=== PATIENT | male | born 1975 | race Caucasian/White ===

== ENCOUNTER → 2017-09-20 09:03 | Outpatient (CLI) | payer MEDICAID, SELFPAY ==
--- NOTE | 2017-09-20 15:30 | VAS_PTH ---
PATIENT: ISRAEL SOTO LOC: [facility] U#:[id number] AGE/SX: 50/M ROOM: RE09/20/[address]: Dr. Keon Sandra MD : 1975 BED: DIS: SPEC #: [id number] RECD: 09/21/17 08:55 STATUS: GERMANIADenise REQ #: [id number] ASHIA: 09/20/17 15:[address]: Keon Sandra DEPT: SURGICAL PATHOLOGY RECD BY: Aston Reyes ENTERED: 09/21/17 08:55 SP TYPE: VAS OTHR DR: Dr. Nestor Castellanos DO Tissues: A - Vas deferens, NOS B - Vas deferens, NOS Procedures: Surgery Specimen Level II Comments: @ Originally on account #[id number] Req #[id number] HEADER OPERATION: Bilateral partial vasectomy PRE-OP DIAGNOSIS: Sterilization TISSUE SUBMITTED: A ? Right vas deferens, B ? Left vas deferens MICROSCOPIC DIAGNOSIS A. Right vas deferens, partial vasectomy: Completely transected segment of vas deferens, no pathologic diagnosis. B. Left vas deferens, partial vasectomy: Completely transected segment of vas deferens, no pathologic diagnosis. GRABIEL:kathi 09/24/17 MICROSCOPIC DESCRIPTION Slides are reviewed. GROSS DESCRIPTION A - Received is one container designated right vas deferens. The specimen consists of a cylindrical segment of pink-denise soft tissue. The fragment measures 1 cm in length and 0.1 cm in maximum diameter. Serial sections do not reveal gross lesions. The specimen is totally submitted in one cassette. The specimen will be sectioned at the time of embedding. B - Received is one container designated left vas deferens. The specimen consists of a cylindrical segment of pink-denise soft tissue. The fragment measures 1.2 cm in length and 0.1 cm in maximum diameter. Serial sections do not reveal gross lesions. The specimen is totally submitted in one cassette. The specimen will be sectioned at the time of embedding. / GRABIEL:kathi 09/21/17 TC:4 CPT: 10890 x2
== END ==
PROVIDERS: Family Provider Student in an Organized Health Care Education/Training Program; PCP Student in an Organized Health Care Education/Training Program; Visit Provider Surgery
DX: Z30.2 Encounter for sterilization (principal)
CPT/HCPCS: 88302

== ENCOUNTER → 2017-11-09 09:34 | Outpatient (CLI) | payer MEDICAID, SELFPAY ==
[2017-11-09 14:34] LABS: Semen Analysis Post Vas ABSENT
== END ==
PROVIDERS: Visit Provider Surgery
DX: Z30.2 Encounter for sterilization (principal)
CPT/HCPCS: 89321

== ENCOUNTER 2025-04-11 15:06 | Emergency (ER) | payer MEDICAID, SELFPAY ==
[2025-04-11 15:10] VITALS: BP 134/89; PULSE 91; RESP 18; TEMP 36.7; O2SAT 97; BMI 25.2
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
--- NOTE | 2025-04-11 15:45 | RAD_ITS ---
PROCEDURE: CHEST PA AND LATERAL 04/11/2025 REASON FOR EXAM: RIGHT LOWER RIB CAGE PAIN POSTTRAUMA. TECHNIQUE: Procedure Code: RADCXR Modality: DX Procedure: CHEST PA AND LATERAL COMPARISON: None. FINDINGS: LUNGS AND PLEURA: No focal airspace consolidation. No pleural effusion or pneumothorax. HEART AND MEDIASTINUM: The heart size and mediastinal contours are normal. BONES: Slight contour abnormality of the right anterolateral 9th rib. RAD/Chest PA and Lateral IMPRESSION: Questionable nondisplaced right anterolateral 9th rib fracture. Correlate clin ically for pain in this region. Reading Location: [id number]
--- OUTSIDE RECORDS SUMMARY | 2025-04-11 16:17 | XMS RPT_ITS | CCD ---
Author Organization [facility] Care Team Providers Care Double Back Operator Name Role Phone Cebul, Keon Unavailable Unavailable Juárez, Nestor Unavailable Unavailable Juárez, Nestor Unavailable Unavailable Cebul, Keon Unavailable Unavailable Juárez, Nestor Unavailable Unavailable Juárez, Nestor Unavailable Unavailable Cebul, Keon Unavailable Unavailable Cebul, Keon Unavailable Unavailable Juárez, Nestor Unavailable Unavailable Cebul, Keon Unavailable Unavailable Juárez, Nestor Unavailable Unavailable Juárez, Nestor Unavailable Unavailable Cebul, Keon Unavailable Unavailable Nestor Juárez DO Primary Care Provider Nestor Juárez DO Primary Care Provider Nestor Juárez DO Primary Care Provider Nestor Juárez DO Primary Care Provider Perez [employer] TE[employer]ER.Margaret SNEED Unavailable Kyle [employer]ATIONAL SCHOOL TEACHER.Jey SNEED Unavailable El [employer]ATIONAL SCHOOL TEACHER.Chika SNEED Unavailable NESTOR JUÁREZ Attending Unavailable NESTOR JUÁREZ Primary Care Unavailable LINDA GRANGER Attending Unavailable NESTOR JUÁREZ Primary Care Unavailable JEY WRIGHT Attending Unavailable NESTOR JUÁREZ Primary Care Unavailable JEREMIAS ETIENNE Attending Unavailab NESTOR Lipscomb Primary Care Unavailable MARGARET TODD Referring Unavailabl e NESTOR JUÁREZ Primary Care Unavailable Allergies Allergy Classification Reported Allergen(s) Allergy Type Date of Onset Reaction(s) Facility (20 sources) Seasonal allergy; Translations: [SEASONAL ALLERGIES] Allergy to substance 0 Other: See Comments [facility] Medications Current Medications Medication Drug Class(es) Dates Sig (Normalized) Sig (Original) ascorbic acid 1000 mg oral tablet (20 sources) Vitamin C Start: 03-28-2022 End: 04-24-2022 take 1 tablet by mouth once daily Ascorbic Acid (VITAMIN C) 1,000 mg tablet Take 1 tablet by mouth once daily. 60 tablet 11 04/24/2022 Active Comment on above: Take 1 tablet by asim th once daily. calcium carb-mag ox-zinc gluc 333-133-5 mg tab (20 sources) Start: 12-15-2022 take 1 tablet by mouth twice daily calcium carb-mag ox-zinc gluc 333-133-5 mg tab Take 1 tablet by mouth twice daily. 200 tablet 11 12/15/2022 Active Start: 04-24-2022 End: 12-14-2022 take 1 tablet by mouth twice daily calcium carb-mag ox-zinc gluc 333-133-5 mg tab Take 1 tablet by mouth twice daily. 200 tablet 11 04/24/2022 12/14/2022 Discontinued Start: 04-24-2022 take 1 tablet by asim th twice daily calcium carb-mag ox-zinc gluc 333-133-5 mg tab Take 1 tablet by mouth twice daily. 200 tablet 11 04/24/2022 Active Start: 03-28-2022 End: 04-24-2022 take 1 tablet by mouth twice daily calcium carb-mag ox-zinc gluc 333-133-5 mg tab Take 1 tablet by mouth twice daily. 200 tablet 11 03/28/2022 04/24/2022 Discontinued Start: 03-28-2022 take 1 tablet by asim th twice daily calcium carb-mag ox-zinc gluc 333-133-5 mg tab Take 1 tablet by mouth twice daily. 200 tablet 11 03/28/2022 Active Comment on above: Take 1 tablet by asim th twice daily. cholecalciferol, vitD3,/vit K2 (VITAMIN D3-VITAMIN K2) 125-90 mcg cap (20 sources) Start: 12-15-2022 take 1 capsule by mouth once daily cholecalciferol, vitD3,/vit K2 (VITAMIN D3-VITAMIN K2) 125-90 mcg cap Take 1 capsule by mouth once daily. 60 capsule 11 12/15/2022 Active Start: 04-24-2022 End: 08-31-2022 take 1 capsule by mouth once daily cholecalciferol, vitD3,/vit K2 (VITAMIN D3-VITAMIN K2) 125-90 mcg cap Take 1 capsule by mouth once daily. 60 capsule 11 04/24/2022 08/31/2022 Discontinued Start: 04-24-2022 take 1 capsule by mo ut once daily cholecalciferol, vitD3,/vit K2 (VITAMIN D3-VITAMIN K2) 125-90 mcg cap Take 1 capsule by mouth once daily. 60 capsule 11 04/24/2022 Active Start: 03-28-2022 End: 04-24-2022 take 1 capsule by mouth once daily cholecalciferol, vitD3,/vit K2 (VITAMIN D3-VITAMIN K2) 125-90 mcg cap Take 1 capsule by mouth once daily. 60 capsule 11 03/28/2022 04/24/2022 Discontinued Start: 03-28-2022 take 1 capsule by mo ut once daily cholecalciferol, vitD3,/vit K2 (VITAMIN D3-VITAMIN K2) 125-90 mcg cap Take 1 capsule by mouth once daily. 60 capsule 11 03/28/2022 Active Comment on above: Take 1 capsule by mo ut once daily. cyclobenzaprine hydrochloride 10 mg oral tablet (20 sources) Muscle Relaxant Start: 023 cyclobenzaprine (FLEXERIL) 10 mg tablet Indications: Acute midline low back pain with right-sided sciatica Take 1/2 to 1 full tablet three times daily as needed for back pain/spasm 30 tablet 1 07/28/2022 Active Comment on above: Take 1/2 to 1 full t ablet three times daily as needed for back pain/spasm DULoxetine 20 mg delayed release oral capsule (2 sources) Serotonin and Norepinephrine Reuptake Inhibitor Start: 025 End: 025 take 1 capsule by mouth once daily DULoxetine DR (CYMBALTA) 20 mg capsule Indications: Irritability , Depression with anxiety Take 1 capsule by mouth once daily. 30 capsule 1 03/17/2025 05/16/2025 Active krill oil 500 mg oral capsule (20 sources) Start: 022 End: 023 take 3 capsules by mouth once daily krill oil 500 mg cap Indications: Dyslipidemia Take 3 capsules by mouth once daily. 90 capsule 3 12/15/2022 Active Comment on above: Take 3 capsules by m [facility] once daily. naproxen 500 mg oral tablet (20 sources) Nonsteroidal Anti-inflammatory Drug Start: 017 take 1 tablet by mouth twice daily at mealtime naproxen (NAPROSYN) 500 mg tablet Take 1 tablet by mouth twice daily with meals. 60 tablet 2 12/27/2016 Active Comment on above: Take 1 tablet by asim th twice daily with meals. polyethylene glycol 3350 932418 mg / potassium chloride 2970 mg / sodium bicarbonate 6740 mg / sodium chloride 5860 mg / sodium sulfate 96853 mg powder for oral solution (1 source) Osmotic Laxative Start: peg 3350-Electrolytes (GOLYTELY) 236-22.74-6.74 -5.86 gram suspension Refer to printed prep instructions from your provider. 4000 mL 03/18/2025 Active rosuvastatin calcium 10 mg oral tablet (20 sources) HMG-CoA Reductase Inhibitor Start: End: take 1 tablet by mouth once daily at bedtime rosuvastatin (CRESTOR) 10 mg tablet Take 1 tablet by mouth daily at bedtime. 90 tablet 1 01/30/2025 Active Start: 09-12-2021 take 1 tablet by asim th once daily at bedtime rosuvastatin (CRESTOR) 10 mg tablet Take 1 tablet by mouth daily at bedtime. 90 tablet 1 09/12/2021 Active Comment on above: Take 1 tablet by asim th daily at bedtime. sildenafil 100 mg oral tablet (20 sources) Phosphodiesterase 5 Inhibitor Start: 03-26-2024 End: 03-05-2025 sildenafil (VIAGRA) 100 mg tablet Indications: ED (erectile dysfunction) of organic origin Take 1 tablet by mouth as needed (erectile dysfunction). Limit to only 1 tablet per 24 hour period of time 30 tablet 1 03/05/2025 Active Start: 12-15-2022 End: 03-24-2024 sildenafil (VIAGRA) 100 mg t ablet Indications: ED (erectile dysfunction) of organic origin Take 1 tablet by mouth as needed (erectile dysfunction). Limit to only 1 tablet per 24 hour period of time 30 tablet 1 01/16/2024 03/24/2024 Discontinued Start: 03-28-2022 End: 08-31-2022 sildenafil (VIAGRA) 100 mg t ablet Indications: ED (erectile dysfunction) of organic origin Take 1 tablet by mouth as needed (erectile dysfunction). Limit to only 1 tablet per 24 hour period of time 30 tablet 1 08/01/2022 08/31/2022 Discontinued Start: 08-29-2021 End: 02-09-2022 sildenafil (VIAGRA) 100 mg t ablet Indications: ED (erectile dysfunction) of organic origin Take 1 tablet by mouth as needed (erectile dysfunction). Limit to only 1 tablet per 24 hour period of time 30 tablet 1 02/09/2022 Active Comment on above: Take 1 tablet by asim as needed (erectile dysfunction). Limit to only 1 tablet per 24 hour period of time vitamin b complex capsule (20 sources) Start: 11-20-2023 take 1 capsule by mouth once daily vitamin b complex capsule Take 1 capsule by mouth once daily. 100 capsule 11 11/20/2023 Active Start: 04-24-2022 End: 11-20-2023 take 1 capsule by mouth once daily vitamin b complex capsule Take 1 capsule by mouth once daily. 100 capsule 11 04/24/2022 11/20/2023 Discontinued Start: 04-24-2022 take 1 capsule by mo uth once daily vitamin b complex capsule Take 1 capsule by mouth once daily. 100 capsule 11 04/24/2022 Active Start: 03-28-2022 End: 04-24-2022 take 1 capsule by mouth once daily vitamin b complex capsule Take 1 capsule by mouth once daily. 100 capsule 11 03/28/2022 04/24/2022 Discontinued Start: 03-28-2022 take 1 capsule by mo uth once daily vitamin b complex capsule Take 1 capsule by mouth once daily. 100 capsule 11 03/28/2022 Active Comment on above: Take 1 capsule by mo uth once daily. Problems Active Problems Problem Classification Problem Date Documented Date Episodic/Chronic Administrative/social admission (1 source) Relationship problems; Translations: [Problem related to primary support group, unspecified] 03-18-2025 Episodic Anxiety disorders (2 sources) Mixed anxiety and depressive disorder; Translations: [Other specified anxiety disorders] Onset: 03-17-2025 03-17-2025 Chronic Anxiety disorders (2 sources) Feeling irritable; Translations: [Irritability and anger] Onset: 03-17-2025 03-17-2025 Episodic Disorders of lipid metabolism (20 sources) Dyslipidemia; Translations: [Hyperlipidemia, unspecified] Onset: 11-25-2013 03-09-2021 Chronic Other and unspecified benign neoplasm (2 sources) History of polyp of colon; Translations: [History of colonic polyps] 03-18-2025 Episodic Other connective tissue disease (1 source) Other symptoms and signs involving the musculoskeletal system; Translations: [Other musculoskeletal symptoms referable to limbs] 10-08-2024 Episodic Other male genital disorders (20 sources) Secondary erectile dysfunction; Translations: [Male erectile dysfunction, unspecified] Onset: 03-28-2022 Chronic Other screening for suspected conditions (not mental disorders or infectious disease) (20 sources) Serum creatinine raised; Translations: [Other specified abnormal findings of blood chemistry] Onset: 03-09-2021 03-09-2021 Episodic Residual codes; unclassified (2 sources) Family history of cancer of colon; Translations: [Family history of malignant neoplasm of digestive organs] 03-18-2025 Episodic Residual codes; unclassified (1 source) Family history of malignant neoplasm of digestive organs; Translations: [Family history of colon cancer in mother] Onset: 03-18-2025 Episodic Unclassified (1 source) Patient encounter status 03-18-2025 Unclassified (1 source) History of colonic polyps; Translations: [History of colonic polyps] Onset: 03-18-2025 Viral infection (1 source) Verruca vulgaris; Translations: [Other viral warts] 03-26-2024 Episodic Past or Other Problems Problem Classification Problem Date Documented Date Episodic/Chronic Abdominal pain (20 sources) Right upper quadrant pain; Translations: [Right upper quadrant pain] Onset: 08-08-2022 Episodic Contraceptive and procreative management (1 source) Encounter for sterilization; Translations: [Z30.2 - Encounter for sterilization] Onset: 09-27-2017 Episodic Genitourinary symptoms and ill-defined conditions (20 sources) Urgent desire to urinate; Translations: [Urgency of urination] Onset: 03-28-2022 03-28-2022 Episodic Malaise and fatigue (20 sources) Fatigue; Translations: [Other fatigue] Onset: 11-25-2013 11-25-2013 Episodic Other connective tissue disease (20 sources) Plantar fasciitis; Translations: [Plantar fascial fibromatosis] Onset: 12-27-2016 12-27-2016 Episodic Other endocrine disorders (20 sources) Hypotestosteronism; Translations: [Endocrine disorder, unspecified] Onset: 03-28-2022 03-28-2022 Episodic Other liver diseases (20 sources) Aspartate aminotransferase serum level raised; Translations: [Elevated AST (SGOT)] Onset: 03-09-2021 03-09-2021 Episodic Other non-traumatic joint disorders (19 sources) Pain in right hip joint; Translations: [Pain in right hip] Onset: 08-08-2022 Episodic Other non-traumatic joint disorders (14 sources) Hip pain; Translations: [Pain in right hip] Onset: 08-08-2022 08-08-2022 Episodic Other skin disorders (20 sources) Actinic keratosis; Translations: [Actinic keratosis] Onset: 06-18-2023 06-18-2023 Episodic Other skin disorders (20 sources) Seborrheic keratosis; Translations: [Other seborrheic keratosis] Onset: 06-18-2023 06-18-2023 Episodic Other skin disorders (20 sources) Trichilemmal cyst; Translations: [Pilar cyst] Onset: 07-22-2020 Resolved: 07-22-2020 07-22-2020 Episodic Spondylosis; intervertebral disc disorders; other back problems (20 sources) Acute back pain with sciatica; Translations: [Lumbago with sciatica, right side] Onset: 08-08-2022 Episodic Results Test Name Value Interpretation Reference Range Facility [facility] 03-18-2025 [facility] Office Visit (GENSWS ) ISRAEL VILLAR ([id number]) 1975 M Date Time Provider Department 03/18/25 1:00 PM LINDA GRANGER [facility] During your visit today, we recorded the following information about you: Temperature Pulse Blood pressure Weight 98 degrees 58/minute 108/69 74.9 kg Height 1.68 m Linda Granger APRN.NEDRA 03/18/2025 1:42 PM Signed HISTORY AND PHYSICAL Israel Villar : 1975 REFERRING PHYSICIAN: No referring provider defined for this encounter. CHIEF COMPLAINT: Patient presents with: Consult HPI: Israel is a 50 year old male referred for endoscopy. Israel notes due for screening colonoscopy-hx of colon polyps (2019). Israel denies abdominal pain.. Israel denies diarrhea. Israel denies constipation. Israel denies a change in bowel habits. Israel denies melena. Israel denies bright red blood per rectum. Israel notes family history of colon issues. Mother with colon caner Israel denies heartburn. Israel denies dysphagia. Israel has undergone prior endoscopy. Last colonoscopy was 02/2020 with at [facility]. Sedation: Fentanyl 100 micrograms IV, Midazolam 5 mg IV Impression: - One 8 mm polyp in the descending colon, removed with a hot snare. Resected and retrieved. Clip was placed. CONVERTED FINAL DIAGNOSIS Ascending colon polyp, biopsy (A) - Tubular adenoma. WILLY/LAURENT/alexandra 02/17/2020 Current Outpatient Medications Medication Sig DULoxetine DR (CYMBALTA) 20 mg capsule Take 1 capsule by mouth once daily. sildenafil (VIAGRA) 100 mg tablet Take 1 tablet by mouth as needed (erectile dysfunction). Limit to only 1 tablet per 24 hour period of time sildenafil (VIAGRA) 100 mg tablet Take 1 tablet by mouth as needed (erectile dysfunction). Limit to only 1 tablet per 24 hour period of time rosuvastatin (CRESTOR) 10 mg tablet Take 1 tablet by mouth daily at bedtime. vitamin b complex capsule Take 1 capsule by mouth once daily. calcium carb-mag ox-zinc gluc 333-133-5 mg tab Take 1 tablet by mouth twice daily. krill oil 500 mg cap Take 3 capsules by mouth once daily. cholecalciferol, vitD3,/vit K2 (VITAMIN D3-VITAMIN K2) 125-90 mcg cap Take 1 capsule by mouth once daily. cyclobenzaprine (FLEXERIL) 10 mg tablet Take 1/2 to 1 full tablet three times daily as needed for back pain/spasm Ascorbic Acid (VITAMIN C) 1,000 mg tablet Take 1 tablet by mouth once daily. naproxen (NAPROSYN) 500 mg tablet Take 1 tablet by mouth twice daily with meals. peg 3350-Electrolytes (GOLYTELY) 236-22.74-6.74 -5.86 gram suspension Refer to printed prep instructions from your provider. No current facility-administered medications for this visit. ALLERGIES: Seasonal Allergies PAST MEDICAL HISTORY Diagnosis Date ED (erectile dysfunction) of non-organic origin Hyperlipemia lazy eye Low back pain Seborrheic keratoses PAST SURGICAL HISTORY Procedure Laterality Date COLONOSCOPY FLX DX W/COLLJ SPEC WHEN PFRMD 03/02/2014 Colonoscopy COLONOSCOPY FLX DX W/COLLJ SPEC WHEN PFRMD 02/16/2020 Colonoscopy HERNIA REPAIR HX age 4 and 12 2 inguinal hernia repairs PAST SURGICAL HISTORY OF 2020 Removal of Pilar cyst of scalp FAMILY HISTORY Problem Relation Age of Onset Colon Cancer Mother 44 at 44 with this. Cancer Father 68 Kidney 68 Cervical Cancer Sister abnormal pap Seizures Brother Diabetes Maternal Grandfather Cancer Maternal Grandfather Cancer Paternal Grandfather SOCIAL HISTORY[1] REVIEW OF SYMPTOMS: REVIEW OF SYSTEMS: General: The patient denies fatigue, denies weight loss, denies weight gain, denies feeling hot, and feelings of cold. Eyes: The patient denies glaucoma, denies eye injury/surgery, + glasses or contacts. Ear/Nose/Throat: The patient + allergies, denies hayfever, denies ear infections, and denies bloody noses. Cardiovascular: The patient denies chest pain, denies heart disease, denies high blood pressure, denies high cholesterol, and denies poor circulation. Respiratory: The patient denies tuberculosis, denies pneumonia, denies frequent cough, denies shortness of breath, and denies coughing up blood. Gastrointestinal: The patient denies difficulty swallowing, denies acid reflux, denies ulcers, denies jaundice/hepatitis, denies gallbladder problems, denies vomiting, denies black or tarry stools, denies hemorrhoids, denies bleeding from rectum, denies diverticulitis, denies constipation, denies diarrhea, denies loss of stool control, and denies hernias. Kidney/Bladder: The patient denies kidney stones, denies urine infections, and denies bloody urine. Skin: The patient denies a history of skin cancer, denies bleeding/changing moles, and denies a history of skin rash. Neurologic: The patient denies a history of epilepsy/convulsions, denies headaches, denies head/spinal injuries, and denies stroke/ (more content not included)... Normal [facility] 25(OH)D3 SerPl-mCncon 2023 25-hydroxyvitamin D3 [Mass/Vol] 60.5 ng/mL Normal 31.0-80.0 [facility] Comment on above: Order Comment: Speci men Type: BLOOD SPECIMEN Ordering Facility: [facility] Address: [address] [place] [address] Result Comment: Clas sification of 25 OH Vitamin D status: Deficiency/Insufficiency: < or = 30 ng/ml. Sufficiency/Optimal Levels: 31-80 ng/mL Toxicity: > 100 ng/mL. Test performed by chemiluminescent immunoassay. Performed By: #### 1 989-3 #### [facility] CLIA [id number] [address] [place], [place] [address] [place] [address] [place] CBC W Auto Differential pane l (Bld)on 04-14-2024 Basophils (Bld) [#/Vol] 0.03 10*3/uL Normal <0.11 [facility] Comment on above: Order Comment: Speci men Type: BLOOD SPECIMEN Ordering Facility: [facility] Address: [address] [place] [address] Performed By: #### 5 7021-8 #### [facility] CLIA [id number] [address] [place] [address] [place] Basophils/100 WBC (Bld) 0.5 % Normal [facility] Comment on above: Order Comment: Speci men Type: BLOOD SPECIMEN Ordering Facility: [facility] Address: [address] [place] [address] Performed By: #### 5 7021-8 #### [facility] CLIA [id number] [address] [place] [address] [place] Differential cell count method Nom (Bld) Auto Normal [facility] Comment on above: Order Comment: Speci men Type: BLOOD SPECIMEN Ordering Facility: [facility] Address: [address] [place] [address] Performed By: #### 5 7021-8 #### [facility] CLIA [id number] [address] [place] [address] [place] Eosinophils (Bld) [#/Vol] 0.40 10*3/uL Normal <0.46 [facility] Comment on above: Order Comment: Speci men Type: BLOOD SPECIMEN Ordering Facility: [facility] Address: [address] [place], [place] [id number] Performed By: #### 5 7021-8 #### [facility] CLIA [id number] [address] [place] [address] [place] Eosinophils/100 WBC (Bld) 7.0 % Normal [facility] Comment on above: Order Comment: Speci men Type: BLOOD SPECIMEN Ordering Facility: [facility] Address: [address] [place] [address] Performed By: #### 5 7021-8 #### [facility] CLIA [id number] [address] [place] [address] [place] Erythrocyte distribution width (RBC) [Ratio] 12.4 % Normal 11.5-15.0 [facility] Comment on above: Order Comment: Speci men Type: BLOOD SPECIMEN Ordering Facility: [facility] Address: [address] [place] [address] Performed By: #### 5 7021-8 #### [facility] CLIA [id number] [address] [place] [address] [place] Hematocrit (Bld) [Volume fraction] 44.9 % Normal 39.0-51.0 [facility] Comment on above: Order Comment: Speci men Type: BLOOD SPECIMEN Ordering Facility: [facility] Address: [address] [place] [address] Performed By: #### 5 7021-8 #### [facility] CLIA [id number] [address] [place] [address] [place] Hemoglobin (Bld) [Mass/Vol] 15.1 g/dL Normal 13.0-17.0 [facility] Comment on above: Order Comment: Speci men Type: BLOOD SPECIMEN Ordering Facility: [facility] Address: [address] [place] [address] Performed By: #### 5 7021-8 #### [facility] CLIA [id number] [address] [place] [address] [place] Immature granulocytes (Bld) [#/Vol] 10*3/uL Normal <0.10 [facility] Comment on above: Order Comment: Speci men Type: BLOOD SPECIMEN Ordering Facility: [facility] Address: [address] [place] [address] Performed By: #### 5 7021-8 #### [facility] CLIA [id number] [address] [place] [address] [place] Immature granulocytes/100 WBC (Bld) 0.2 % Normal [facility] Comment on above: Order Comment: Speci men Type: BLOOD SPECIMEN Ordering Facility: [facility] Address: [address] [place] [address] Performed By: #### 5 7021-8 #### [facility] CLIA [id number] [address] [place] [address] [place] Lymphocytes (Bld) [#/Vol] 1.76 10*3/uL Normal 1.00-4.00 [facility] Comment on above: Order Comment: Speci men Type: BLOOD SPECIMEN Ordering Facility: [facility] Address: [address] [place] [address] Performed By: #### 5 7021-8 #### [facility] CLIA [id number] [address] [place] [address] [place] Lymphocytes/100 WBC (Bld) 30.7 % Normal [facility] Comment on above: Order Comment: Speci men Type: BLOOD SPECIMEN Ordering Facility: [facility] Address: [address] [place] [address] Performed By: #### 5 7021-8 #### [facility] CLIA [id number] [address] [place] [address] [place] MCH (RBC) [Entitic mass] 30.1 pg Normal 26.0-34.0 [facility] Comment on above: Order Comment: Speci men Type: BLOOD SPECIMEN Ordering Facility: [facility] Address: [address] [place] [address] Performed By: #### 5 7021-8 #### [facility] CLIA [id number] [address] [place] [address] [place] MCHC (RBC) [Mass/Vol] 33.6 g/dL Normal 30.5-36.0 [facility] Comment on above: Order Comment: Speci men Type: BLOOD SPECIMEN Ordering Facility: [facility] Address: [address] [place] [address] Performed By: #### 5 7021-8 #### [facility] CLIA [id number] [address] [place] [address] [place] MCV (RBC) [Entitic vol] 89.6 fL Normal 80.0-100.0 [facility] Comment on above: Order Comment: Speci men Type: BLOOD SPECIMEN Ordering Facility: [facility] Address: [address] [place] [address] Performed By: #### 5 7021-8 #### [facility] CLIA [id number] [address] [place] [address] [place] Monocytes (Bld) [#/Vol] 0.55 10*3/uL Normal <0.87 [facility] Comment on above: Order Comment: Speci men Type: BLOOD SPECIMEN [facility] [facility] Address: [address] [place] [address] Performed By: #### 5 7021-8 #### [facility] CLIA [id number] [address] [place] [address] [place] Monocytes/100 WBC (Bld) 9.6 % Normal [facility] Comment on above: Order Comment: Speci men Type: BLOOD SPECIMEN Ordering Facility: [facility] Address: [address] [place] [address] Performed By: #### 5 7021-8 #### [facility] CLIA [id number] [address] [place] [address] [place] Neutrophils (Bld) [#/Vol] 2.98 10*3/uL Normal 1.45-7.50 [facility] Comment on above: Order Comment: Speci men Type: BLOOD SPECIMEN Ordering Facility: [facility] Address: [address] [place] [address] Performed By: #### 5 7021-8 #### [facility] CLIA [id number] [address] [place] [address] [place] Neutrophils/100 WBC (Bld) 52.0 % Normal [facility] Comment on above: Order Comment: Speci men Type: BLOOD SPECIMEN Ordering Facility: [facility] Address: [address] [place] [address] Performed By: #### 5 7021-8 #### [facility] CLIA [id number] [address] [place] [address] [place] Nucleated RBC (Bld) [#/Vol] 10*3/uL Normal <0.01 [facility] Comment on above: Order Comment: Speci men Type: BLOOD SPECIMEN Ordering Facility: [facility] Address: [address] [place], [place] [address] Performed By: #### 5 7021-8 #### [facility] CLIA [id number] [address] [place] [address] [place] Nucleated RBC/100 WBC (Bld) [Ratio] 0.0 /100 WBC Normal [facility] Comment on above: Order Comment: Speci men Type: BLOOD SPECIMEN Ordering Facility: [facility] Address: [address] [place], [place] [address] Performed By: #### 5 7021-8 #### [facility] CLIA [id number] [address] [place] [address] [place] Platelet mean volume (Bld) [Entitic vol] 9.7 fL Normal 9.0-12.7 [facility] Comment on above: Order Comment: Speci men Type: BLOOD SPECIMEN Ordering Facility: [facility] Address: [address] [place], [place] [address] Performed By: #### 5 7021-8 #### [facility] CLIA [id number] [address] [place] [address] [place] Platelets (Bld) [#/Vol] 179 10*3/uL Normal 150-400 [facility] Comment on above: Order Comment: Speci men Type: BLOOD SPECIMEN Ordering Facility: [facility] Address: [address] [place] [address] Performed By: #### 5 7021-8 #### [facility] CLIA [id number] [address] [place] [address] [place] RBC (Bld) [#/Vol] 5.01 10*6/uL Normal 4.20-6.00 [facility] Comment on above: Order Comment: Speci men Type: BLOOD SPECIMEN Ordering Facility: [facility] Address: [address] [place] [address] Performed By: #### 5 7021-8 #### [facility] CLIA [id number] [address] [place] [address] [place] WBC (Bld) [#/Vol] 5.73 10*3/uL Normal 3.70-11.00 [facility] Comment on above: Order Comment: Speci men Type: BLOOD SPECIMEN Ordering Facility: [facility] Address: [address] [place] [address] Performed By: #### 5 7021-8 #### [facility] CLIA [id number] [address] [place] [id number] [place] Comprehensive metabolic 2000 panelon 04-14-2024 Albumin [Mass/Vol] 4.7 g/dL Normal 3.9-4.9 [facility] Comment on above: Order Comment: Speci men Type: BLOOD SPECIMEN Ordering Facility: [facility] Address: [address] [place] [address] Performed By: #### T FTEST #### [facility] CLIA [id number] [address] [place] [address] ALP [Catalytic activity/Vol] 72 U/L Normal 38-113 [facility] Comment on above: Order Comment: Speci men Type: BLOOD SPECIMEN Ordering Facility: [facility] Address: [address] [place] [address] Performed By: #### T FTEST #### [facility] CLIA [id number] [address] [place] [address] ALT [Catalytic activity/Vol] 18 U/L Normal 10-54 [facility] Comment on above: Order Comment: Speci men Type: BLOOD SPECIMEN Ordering Facility: [facility] Address: [address] [place] [address] Performed By: #### T FTEST #### [facility] CLIA [id number] [address] [place] [address] Anion gap [Moles/Vol] 12 mmol/L Normal 8-15 [facility] Comment on above: Order Comment: Speci men Type: BLOOD SPECIMEN Ordering Facility: [facility] Address: [address] [place] [address] Performed By: #### T FTEST #### [facility] CLIA [id number] [address] [place] [address] AST [Catalytic activity/Vol] 19 U/L Normal 14-40 [facility] Comment on above: Order Comment: Speci men Type: BLOOD SPECIMEN Ordering Facility: [facility] Address: [address] [place] [address] Performed By: #### T FTEST #### [facility] CLIA [id number] [address] [place] [address] Bilirubin [Mass/Vol] 1.0 mg/dL Normal 0.2-1.3 [facility] Comment on above: Order Comment: Speci men Type: BLOOD SPECIMEN Ordering Facility: [facility] Address: [address] [place] [address] Performed By: #### T FTEST #### [facility] CLIA [id number] [address] [place] [address] Calcium [Mass/Vol] 9.6 mg/dL Normal 8.5-10.2 [facility] Comment on above: Order Comment: Speci men Type: BLOOD SPECIMEN Ordering Facility: [facility] Address: [address] [place] [address] Performed By: #### T FTEST #### [facility] CLIA [id number] [address] [place] [address] Chloride [Moles/Vol] 105 mmol/L Normal 98-107 [facility] Comment on above: Order Comment: Speci men Type: BLOOD SPECIMEN Ordering Facility: [facility] Address: [address] [place] [address] Performed By: #### T FTEST #### [facility] CLIA [id number] [address] [place] [address] CO2 [Moles/Vol] 25 mmol/L Normal 22-30 [facility] Comment on above: Order Comment: Speci men Type: BLOOD SPECIMEN Ordering Facility: [facility] Address: [address] [place] [address] Performed By: #### T FTEST #### [facility] CLIA [id number] [address] [place] [address] Creatinine [Mass/Vol] 1.16 mg/dL Normal 0.73-1.22 [facility] Comment on above: Order Comment: Tr jordan Type: BLOOD SPECIMEN Ordering Facility: [facility] Address: [address] [place] [address] Performed By: #### T FTEST #### [facility] CLIA [id number] [address] [place] [address] Creatinine and Glomerular filtration rate.predicted panel (S/P/Bld) 77 mL/min/1.73m??? Normal >=60 [facility] Comment on above: Order Comment: Tr jordan Type: BLOOD SPECIMEN Ordering Facility: [facility] Address: [address] [place] [address] Result Comment: Karen mated Glomerular Filtration Rate (eGFR) is calculated using the 2020 CKD-EPI creatinine equation. This equation utilizes serum creatinine, sex, and age as parameters. The creatinine assay has traceable calibration to isotope dilution-mass spectrometry. Refer to KDIGO guidelines for clinical interpretation. In patients with unstable renal function, e.g. those with acute kidney injury, the eGFR may not accurately reflect actual GFR. Performed By: #### T FTEST #### [facility] CLIA [id number] [address] [place] [address] Glucose [Mass/Vol] 102 mg/dL High 74-99 [facility] Comment on above: Order Comment: Tr jordan Type: BLOOD SPECIMEN Ordering Facility: [facility] Address: [address] [place] [address] Result Comment: The [place] Diabetes Association (ADA) provides guidance for cutoff values for fasting glucose and random glucose. The ADA defines fasting as no caloric intake for at least 8 hours. Fasting plasma glucose results between 100 to 125 mg/dL indicate increased risk for diabetes (prediabetes). Fasting plasma glucose results greater than or equal to 126 mg/dL meet the criteria for diagnosis of diabetes. In the absence of unequivocal hyperglycemia, results should be confirmed by repeat testing. In a patient with classic symptoms of hyperglycemia or hyperglycemic crisis, random plasma glucose results greater than or equal to 200 mg/dL meet the criteria for diagnosis of diabetes. Reference: Standards of Medical Care in Diabetes 2016, [place] Diabetes Association. Diabetes Care. 2016.39(Suppl 1). Performed By: #### T FTEST #### [facility] CLIA [id number] [address] [place] [address] Potassium [Moles/Vol] 4.1 mmol/L Normal 3.7-5.1 [facility] Comment on above: Order Comment: Speci men Type: BLOOD SPECIMEN Ordering Facility: [facility] Address: [address] [place] [address] Performed By: #### T FTEST #### [facility] CLIA [id number] [address] [place] [address] Protein [Mass/Vol] 7.1 g/dL Normal 6.3-8.0 [facility] Comment on above: Order Comment: Speci men Type: BLOOD SPECIMEN Ordering Facility: [facility] Address: [address] [place] [address] Performed By: #### T FTEST #### [facility] CLIA [id number] [address] [place] [address] Sodium [Moles/Vol] 142 mmol/L Normal 136-144 [facility] Comment on above: Order Comment: Speci men Type: BLOOD SPECIMEN Ordering Facility: [facility] Address: [address] [place] [address] Performed By: #### T FTEST #### [facility] CLIA [id number] [address] [place] [address] Urea nitrogen [Mass/Vol] 14 mg/dL Normal 9-24 [facility] Comment on above: Order Comment: Speci men Type: BLOOD SPECIMEN Ordering Facility: [facility] Address: [address] [place] [address] Performed By: #### T FTEST #### [facility] CLIA [id number] [address] [place] [address] HbA1c (Bld)on 04-14-2024 Average glucose Estimated from glycated hemoglobin (Bld) [Mass/Vol] 105 mg/dL Normal [facility] Comment on above: Order Comment: Speci men Type: BLOOD SPECIMEN Ordering Facility: [facility] Address: [address] [place] [address] Result Comment: eAG: (Estimated average glucose) is a calculated value from HgbA1c and is counter sales representative of the average blood glucose level in the last 2-3 month period. Performed By: #### 5 5454-3 #### [facility] CLIA [id number] [address] [place] [address] [place] HbA1c (Bld) [Mass fraction] 5.3 % Normal 4.3-5.6 [facility] Comment on above: Order Comment: Tr jordan Type: BLOOD SPECIMEN Ordering Facility: [facility] Address: [address] [place] [address] Result Comment: [place] Diabetes Association guidelines indicate that patients with HgbA1c in the range 5.7-6.4% are at increased risk for development of diabetes, and intervention by lifestyle modification may be beneficial. HgbA1c greater or equal to 6.5% is considered diagnostic of diabetes. Performed By: #### 5 5454-3 #### [facility] CLIA [id number] [address] [place] [address] [place] Lipid 1996 panelon 4 Cholesterol [Mass/Vol] 147 mg/dL Normal <200 [facility] Comment on above: Order Comment: Tr jordan Type: BLOOD SPECIMEN Ordering Facility: [facility] Address: [address] [place] [address] Result Comment: <200 mg/dL, Desirable 200-239 mg/dL, Borderline high >239 mg/dL, High Performed By: #### 2 4331-1 #### [facility] CLIA [id number] [address] [place], [place] [id number] [place] [facility] CLIA [id number] [address] [place] [address] [place] #### 3016-3, 2132-9 #### [facility] CLIA [id number] [address] [place] [address] [place] Cholesterol in HDL [Mass/Vol] 46 mg/dL Normal >39 [facility] Comment on above: Order Comment: Daisyi men Type: BLOOD SPECIMEN Ordering Facility: [facility] Address: [address] [place] [address] Result Comment: 40-5 9 mg/dL, Acceptable >59 mg/dL, High: Negative risk factor for coronary heart disease <40 mg/dL, Low: Positive risk factor for coronary heart disease Performed By: #### 2 4331-1 #### [facility] CLIA [id number] [address] [place] [id number] [place] [facility] CLIA [id number] [address] [place] [address] [place] #### 3016-3, 2132-03 #### [facility] CLIA [id number] [address] [place] [address] [place] Cholesterol in LDL [Mass/Vol] 82 mg/dL Normal <100 [facility] Comment on above: Order Comment: Daisyi men Type: BLOOD SPECIMEN Ordering Facility: [facility] Address: [address] [place] [address] Result Comment: <100 mg/dL, Optimal 100-129 mg/dL, Near optimal/above optimal 130-159 mg/dL, Borderline high 160-189 mg/dL, High >189 mg/dL, Very high Secondary prevention optimal LDL Cholesterol levels are recommended to be < 70 mg/dL Performed By: #### 2 4331-1 #### [facility] CLIA [id number] [address] [place] [id number] [place] [facility] CLIA [id number] [address] [place] [address] [place] #### 3016-3, 2132-03 #### [facility] CLIA [id number] [address] [place], [place] [address] [place] Cholesterol in LDL/Cholesterol in HDL [Mass ratio] 1.78 {ratio} Normal <2.54 [facility] Comment on above: Order Comment: Speci men Type: BLOOD SPECIMEN Ordering Facility: [facility] Address: [address] [place] [address] Result Comment: Yazmin ilra: 1. National Cholesterol Education Program ATP III Guideline At-A-Glance Quick Desk Reference: National Heart, Lung, and Blood Aniwa. National Institutes of Health. 2001: NIH Publication No. 01-3305. 2. An International Atherosclerosis Society position paper: global recommendations for the management of dyslipidemia: executive summary, Atherosclerosis. 2014: 232(2):410-413. Performed By: #### 2 4331-1 #### [facility] CLIA [id number] [address] [place] [address] [place] [facility] [id number] [address] [place] [address] [place] #### 3016-3, 2132-03 #### [facility] CLIA [id number] [address] [place] [address] [place] Cholesterol in VLDL [Mass/Vol] 19 mg/dL Normal <30 [facility] Comment on above: Order Comment: Speci men Type: BLOOD SPECIMEN Ordering Facility: [facility] Address: [address] [place] [address] Performed By: #### 2 4331-1 #### [facility] CLIA [id number] [address] [place] [address] [place] [facility] [id number] [address] [place] [address] [place] #### 3016-3, 2132-03 #### [facility] CLIA [id number] [address] [place] [address] [place] Cholesterol non HDL [Mass/Vol] 101 mg/dL Normal <130 [facility] Comment on above: Order Comment: Speci men Type: BLOOD SPECIMEN Ordering Facility: [facility] Address: [address] [place], [place] [address] Result Comment: <130 mg/dL, Optimal 130-159 mg/dL, Near optimal/above optimal 160-189 mg/dL, Borderline high 190-219 mg/dL, High >219 mg/dL, Very high Secondary prevention optimal non HDL Cholesterol levels are recommended to be <100 mg/dL Performed By: #### 2 4331-1 #### [facility] CLIA [id number] [address] [place] [address] [place] [facility] CLIA [id number] [address] [place] [address] [place] #### 3016-3, 2132-03 #### [facility] CLIA [id number] [address] [place] [address] [place] Cholesterol.total/ Cholesterol in HDL [Mass ratio] 3.20 {ratio} Normal <5.10 [facility] Comment on above: Order Comment: Speci men Type: BLOOD SPECIMEN Ordering Facility: [facility] Address: [address] [place] [address] Performed By: #### 2 4331-1 #### [facility] CLIA [id number] [address] [place] [address] [place] [facility] CLIA [id number] [address] [place] [address] [place] #### 3016-3, 2132-03 #### [facility] CLIA [id number] [address] [place] [address] [place] FASTING TIME 15 hrs Normal [facility] Comment on above: Order Comment: Speci men Type: BLOOD SPECIMEN Ordering Facility: [facility] Address: [address] [place], [place] [address] Performed By: #### 2 4331-1 #### [facility] CLIA [id number] [facility] [place] [address] [place] [facility] CLIA [id number] [address] [place] [address] [place] #### 3016-3, 2132-03 #### [facility] CLIA [id number] [address] [place] [address] [place] Triglyceride [Mass/Vol] 96 mg/dL Normal <150 [facility] Comment on above: Order Comment: Speci men Type: BLOOD SPECIMEN Ordering Facility: [facility] Address: [address] [place] [address] Result Comment: <150 mg/dL, Normal 150-199 mg/dL, Borderline high 200-499 mg/dL, High >499 mg/dL, Very high Performed By: #### 2 4331-1 #### [facility] CLIA [id number] [address] [place] [address] [place] [facility] CLIA [id number] [address] [place] [address] [place] #### 3016-3, 2132-03 #### [facility] CLIA [id number] [address] [place] [address] [place] Magnesium SerPl-mCncon 04-14 Magnesium [Mass/Vol] 2.2 mg/dL Normal 1.7-2.3 [facility] Comment on above: Order Comment: Speci men Type: BLOOD SPECIMEN Ordering Facility: [facility] Address: [address] [place] [address] Performed By: #### T FTEST #### [facility] CLIA [id number] [address] [place] [address] PSA/PROSTATE SPECIFIC ANTIGE N SCREENINGon 04-14-2024 Prostate specific Ag [Mass/Vol] 0.80 ng/mL Normal <2.60 [facility] Comment on above: Order Comment: Speci men Type: BLOOD SPECIMEN Ordering Facility: [facility] Address: [address] [place] [address] Result Comment: Tota l PSA test methodology used is the Electrochemiluminescence Immunoassay by [employer]. Total PSA values by differing methodologies cannot be interchanged. Performed By: #### P SAS1 #### [facility] CLIA [id number] [address] [place] [address] [place] [address] [place] TESTOSTERONE, FREE AND TOTAL , BY EQUILIBRIUM ULTRAFILTRATION MASS SPECTROMETRYon 04-14-2024 Testosterone [Mass/Vol] 603.8 ng/dL Normal 264.0-916.0 [facility] Comment on above: Order Comment: Speci men Type: BLOOD SPECIMEN Ordering Facility: [facility] Address: [address] [place] [address] Result Comment: This [facility] LC/MS-MS method is currently certified by the CDC Hormone Standardization Program (HoSt). Adult male reference interval is based on a population of healthy nonobese males (BMI <30) between 19 and 39 years old. Sanam et.al. JCEM 2017,102;5588-3063. PMID: [id number]. Performed By: #### T FTEST #### [facility] CLIA [id number] [address] [place] [address] Testosterone Free [Mass/Vol] Comment Normal [facility] Comment on above: Order Comment: Speci men Type: BLOOD SPECIMEN Ordering Facility: [facility] Address: [address] [place] [address] Result Comment: Unab le to calculate result since non-numeric result obtained for component test. Performed By: #### T FTEST #### [facility] CLIA [id number] [address] [place] [address] Testosterone Free/Testosterone. total [Mass fraction] Normal [facility] Comment on above: Order Comment: Speci men Type: BLOOD SPECIMEN Ordering Facility: [facility] Address: [address] [place] [address] Result Comment: Test not performed. Insufficient specimen to perform or complete analysis. CONTACTED DANIEL COPPOLA AT YOUR FACILITY ON 04-23-2024 Performed By: #### T FTEST #### [facility] CLIA [id number] [address] [place] [address] TSH SerPl-aCncon 04-14-2024 TSH Qn 0.927 m[IU]/L Normal 0.270-4.200 [facility] Comment on above: Order Comment: Speci men Type: BLOOD SPECIMEN Ordering Facility: [facility] Address: [address] [place] [address] Performed By: #### 2 4331-1 #### [facility] CLIA [id number] [address] [place] [address] [place] [facility] [id number] [address] [place] [address] [place] #### 3016-3, 2132-03 #### [facility] CLIA [id number] [address] [place] [address] [place] Vit B12 SerPl-mCncon 024 Cobalamin (Vitamin B12) [Mass/Vol] 745 pg/mL Normal 232-1245 [facility] Comment on above: Order Comment: Speci men Type: BLOOD SPECIMEN Ordering Facility: [facility] Address: [address] [place] [address] Performed By: #### 2 4331-1 #### [facility] CLIA [id number] [address] [place] [address] [place] [facility] [id number] [address] [place] [address] [place] #### 3016-3, 2132-03 #### [facility] CLIA [id number] [address] [place] [address] [place] CNOVon 03-26-2024 CNOV Office Visit ([facility] ) ISRAEL VILLAR ([id number]) 1975 M Date Time Provider Department 03/26/24 2:00 PM NESTOR JUÁREZPWS During your visit today, we recorded the following information about you: Temperature Pulse Blood pressure Weight 97.8 degrees 80/minute 100/70 73.8 kg Height 1.68 m Nestor Juárez, DO 03/26/2024 2:40 PM Signed CC: Israel Villar is a 49 year old male who presents to the office for physical HPI: Overall he is doing well He is working on trying to maintain a healthy balanced diet. Needs to be weight lifting and exercising more routinely that what he is currently doing. Some fatigue, worse than in years past. Less motivation to lift etc. PAST MEDICAL HISTORY Diagnosis Date ED (erectile dysfunction) of non-organic origin Hyperlipemia lazy eye Low back pain PAST SURGICAL HISTORY Procedure Laterality Date COLONOSCOPY FLX DX W/COLLJ SPEC WHEN PFRMD 03/02/2014 Colonoscopy COLONOSCOPY FLX DX W/COLLJ SPEC WHEN PFRMD 02/16/2020 Colonoscopy HERNIA REPAIR HX age 4 and 12 2 inguinal hernia repairs Social History: Social History Tobacco Use Smoking status: Never Smokeless tobacco: Never Vaping Use Vaping status: Never Used Substance Use Topics Alcohol use: No Drug use: No FAMILY HISTORY Problem Relation Age of Onset Colon Cancer Mother 44 at 44 with this. Cancer Father 68 Kidney 68 Cervical Cancer Sister abnormal pap Seizures Brother Diabetes Maternal Grandfather Cancer Maternal Grandfather Cancer Paternal Grandfather Current Outpatient prescriptions: sildenafil (VIAGRA) 100 mg tablet Take 1 tablet by mouth as needed (erectile dysfunction). Limit to only 1 tablet per 24 hour period of time vitamin b complex capsule Take 1 capsule by mouth once daily. rosuvastatin (CRESTOR) 10 mg tablet Take 1 tablet by mouth daily at bedtime. calcium carb-mag ox-zinc gluc 333-133-5 mg tab Take 1 tablet by mouth twice daily. krill oil 500 mg cap Take 3 capsules by mouth once daily. cholecalciferol, vitD3,/vit K2 (VITAMIN D3-VITAMIN K2) 125-90 mcg cap Take 1 capsule by mouth once daily. cyclobenzaprine (FLEXERIL) 10 mg tablet Take 1/2 to 1 full tablet three times daily as needed for back pain/spasm Ascorbic Acid (VITAMIN C) 1,000 mg tablet Take 1 tablet by mouth once daily. naproxen (NAPROSYN) 500 mg tablet Take 1 tablet by mouth twice daily with meals. Allergies: ALLERGIES Allergen Reactions Seasonal Allergies Other: See Comments Sinus congestion ROS: See HPI PE: 03/26/24 1407 BP: 100/70 Pulse: 80 Temp: 36.6 ?C (97.8 ?F) TempSrc: Left Tympanic Weight: 73.8 kg (162 lb 11.2 oz) Height: 168 cm (5' 6.14) Gen: AANDO, NAD, non-toxic appearing, Pleasant, cooperative HEENT: NT/AC, PERRLA, EOMs intact b/l, nares clear and patent b/l, pharynx without erythema, exudate or lesions. MMM, Uvula midline. EACs without erythema or debris. TMs pearly avitia with intact landmarks b/l. Neck: supple, No cervical LAD, no thyromegaly, no carotid bruits CV: RRR, normal S1 and S2, no murmurs, no gallops, no rubs, Pulses 2+ and symmetric in UE and LE b/l Lungs: normal respiratory effort, CTA b/l, no wheezing or rhonchi or rales Abd: soft, NT, ND, +BS, no hepatosplenomegaly MS: FROM all 4 extremities Neuro: CN II-XII intact b/l, strength 5/5 b/l UE and LE, DTRs 2/4 UE and LE, sensation intact. Skin: warm, dry, intact, wart on left hand 3rd dorsal finger, scattered seborrheic keratoses No edema, normal pulses ASSESSMENT/PLAN: 1. Well adult exam - ICD9: V70.0, ICD10: Z00.00 (primary diagnosis) - Counseled on healthy diet and regular exercise - HEMOGLOBIN A1C - MAGNESIUM 2. Common wart - ICD9: 078.19, ICD10: B07.8 Treated x 1 with cryotherapy at request of patient, he tolerated the procedure well, no complications. 3. Dyslipidemia - ICD9: 272.4, ICD10: E78.5 - Control undetermined, due for labs - Counseled on healthy diet and regular exercise Nestor Juárez DO To ER if develops chest pain, shortness of breath, or severe worsening of symptoms. Discussed risks, benefits, alternatives, and potential side effects of medications. Patient expressed understanding and agreed with the plan. Nestor Juárez DO [address] [place] [address] Allergies As of Date: 03/26/2024 Noted Allergy Reaction SEASONAL ALLERGIES 12/24/2019 14 - Other: See Comments Comments: Sinus congestion Date Reviewed: 03/26/2024 Reviewed by: Radha Torrez LPN - Fully Assessed Reason for Visit: Yearly Exam [187] Primary Visit Diagnosis:Well adult exam [Z00.00] Other Visit Diagnoses:Common wart [B07.8] Dyslipidemia [E78.5] Order(s):HEMOGLOBIN A1C [YRWYE4P] Order #: [id number] FUTURE MAGNESIUM [SQMG1] Order #: [id number] FUTURE Prescriptions as of 03/26/2024 - otto (more content not included)... Normal [facility] No Panel Informationon 08-09 [facility] Urinalysis complete panel (U )on 08-08-2022 Bilirubin Ql (U) Negative Negative [facility] Clarity (Unsp spec) Clear Clear [facility] Color (U) Yellow Yellow [facility] Epithelial cells LM.HPF (Urine sed) [#/Area] Few [facility] Glucose Test strip (U) [Mass/Vol] Negative Trace, Negative [facility] Hemoglobin Ql (U) Negative Negative, Trace [facility] Ketones Ql (U) Negative Trace, Negative [facility] Leukocyte esterase Test strip Ql (U) 25 Angie/mL Negative, 25 Angie/mL [facility] Nitrite Ql (U) Negative Negative [facility] pH (U) 6.5 [pH] 5.0 - 8.0 [facility] Protein (U) [Mass/Vol] Trace Trace, Negative [facility] RBC LM.HPF (Urine sed) [#/Area] 0-3 /HPF 0-3 /HPF [facility] Specific gravity (U) [Rel density] 1.027 1.005 - 1.030 [facility] Urobilinogen Ql (U) Negative Negative [facility] WBC LM.HPF (Urine sed) [#/Area] 0-5 /HPF 0-5 /HPF [facility] Semen Analysis Post Vason SEMEN POST VAS ABSENT Normal [facility] Comment on above: Result Comment: CYTO SPIN PREPARATION USED FOR CONCENTRATIONOF SPECIMEN PRIOR TO STAINING AND EXAMINATIONSperms are absent.Acute inflammation.Roberto Villarreal M.D. 11/09/17 AMENDED REPORT 11/09/17 1434 SEMEN POST VAS previously reported as: ABSENTCYTOSPIN PREPARATION USED FOR CONCENTRATIONOF SPECIMEN PRIOR TO STAINING AND EXAMINATION Performed By: #### L 200.1000 ####[facility] [id number] [place], [place], [id number] Surgery Visit Reporton 09-27 Surgery Visit Report [facility] [address] [place] [address] [place] [address] [phone] VISITDate of Service: 09/27/17MR#: [id number] Acct: [id number]: ISRALE VILLAR Rep #: [id number]: 1975 Provider: Keon Sandra MDAge/Sex: 42/M [facility]: SignedIntakeIntakeVisit Reasons: F/U VASECTOMY 09/20/2017Interpreter Required: NoIs patient in pain?: NoAllergiesNo Known Allergies Allergy (Verified 09/27/17 09:00)MedicationsNK [NK] 09/27/17 [History Confirmed 09/27/17]PFSHMedical History Sterilization (Acute)Surgical History History of colonoscopy (Acute)History of inguinal hernia repair, bilateral (Acute)Family History Mother Colon cancerFather Cancerkidney and liverSocial HistorySmoking Status: Current every day smokeralcohol intake: neverHPIHPIHPI: ISRAEL VILLAR, is a 42 M who presents to the office today for surgical follow-up 1 weekstatus post bilateral partial vasectomy as a means of sterilization. The patient has some mildintermittent discomfort of the left scrotum. Otherwise he is doing wellExamGUOther: Bilateral scrotal incisions are clean and dry. Chromic sutures still present on theleft. I am not seeing any signs that would suggest infection.Assessment AND Plan1. Encounter for sterilization Z30.2PlanSutures removed from the left scrotum form today. He was given activity and wound careinstructions. He has been provided specimen containers. He is well aware that he has not yetcleared from utilizing other means of control. Further office surgical follow-up can joe needed. He is aware that 2 negative consecutive semen analysis is are required.He is additionally aware that he is not yet cleared him from utilizing other means of birthcontrolRobert Riley Sandra M.D., F.A.C.S.OrdersOrders:Plan DetailOther MedicationsDiscontinued:acetam inophen-codeine 300-30 mg Discontinued Reaso1 tab PO Q6H PRN pain Mari Fredy: Order CompletedCodingLevel of Care CodeGlobal Post OpDiagnosesEncounter for sterilization Z30. 0937 Date [facility] Signature: Date (if applicable)CC: Nestor Kaye, Normal [facility] Surgery Visit Reporton 09-20 Surgery Visit Report [facility] [address] [place] [address] [phone] VISITDate of Service: 09/20/17MR#: [id number] Acct: [id number]: ISRAEL VILLAR Rep #: [id number]: 1975 Provider: Keon Sandra MDAge/Sex: 42/M Location[facility] [place].WSAStatus: SignedIntakeIntakeVisit Reasons: vasectomyInterpreter Required: NoIs patient in pain?: NoAllergiesNo Known Allergies Allergy (Verified 09/20/17 15:52)Medicationsacetaminophen 300 mg-codeine 30 mg tablet 1 tab PO Q6H PRN #10 tab 09/19/17 [Rx Wozdskucz70/14/18]PFSHSurgical History History of colonoscopy (Acute)History of inguinal hernia repair, bilateral (Acute)Family History Mother Colon cancerFather Cancerkidney and liverSocial HistorySmoking Status: Current every day smokeralcohol intake: neverHPIHPIHPI: ISRAEL VILLAR, is a 42 M who presents to the office today for bilateral partial vasectomyas a means of sterilizationOffice ProceduresProcedure Time OutTime OutInformed consent given: YesConsent signed: YesTime out checklist: patient, procedure, site marked/identified, positioning of patient,supplies available, allergies confirmed, team agrees on procedureTime out staff in room: YesTime out verified: YesTime out date: 09/20/17Time out time: 15:40VasectomyTime OutConsent Signed: YesTime out performed: YesTime: 15:35Time out checklist: patient, procedure, site marked/identified, positioning of patient,supplies available, allergies confirmed, team agrees on procedureProcedure Performed ByProcedure performed by: rcebulVasectomyVasectomy: YesProvider DocumentationProvider Documentation: Bilateral partial vasectomyTime out and informed consent was obtained. The patient was taken to the procedure room andplaced supine on the table. Bilateral scrotal areas were clipper and Betadine prepped. 1%lidocaine mixed 50-50 with 0.5% Marcaine was utilized as a local anesthetic. Less than a totalof 10 cc was utilized. Bilateral scrotal incisions were created. Sharp and blunt dissection wasused to identify the vas deferens. A segment was cleared, the ends were crushed, and segmentswere excised. The ends were secured with 3-0 chromic inverted and resecured. The skin edgeswere approximated with simple sutures of 3-0 chromic. Topical antibiotic ointment and gauzeapplied. He was given activity and wound care instructions. The specimens are submitted informalin for analysis. He is scheduled to return to my office in 1 week's time. He has beenprovided analgesics as prescribed. He is well aware that he has not yet cleared from utilizingother means of control. He is aware that 2 negative consecutive semen counts will berequired prior to releasing him from utilizing other means of control. He is aware thatthis is his responsibility to complete. He has had an opportunity to ask and have questionsanswered.Blood loss minimal. Specimens segments of vas deferens. Complications none.Keon Sandra M.D., F.A.C.S.Assessment AND PlanProblems1. Sterilization Z30.2PlanSuccessful bilateral partial vasectomy as a means of sterilization. The patient has been givenactivity and wound care instructions. He is scheduled return to the office in 1 week's timefor routine follow-up. He is well aware that he is not yet cleared from utilizing other meansof control. He has been provided a prescription for Tylenol with codeine. The specimensare submitted in formalin for analysis.Keon Sandra M.D., F.A.C.S.OrdersOrders:Medicatio nsNew:CodingLevel of Care CodeNo ChargeDiagnosesSterilization Z30.2Additional CodesVasectomy (02361)09/20/17 1638 Date [facility] Signature: Date (if applicable)CC: DO Ernie Chin [facility] VAS DEFERENS (STERILIZATION) on 09-20-2017 VAS DEFERENS (STERILIZATION) Patient: ISRAEL VILLAR : 1975 (42/M) Acct Num: [id number] Phys: Keon Sandra MD Unit Num: [id number] Loc: [facility] Specimen: Received: 09/21/17854 Spec Type: VAS TISSUES TISSUES: A. Vas deferens, NOS B. Vas deferens, NOS GROSS DESCRIPTION A - Received is one container designated right vas deferens. The specimen consists of a cylindrical segment of pink-denise soft tissue. The fragment measures 1 cm in length and 0.1 cm in maximum diameter. Serial sections do not reveal gross lesions. The specimen is totally submitted in one cassette. The specimen will be sectioned at the time of embedding. B - Received is one container designated left vas deferens. The specimen consists of a cylindrical segment of pink-denise soft tissue. The fragment measures 1.2 cm in length and 0.1 cm in maximum diameter. Serial sections do not reveal gross lesions. The specimen is totally submitted in one cassette. The specimen will be sectioned at the time of embedding. / SJ:kathi 09/21/17 TC:4 CPT: 12896 x2 HEADER OPERATION: Bilateral partial vasectomy PRE-OP DIAGNOSIS: Sterilization TISSUE SUBMITTED: A Right vas deferens, B Left vas deferens MICROSCOPIC DESCRIPTION Slides are reviewed. MICROSCOPIC DIAGNOSIS A. Right vas deferens, partial vasectomy: Completely transected segment of vas deferens, no pathologic diagnosis. B. Left vas deferens, partial vasectomy: Completely transected segment of vas deferens, no pathologic diagnosis. SJ:kathi 09/24/17 Signed Roberto Villarreal 09/24/17 Normal [facility] Comment on above: Performed By: #### P VAS ####[facility] [id number] [place], [address] VAS DEFERENS (STERILIZATION) Patient: ISRAEL VILLAR : 1975 (42/M) Acct Num: [id number] Phys: Keon Sandra MD Unit Num: [id number] Loc: LABSPEC Specimen: Received: 09/21/17854 Spec Type: VAS TISSUES TISSUES: A. Vas deferens, NOS B. Vas deferens, NOS GROSS DESCRIPTION A - Received is one container designated right vas deferens. The specimen consists of a cylindrical segment of pink-denise soft tissue. The fragment measures 1 cm in length and 0.1 cm in maximum diameter. Serial sections do not reveal gross lesions. The specimen is totally submitted in one cassette. The specimen will be sectioned at the time of embedding. B - Received is one container designated left vas deferens. The specimen consists of a cylindrical segment of pink-denise soft tissue. The fragment measures 1.2 cm in length and 0.1 cm in maximum diameter. Serial sections do not reveal gross lesions. The specimen is totally submitted in one cassette. The specimen will be sectioned at the time of embedding. / GRABIEL:kathi 09/21/17 TC:4 CPT: 54868 x2 HEADER OPERATION: Bilateral partial vasectomy PRE-OP DIAGNOSIS: Sterilization TISSUE SUBMITTED: A Right vas deferens, B Left vas deferens MICROSCOPIC DESCRIPTION Slides are reviewed. MICROSCOPIC DIAGNOSIS A. Right vas deferens, partial vasectomy: Completely transected segment of vas deferens, no pathologic diagnosis. B. Left vas deferens, partial vasectomy: Completely transected segment of vas deferens, no pathologic diagnosis. GRABIEL:kathi 09/24/17 Signed Roberto Villarreal 09/24/17 Normal [facility] Comment on above: Performed By: #### P VAS ####[facility] [id number] [place], [address] Surgery Visit Reporton 08-01 Surgery Visit Report [facility] [address] [place] [address] [place] [address] [phone] VISITDate of Service: 08/01/17MR#: [id number] Acct: [id number]: ISRAEL VILLAR Rep #: [id number]: 1975 Provider: Keon Sandra MDAge/Sex: 42/M Location: [facility].WSAStatus: SignedIntakeVital Signs08/01/17 Height 5 ft 8 in08/01/17 Weight: 155 lb08/01/17 Body Mass Index (BMI) 23.6IntakeVisit Reasons: VASECTOMYIs patient in pain?: NoAllergiesNo Known Allergies Allergy (Verified 08/01/17 15:09)Medicationslorazepam 2 mg tablet 2 mg PO QDAY #1 tab 08/01/17 [Rx Confirmed 08/01/17]PFSHSurgical HistoryHistory of colonoscopy (Acute)History of inguinal hernia repair, bilateral (Acute)Family HistoryMother Colon cancerFather Cancerkidney and liverSocial HistorySmoking Status: Current every day smokeralcohol intake: neverHPIHPIHPI: ISRAEL VILLAR, is a 42 M who presents to the office today for consultation regardingbilateral partial vasectomy and as a means of sterilization. [facility] Ju[facility] and I will return a copy of my office note to Dr. Juárez.The patient states that he enjoys good health. He states that he is not on any chronicmedications other than Naprosyn. He is not allergic to any medications.ROSGeneralGeneral: No weight change, appetite, fatigue, colon cancer, breast cancer or weaknessHEENTHEENT: No difficulty swallowing, eye injury, eye surgery, swollen glands or hoarsenessEndoEndocrine: No thyroid disease, diabetes mellitus, thyroid cancer, Hair loss, heat intoleranceor cold intoleranceSkinSkin: Yes changing molesBreastBreast: No left breast lump, right breast lump, nipple discharge, breast pain, abnormalmammogram, abnormal US or breast enlargementMuscMusculoskeletal : Yes back problemsCardioCardiovascular: No murmur, pacemaker, heart disease, atrial fibrillation, high blood pressure,heart attack, heart stent, palpitations, shortness of breat with exertion or chest painPsychPsychiatric: Yes depression and anxietyRespRespiratory: No shortness of breath, No sleep apnea, No cough, No COPD, No asthma, Noemphysema, No wheezingGastroGastrointestinal : No abdominal pain, No nausea or vomiting, No diarrhea, No constipation, Noblood in stool, No acid reflux, No hemorrhoids, No ulcers, No gallbladder problem, [place]ack,tarry stoolsHemaHematologic: No blood thinners, No blood disorders, No bleeding, No anemia, No blood clotsNeuroNeurologic: No system reviewed and no additional complaints, except as docu, No as per HPI, Noabnormal walking, No abnormal hearing, No abnormal movements, No abnormal speech, No behavioralchanges, No burning sensations, No confusion, No seizure-like activity, No unsteadiness, Nodizziness, No localized weakness, No frequent falls, No headache(s), No lack of coordination,No loss of vision, No memory loss, No numbness, No other visual disturbances, No radiatingpain, No restless legs, No sensory deficit, No fainting, No tingling, No tremor(s), Noweakness, No otherExamChestBreast Palpation: No nipple dischargeCardioHeart Sounds: no murmursGUTestes: normalOther: Evidence of bilateral inguinal hernia repairs with oblique incisions bilateral groins.No testicular masses. No inguinal defects. Vas deferens are nicely palpableAssessment AND Plan1. Encounter for sterilization [id number] gentleman who presents to discuss sterilization in the form of bilateral partialvasectomy. We have because the technique, benefits, risks, alternatives. No guarantees ofsuccess have been offered. He is aware that this is an office based procedure. He has beenprovided with lorazepam to be taken preprocedure. He is fully aware that he is not permittedto drive after taking that medication. He is aware that I consider this to be a permanentprocedure. He is aware that semen analysis will be required post procedure. He is aware that2 negative consecutive semen counts will be required prior to his being released from utilizingother means of control. He has had an opportunity to ask and have questions answered.We will schedule and proceed at his discretion.I appreciate the very kind opportunity of assisting with his surgical careCc: Dr. Myranda Sandra M.D., F.A.C.S.MedicationsNew:lorazep am (Ativan) take 1 tablet 45 minutes prior to your proce2 mg PO QDAY vasectomydureCodingLevel of Care Codediane Merida,level 1DiagnosesEncounter for sterilization Z30. 1525 Date Keon Sandra [facility] Signature: Date (if applicable)CC: Nestor Juárez DO Normal [facility] Vital Signs Date Time Vital Sign Value Performing Clinician Terryi sabas 03-18-2025 12:51-0400 Body height 168 cm Linda Bárbara 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 Work Phone: [facility] 03-18-2025 12:51-0400 Body mass index (BMI) [Ratio] 26.55 kg/m2 Linda Bárbara 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 Work Phone: [facility] 03-18-2025 12:51-0400 Body temperature 98.01 [degF] Linda Bárbara [employer]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 Work Phone: [facility] 03-18-2025 12:51-0400 Body weight 74.93 kg Linda Bárbara [employer]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 Work Phone: [facility] 03-18-2025 12:51-0400 Diastolic blood pressure 69 mm[Hg] Linda Bárbara [employer]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 Work Phone: [facility] 03-18-2025 12:51-0400 Heart rate 58 /min Linda Bárbara [employer]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 Work Phone: [facility] 03-18-2025 12:51-0400 SaO2% (BldA) [Mass fraction] 99 % Linad Bárbara [employer]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 Work Phone: [facility] 03-18-2025 12:51-0400 Systolic blood pressure 108 mm[Hg] Linda Bárbara 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 Work Phone: [facility] 03-26-2024 14:07-0400 Body height 168 cm Nestor Juárez DO Work Phone: [facility] 03-26-2024 14:07-0400 Body mass index (BMI) [Ratio] 26.15 kg/m2 Nestor Juárez DO Work Phone: [facility] 03-26-2024 14:07-0400 Body temperature 97.81 [degF] Nestor Juárez DO Work Phone: [facility] 03-26-2024 14:07-0400 Body weight 73.8 kg Nestor Juárez DO Work Phone: [facility] 03-26-2024 14:07-0400 Diastolic blood pressure 70 mm[Hg] Nestor Juárez DO Work Phone: [facility] 03-26-2024 14:07-0400 Heart rate 80 /min Nestor Juárez DO Work Phone: [facility] 03-26-2024 14:07-0400 Systolic blood pressure 100 mm[Hg] Nestor Juárez DO Work Phone: [facility] 01-23-2024 16:01-0400 Body mass index (BMI) [Ratio] 24.72 kg/m2 Margaret Todd [employer]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 Work Phone: [facility] 01-23-2024 16:01-0400 Body weight 73.12 kg Margaret Todd [employer]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 Work Phone: [facility] 01-23-2024 16:01-0400 Diastolic blood pressure 78 mm[Hg] Margaret Todd [employer]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 Work Phone: [facility] 01-23-2024 16:01-0400 Heart rate 66 /min Margaret Todd [employer]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 Work Phone: [facility] 01-23-2024 16:01-0400 Respiratory rate 16 /min Margaret Todd [employer]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 Work Phone: [facility] 01-23-2024 16:01-0400 SaO2% (BldA) [Mass fraction] 97 % Margaret Todd [employer]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 Work Phone: [facility] 01-23-2024 16:01-0400 Systolic blood pressure 100 mm[Hg] Margaret Todd DOG POUND ATTENDANT Work Phone: [facility] 06-18-2023 12:08-0500 Body height 172 cm Nestor Juárez DO Work Phone: [facility] 06-18-2023 12:08-0500 Body temperature 97 [degF] Nestor Juárez DO Work Phone: [facility] 06-18-2023 12:08-0500 Body weight 78.02 kg Nestor Juárez DO Work Phone: [facility] 06-18-2023 12:08-0500 Diastolic blood pressure 60 mm[Hg] Nestor Juárez DO Work Phone: [facility] 06-18-2023 12:08-0500 Heart rate 64 /min Nestor Juárez DO Work Phone: [facility] 06-18-2023 12:08-0500 Respiratory rate 16 /min Nestor Juárez DO Work Phone: [facility] 06-18-2023 12:08-0500 Systolic blood pressure 100 mm[Hg] Nestor Juárez DO Work Phone: [facility] 08-07-2022 10:28-0500 Body temperature 98.8 [degF] Nestor Juárez DO Work Phone: [facility] 08-07-2022 10:28-0500 Body weight 79.83 kg Nestor Juárez DO Work Phone: [facility] 08-07-2022 10:28-0500 Diastolic blood pressure 60 mm[Hg] Nestor Juárez DO Work Phone: [facility] 08-07-2022 10:28-0500 Heart rate 64 /min Nestor Juárez DO Work Phone: [facility] 08-07-2022 10:28-0500 Respiratory rate 16 /min Nestor Juárez DO Work Phone: [facility] 08-07-2022 10:28-0500 Systolic blood pressure 100 mm[Hg] Nestor Juárez DO Work Phone: [facility] 07-28-2022 07:26-0500 Body weight 79.92 kg Jey Kyle 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 Work Phone: [facility] 07-28-2022 07:26-0500 Diastolic blood pressure 82 mm[Hg] Jey Kyle [employer]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 Work Phone: [facility] 07-28-2022 07:26-0500 Heart rate 71 /min Jey Kyle 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 Work Phone: [facility] 07-28-2022 07:26-0500 Respiratory rate 16 /min Jey Kyle 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 Work Phone: [facility] 07-28-2022 07:26-0500 SaO2% (BldA) [Mass fraction] 95 % Jey Kyle 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 Work Phone: [facility] 07-28-2022 07:26-0500 Systolic blood pressure 124 mm[Hg] Jey Kyle 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 Work Phone: [facility] Encounters Encounter Date Encounter Type Care Provider Facility Start: 03-18-2025 End: 03-18-2025 Patient encounter procedure Linda Granger 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 Work Phone: General Surgery Comment on above: Screen for colon can cer (Primary Dx); History of colonic polyps; Family history of colon cancer in mother Start: 03-18-2025 End: 03-18-2025 ambulatory LINDA BÁRBARA Facility:[facility] Start: 03-17-2025 End: 03-17-2025 Telemedicine consultation with patient Jey Wright 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 Work Phone: [facility] [place] Start: 03-17-2025 End: 03-17-2025 ambulatory Jey Kyle 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 Work Phone: [facility] [place] Comment on above: Irritability (Primar y Dx); Depression with anxiety; Relationship problems Start: 03-05-2025 End: 03-05-2025 Refill Nestor L Juárez DO Work Phone: [facility] Comment on above: Refill Request Start: 03-04-2025 End: 03-04-2025 Refill Josefa Kwok [employer] SCHOOL TEACHERCarlosDOG POUND ATTENDANT Work Phone: [facility] [place] Comment on above: Refill Request Start: 01-29-2025 End: 01-30-2025 Refill Nestor L Juárez DO Work Phone: [facility] [place] Comment on above: Refill Request Start: 01-01-2025 End: 01-01-2025 Refill Nestor L Juárez DO Work Phone: [facility] Comment on above: Refill Request Start: 10-19-2024 End: 10-20-2024 Refill Nestor L Juárez DO Work Phone: [facility] [place] Comment on above: Refill Request Start: 10-08-2024 End: 10-08-2024 ambulatory Jeremias Etienne MD Work Phone: [facility] [place] Comment on above: Acute low back pain without sciatica, unspecified back pain laterality (Primary Dx); Weakness of both lower extremities Start: 10-08-2024 End: 10-08-2024 Telemedicine consultation with patient Jeremias Etienne MD Work Phone: [facility] [place] Start: 08-08-2024 End: 08-08-2024 ambulatory Nestor L Juárez DO Work Phone: [facility] [place] Comment on above: Unable to renew sild enafil 100 mg tablet Refill Request Start: 06-30-2024 End: 06-30-2024 Refill Nestor L Juárez DO Work Phone: [facility] [place] Comment on above: Refill Request Start: 06-29-2024 End: 06-30-2024 ambulatory Nestor L Juárez DO Work Phone: [facility] [place] Comment on above: Unable to renew medi cation Start: 05-29-2024 End: 05-30-2024 Refill Nestor Juárez DO Work Phone: [facility] [place] Comment on above: Refill Request Start: 04-14-2024 End: 04-14-2024 ambulatory MARGARET TODD Facility:[facility] Start: 03-26-2024 End: 03-26-2024 ambulatory NESTOR JUÁREZ Facility:[facility] Start: 03-26-2024 End: 03-26-2024 Patient encounter procedure Nestor Juárez DO Work Phone: [facility] [place] Comment on above: Well adult exam (Annel lola Dx); Common wart; Dyslipidemia Start: 03-26-2024 End: 03-26-2024 Patient encounter status Nestor Juárez DO Work Phone: [facility] Work Phone: Start: 03-24-2024 End: 03-26-2024 Refill Nestor Juárez DO Work Phone: [facility] [place] Comment on above: Refill Request Start: 01-23-2024 End: 01-23-2024 Patient encounter procedure Margaret Todd APRN.DOG POUND ATTENDANT Work Phone: [facility] [place] Comment on above: Seborrheic keratoses (Primary Dx); Screening for prostate cancer; Dyslipidemia; Well adult exam; Fatigue, unspecified type Start: 01-23-2024 End: 01-23-2024 Patient encounter status Margaret Perez LEDESMA.DOG POUND ATTENDANT Work Phone: [facility] Start: 01-21-2024 ambulatory Nestor avitia DO Work Phone: [facility] [place] Start: 01-21-2024 Patient encounter procedure Nestor Juárez DO Work Phone: [facility] [place] Comment on above: Appointment? Start: 01-16-2024 Refill Nestor Whalen son DO Work Phone: [facility] [place] Comment on above: Refill Request Start: 11-20-2023 Refill Nestor avitia DO Work Phone: [facility] [place] Comment on above: Refill Request Start: 10-31-2023 Refill Nestor avitia DO Work Phone: [facility] [place] Comment on above: Refill Request Start: 08-23-2023 Refill Margaret Todd [employer]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 Work Phone: [facility] [place] Comment on above: Refill Request Start: 06-18-2023 End: 06-18-2023 Patient encounter procedure Nestor Juárez DO Work Phone: [facility] [place] Comment on above: Well adult exam (Annel lola Dx); Neck pain; Fatigue, unspecified type; Screening for prostate cancer; Incomplete emptying of bladder; Actinic keratosis; Seborrheic keratoses Start: 06-18-2023 End: 06-18-2023 Patient encounter status Nestor Juárez DO Work Phone: [facility] Work Phone: Start: 05-03-2023 Refill Margaret Todd [employer]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 Work Phone: [facility] [place] Comment on above: Refill Request Start: 04-30-2023 Refill Margaret Todd [employer]ATIONAL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 Work Phone: [facility] [place] Comment on above: Refill Request Start: 03-04-2023 Refill Nestor avitia DO Work Phone: [facility] [place] Comment on above: Refill Request Start: 08-31-2022 Refill Josefa Kwok [employer]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 Work Phone: [facility] [place] Comment on above: Refill Request Start: 08-09-2022 End: 08-09-2022 Subsequent hospital visit by physician Rebecca [facility] [place] Work Phone: Radiology Comment on above: Right hip pain [M25. 551] Elevated LFTs [R79.8 9] Start: 08-07-2022 End: 08-07-2022 Patient encounter procedure Nestor Juárez DO Work Phone: [facility] [place] Comment on above: Right hip pain (Prim nella Dx); Acute right-sided low back pain with right-sided sciatica; Elevated LFTs; RUQ abdominal pain Start: 08-01-2022 Refill Margaretpatricia Todd VOCATIONAL SCHOOL TEACHER.[facility] Work Phone: [facility] [place] Comment on above: Refill Request Urinalysis Start: 07-28-2022 End: 07-28-2022 Patient encounter procedure Jey Wright [employer]ATIONAL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 Work Phone: [facility] [place] Comment on above: Acute midline low ba ck pain with right-sided sciatica (Primary Dx) Start: 04-24-2022 Refill Nestor avitia DO Work Phone: [facility] [place] Comment on above: Refill Request (Lopez sfer meds [facility] to [facility]) Start: 04-23-2022 ambulatory Nestor avitia DO Work Phone: [facility] [place] Comment on above: Perscribtions Start: 04-19-2022 Refill Nestor avitia DO Work Phone: [facility] Comment on above: Refill Request Start: 02-09-2022 Refill Margaret Zurawic k [employer]ATIONAL SCHOOL TEACHER.[facility] Work Phone: [facility] Comment on above: Refill Request Start: 12-07-2021 Refill Margaret Zurawic k V[employer] S[employer]OL TEACHER.[facility] Work Phone: [facility] [place] Comment on above: Refill Request Start: 10-25-2021 Refill Margaret Zurawic k V[employer] S[employer]OL TEACHER.[facility] Work Phone: [facility] [place] Comment on above: Refill Request Start: 09-10-2021 Telephone encounter Nestor chavez DO Work Phone: [facility] Comment on above: Results Start: 03-09-2021 Patient encounter status Joaquim Juárez DO Work Phone: [facility] Work Phone: Start: 03-09-2021 Encounter for prema l adult medical examination without abnormal findings NESTOR JUÁREZ [facility] Start: 11-09-2017 Ambulatory Keon Cebul Facility:[facility] Start: 09-27-2017 End: 09-27-2017 Ambulatory Keon Cebul Facility:[facility] Start: 09-20-2017 End: 09-20-2017 Ambulatory Keon Cebul Facility:[facility] Start: 09-20-2017 Ambulatory Keon Cebul Facility:[facility] Start: 08-01-2017 End: 08-01-2017 Ambulatory Keon Cebul Facility:[facility] Procedures Date Procedure Procedure Detail Performing Clinician Start: 04-14-2024 Lipid 1996 panel - S guillermina or Plasma Nestor Juárez DO Work Phone: Start: 06-26-2023 Lipid 1996 panel - S guillermina or Plasma Margaret Todd [employer]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 Work Phone: Start: 08-09-2022 End: 08-09-2022 Us abdominal real time w/image limited Nestor Hurtado Juárez DO Work Phone: Start: 08-09-2022 Radex hip unilateral with pelvis 2-3 views Nestor Hurtado Juárez DO Work Phone: Start: 03-23-2022 Lipid 1996 panel - S guillermina or Plasma Margaret Todd [employer]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 Work Phone: Start: 03-08-2021 Adult depression scr eening assessment Nestor Juárez DO Work Phone: Start: 02-16-2020 Colonoscopy Nestor Gar rison DO Work Phone: Plan of Treatment Date Care Activity Detail Author Start: 04-13-2031 Urine microalbumin profile [facility] Start: 04-14-2029 Lipid panel Lipid Screening [facility] Start: 06-26-2028 Lipid panel Lipid Screening [facility] Start: 04-14-2027 Diabetes Screening Diabetes Screenin [facility] Start: 03-23-2027 Lipid 1996 panel - S guillermina or Plasma Lipid Screening [facility] Start: 03-23-2027 LIPID SCREEN LIPID SCREEN [facility] Start: 09-02-2026 LIPID SCREEN LIPID SCREEN [facility] Start: 06-26-2026 Diabetes Screening Diabetes Screenin g [facility] Start: 04-05-2025 DIABETES SCREEN DIABETES SCREEN [facility] Start: 04-05-2025 Diabetes Screening Diabetes Screenin g [facility] Start: 04-01-2025 End: 04-01-2025 Patient encounter procedure 04/01/2025 7:30 AM EDT Appointment Ambulatory Surgery [address] [place] [address] Niru Washington, DO [address] [place] [address] Screen for colon cancer [Z12.11]; History of colonic polyps [Z86.0100]; Family history of colon cancer in mother [Z80.0] Ambulatory Surgery Comment on above: Screen for colon can cer [Z12.11]; History of colonic polyps [Z86.0100]; Family history of colon cancer in mother [Z80.0] Start: 03-09-2025 Influenza vaccination [facility] Start: 02-15-2025 Colonoscopy COLONOSCOPY [facility] Start: 02-15-2025 COLORECTAL CANCER SCREENING COLORECTAL CANCER SCREENING [facility] Start: 02-15-2025 Screening for malign ant neoplasm of colon [facility] Start: 2025 Pneumococcal Vaccine : 50+ (1 of 1 - PCV) Pneumococcal Vaccine: 50+ (1 of 1 - PCV) [facility] Start: 2025 Shingrix Vaccine (1 of 2) Barajas grix Vaccine (1 of 2) [facility] Start: 09-02-2024 DIABETES SCREEN DIABETES SCREEN [facility] Start: 06-18-2024 Covid-19 Vaccine (#1) Covid-19 Vacci ne (#1) [facility] Comment on above: Postponed from 07/16 (Declined at this time) Start: 06-18-2024 Covid-19 Vaccine () Covid-19 Vaccine () [facility] Comment on above: Postponed from 03/09 (Declined at this time) Start: 04-24-2024 End: 07-24-2024 25-hydroxyvitamin D3 [Mass/volume] in Serum or Plasma VITAMIN D 25 HYDROXY Lab Routine Fatigue, unspecified type Expected: 04/24/2024, Expires: 07/24/2024 [facility] Comment on above: Expected: 04/24/2024 , Expires: 07/24/2024 Start: 04-24-2024 End: 07-24-2024 CBC W Auto Differential panel - Blood COMPLETE BLOOD COUNT AND DIFFERENTIAL Lab Routine Well adult exam Expected: 04/24/2024, Expires: 07/24/2024 [facility] Comment on above: Expected: 04/24/2024 , Expires: 07/24/2024 Start: 04-24-2024 End: 07-24-2024 Cobalamin (Vitamin B12) [Mass/volume] in Serum or Plasma VITAMIN B12 Lab Routine Fatigue, unspecified type Expected: 04/24/2024, Expires: 07/24/2024 [facility] Comment on above: Expected: 04/24/2024 , Expires: 07/24/2024 Start: 04-24-2024 End: 07-24-2024 Comprehensive metabolic 2000 panel - Serum or Plasma COMPREHENSIVE METABOLIC PANEL Lab Routine Well adult exam Expected: 04/24/2024, Expires: 07/24/2024 [facility] Comment on above: Expected: 04/24/2024 , Expires: 07/24/2024 Start: 04-24-2024 End: 07-24-2024 Lipid 1996 panel - Serum or Plasma LIPID PANEL BASIC Lab Routine Dyslipidemia Expected: 04/24/2024, Expires: 07/24/2024 [facility] Work Phone: Comment on above: Expected: 04/24/2024 , Expires: 07/24/2024 Start: 04-24-2024 End: 07-24-2024 PSA/PROSTATE SPECIFIC ANTIGEN SCREENING PSA/PROSTATE SPECIFIC ANTIGEN SCREENING Lab Routine Screening for prostate cancer Expected: 04/24/2024, Expires: 07/24/2024 [facility] Comment on above: Expected: 04/24/2024 , Expires: 07/24/2024 Start: 04-24-2024 End: 07-24-2024 TESTOSTERONE, FREE AND TOTAL TESTOSTERONE, FREE AND TOTAL Lab Routine Fatigue, unspecified type Expected: 04/24/2024, Expires: 07/24/2024 [facility] Comment on above: Expected: 04/24/2024 , Expires: 07/24/2024 Start: 04-24-2024 End: 07-24-2024 Thyrotropin [Units/volume] in Serum or Plasma THYROID STIMULATING HORMONE Lab Routine Fatigue, unspecified type Expected: 04/24/2024, Expires: 07/24/2024 [facility] Comment on above: Expected: 04/24/2024 , Expires: 07/24/2024 Start: 03-26-2024 End: 06-25-2024 Hemoglobin A1c in Blood HEMOGLOBIN A1C Lab Routine Well adult exam Expected: 03/26/2024, Expires: 06/25/2024 [facility] Work Phone: Comment on above: Expected: 03/26/2024 , Expires: 06/25/2024 Start: 03-26-2024 End: 06-25-2024 Magnesium [Mass/volume] in Serum or Plasma MAGNESIUM Lab Routine Well adult exam Expected: 03/26/2024, Expires: 06/25/2024 [facility] Comment on above: Expected: 03/26/2024 , Expires: 06/25/2024 Start: 03-09-2024 Covid-19 Vaccine ( season) Covid-19 Vaccine ( season) [facility] Start: 03-09-2024 Covid-19 Vaccine ( season) Covid-19 Vaccine ( season) [facility] Start: 03-09-2024 Influenza vaccination [facility] Start: 01-23-2024 End: 01-23-2024 Patient encounter procedure 01/23/2024 7:00 PM EDT Office Visit Family Carissa Garcia [address] [place] [address] Abebe Ledezma MD [address] [place], [place] [id number] Spots on arms/hands [facility] [place] Comment on above: Spots on arms/hands Start: 01-06-2024 Influenza vaccination Influenza Vacc ine (#1) [facility] Comment on above: Postponed from 03/09 (Declined at this time) Start: 07-09-2023 Behavioral Health Screening Behavioral Health Screening [facility] Start: 07-09-2023 Depression Assessment Depression Ass essment [facility] Start: 06-18-2023 End: 09-17-2023 25-hydroxyvitamin D3 [Mass/volume] in Serum or Plasma VITAMIN D 25 HYDROXY Lab Routine Well adult exam Fatigue, unspecified type Expected: 06/18/2023, Expires: 09/17/2023 [facility] Work Phone: Comment on above: Expected: 06/18/2023 , Expires: 09/17/2023 Start: 06-18-2023 End: 09-17-2023 C reactive protein [Mass/volume] in Serum or Plasma C-REACTIVE PROTEIN (CRP) Lab Routine Neck pain Expected: 06/18/2023, Expires: 09/17/2023 [facility] Work Phone: Comment on above: Expected: 06/18/2023 , Expires: 09/17/2023 Start: 06-18-2023 End: 09-17-2023 CBC W Auto Differential panel - Blood CBC + DIFF Lab Routine Well adult exam Fatigue, unspecified type Expected: 06/18/2023, Expires: 09/17/2023 [facility] Work Phone: Comment on above: Expected: 06/18/2023 , Expires: 09/17/2023 Start: 06-18-2023 End: 09-17-2023 Cobalamin (Vitamin B12) [Mass/volume] in Serum or Plasma VITAMIN B12 BLOOD Lab Routine Well adult exam Fatigue, unspecified type Expected: 06/18/2023, Expires: 09/17/2023 [facility] Work Phone: Comment on above: Expected: 06/18/2023 , Expires: 09/17/2023 Start: 06-18-2023 End: 09-17-2023 Comprehensive metabolic 2000 panel - Serum or Plasma COMP METABOLIC PANEL Lab Routine Well adult exam Fatigue, unspecified type Expected: 06/18/2023, Expires: 09/17/2023 [facility] Work Phone: Comment on above: Expected: 06/18/2023 , Expires: 09/17/2023 Start: 06-18-2023 End: 09-17-2023 Hemoglobin A1c in Blood HGB A1C Lab Routine Well adult exam Expected: 06/18/2023, Expires: 09/17/2023 [facility] Work Phone: Comment on above: Expected: 06/18/2023 , Expires: 09/17/2023 Start: 06-18-2023 End: 09-17-2023 Lipid 1996 panel - Serum or Plasma LIPID PANEL BASIC Lab Routine Well adult exam Expected: 06/18/2023, Expires: 09/17/2023 [facility] Work Phone: Comment on above: Expected: 06/18/2023 , Expires: 09/17/2023 Start: 06-18-2023 End: 09-17-2023 PSA/PROSTSPECAG SCRN PSA/PROSTSPECAG SCRN Lab Routine Screening for prostate cancer Incomplete emptying of bladder Expected: 06/18/2023, Expires: 09/17/2023 [facility] Work Phone: Comment on above: Expected: 06/18/2023 , Expires: 09/17/2023 Start: 06-18-2023 End: 09-17-2023 TESTOSTERONE, FREE AND TOTAL TESTOSTERONE, FREE AND TOTAL Lab Routine Well adult exam Fatigue, unspecified type Expected: 06/18/2023, Expires: 09/17/2023 [facility] Work Phone: Comment on above: Expected: 06/18/2023 , Expires: 09/17/2023 Start: 06-18-2023 End: 09-17-2023 Thyrotropin [Units/volume] in Serum or Plasma TSH BLD Lab Routine Well adult exam Fatigue, unspecified type Expected: 06/18/2023, Expires: 09/17/2023 [facility] Work Phone: Comment on above: Expected: 06/18/2023 , Expires: 09/17/2023 Start: 06-18-2023 End: 09-17-2023 Thyroxine (T4) free [Mass/volume] in Serum or Plasma T4 FREE/FREE THYROX Lab Routine Well adult exam Fatigue, unspecified type Expected: 06/18/2023, Expires: 09/17/2023 [facility] Work Phone: Comment on above: Expected: 06/18/2023 , Expires: 09/17/2023 Start: 06-18-2023 End: 09-17-2023 Triiodothyronine (T3) Free [Mass/volume] in Serum or Plasma T3 FREE BLD Lab Routine Well adult exam Fatigue, unspecified type Expected: 06/18/2023, Expires: 09/17/2023 [facility] Work Phone: Comment on above: Expected: 06/18/2023 , Expires: 09/17/2023 Start: 06-18-2023 End: 09-17-2023 Urinalysis complete panel - Urine URINALYSIS, WITH MICROSCOPIC Lab Routine Incomplete emptying of bladder Expected: 06/18/2023, Expires: 09/17/2023 [facility] Work Phone: Comment on above: Expected: 06/18/2023 , Expires: 09/17/2023 Start: 03-28-2023 COVID-19 VACCINE (#1) COVID-19 VACCI NE (#1) [facility] Comment on above: Postponed from 07/16 (Declined at this time) Start: 03-09-2023 Influenza vaccination [facility] Start: 01-05-2023 Influenza vaccination INFLUENZA (#1) [facility] Comment on above: Postponed from 03/09 (Declined at this time) Start: 08-02-2022 End: 10-02-2022 Bacteria identified in Urine by Culture URINE CULTURE Microbiology Routine ED (erectile dysfunction) of organic origin Expected: 08/02/2022, Expires: 10/02/2022 [facility] Work Phone: Comment on above: Expected: 08/02/2022 , Expires: 10/02/2022 Start: 08-02-2022 End: 10-02-2022 Urinalysis complete panel - Urine URINALYSIS, WITH MICROSCOPIC Lab Routine ED (erectile dysfunction) of organic origin Expected: 08/02/2022, Expires: 10/02/2022 [facility] Work Phone: Comment on above: Expected: 08/02/2022 , Expires: 10/02/2022 Start: 07-09-2022 [facility]MENT [facility] Start: 03-09-2022 Influenza vaccination [facility] Start: 03-08-2022 Adult depression scr eening assessment DEPRESSION SCREENING [facility] Start: 07-09-2021 DEPRESSION ASSESSMENT [facility] Start: 01-14-2020 COLOGUARD (FIT-DNA) COLOGUARD (FIT-D NA) [facility] Start: 01-14-[address] COLONOGRAPHY [facility] Start: 01-14-2020 FECAL OCCULT BLOOD FECAL OCCULT BLOO D [facility] Start: 01-14-2020 Screening for malign ant neoplasm of colon [facility] Start: 01-14-2020 SIGMOIDOSCOPY SIGMOIDOSCOPY [facility] Start: 1994 Hepatitis B Vaccine (1 of 3 - 19+ 3-dose series) Hepatitis B Vaccine (1 of 3 - 19+ 3-dose series) [facility] Start: 1993 Anxiety Screening Anxiety Screening [facility] Start: 1993 Depression Screening Depression Scre ening [facility] Start: 1993 HIV SCREENING HIV SCREENING [facility] Start: 1993 HIV screening HIV Screening [facility] Start: 01-14-1980 COVID-19 VACCINE (#1) COVID-19 VACCI NE (#1) [facility] Start: 01-14-1980 COVID-19 VACCINE (1) COVID-19 VACCIN E (1) [facility] Start: 1975 COVID-19 VACCINE (#1) COVID-19 VACCI NE (#1) [facility] Start: 1975 HEPATITIS B (1 of 3 - 3-dose series) HEPATITIS B (1 of 3 - 3-dose series) [facility] Start: 1975 Hepatitis B Vaccine (1 of 3 - 3-dose series) Hepatitis B Vaccine (1 of 3 - 3-dose series) [facility] End: 07-17-2024 Radex spine cervical 4 or 5 views XR CERV OTHER 4V AP/LAT/OBL Radiology Routine Neck pain 1 Occurrences starting 06/18/2023 until 07/17/2024 [facility] Work Phone: Comment on above: 1 Occurrences starti ng 06/18/2023 until 07/17/2024 End: 09-06-2023 Radex spine lumbosacral 2/3 views XR LUMBAR GENERAL 3V AP/LAT/L5-S1 Radiology Routine Right hip pain Acute right-sided low back pain with right-sided sciatica 1 Occurrences starting 08/07/2022 until 09/06/2023 [facility] Work Phone: Comment on above: 1 Occurrences starti ng 08/07/2022 until 09/06/2023 End: 03-18-2026 Screening colonoscopy COLONOSCOPY SCREENING Endoscopy Routine Screen for colon cancer History of colonic polyps Family history of colon cancer in mother 1 Occurrences starting 03/18/2025 until 03/18/2026 [facility] Work Phone: Comment on above: 1 Occurrences starti ng 03/18/2025 until 03/18/2026 End: 09-06-2023 Us abdominal real time w/image limited US ABD RT UPPER QUADRANT Radiology Routine Elevated LFTs RUQ abdominal pain 1 Occurrences starting 08/07/2022 until 09/06/2023 [facility] Work Phone: Comment on above: 1 Occurrences starti ng 08/07/2022 until 09/06/2023 End: 09-06-2023 XR HIP GENERAL 3V PELV/AP/LAT RIGHT XR HIP GENERAL 3V PELV/AP/LAT RIGHT Radiology Routine Right hip pain Acute right-sided low back pain with right-sided sciatica 1 Occurrences starting 08/07/2022 until 09/06/2023 [facility] Work Phone: Comment on above: 1 Occurrences starti ng 08/07/2022 until 09/06/2023 [facility] Immunizations Immunization Date Immunization Notes Care Provider Jerrod zabala 04-13-2021 tetanus toxoid, redu tea diphtheria toxoid, and acellular pertussis vaccine, adsorbed Nestor Juárez DO Work Phone: [facility] Work Phone: 04-12-2018 influenza virus vaccine, unspecified formulation Margaret Todd APRN.[employer] ATTEND[employer] Work Phone: [facility] Payers Date Payer Category Payer Medicaid [id number] 2017 Unknown [id number] 2009 Medicaid [employer] [id number] 2009-Present [phone] [address] [place] [address] Medicaid [id number] 2009 Medicaid [id number] Social History Date Type Detail Facility Start: 07-25-2011 End: 07-28-2022 Tobacco smoking status NHIS Never smoked tobacco [facility] Work Phone: Start: 07-25-2011 End: 07-28-2022 Tobacco use and exposure Smokeless tobacco non-user [facility] Work Phone: Start: 03-08-2021 End: 03-18-2025 Alcohol intake Current non-drinker of alcohol (finding) [facility] Start: 1975 Sex Assigned At Not on file [facility] Start: 03-26-2022 End: 04-05-2022 Exposure to SARS-CoV-2 (event) Not sure [facility] Start: 07-28-2022 End: 05-23-2023 History of Social function [facility] Work Phone: Start: 07-28-2022 End: 05-23-2023 Tobacco use panel [facility] Work Phone: Start: 06-09-2012 Adult Depression Scr eening Assessment 0 [facility] Work Phone: Do you belong to any clubs or organizations such as holiness groups, unions, fraternal or athletic groups, or school groups? No [facility] Are you now , , , , never or living with a partner? [facility] Do you feel stress - tense, restless, nervous, or anxious, or unable to sleep at night because your mind is troubled all the time - these days [OSQ] Only a little [facility] Functional Status Date Assessment Result Facility 02-10-2014 Are you deaf, or do you have serious difficulty hearing No 02/10/2014 8:00 AM EDT Jayde Crowe LPN No [facility] 02-10-2014 Are you blind, or do you have serious difficulty seeing, even when wearing glasses No 02/10/2014 8:00 AM EDT Jayde Crowe LPN No [facility] 02-10-2014 Do you have serious difficulty walking or climbing stairs No 02/10/2014 8:00 AM EDT Jayde Crowe LPN No [facility] 02-10-2014 Do you have difficul ty dressing or bathing No 02/10/2014 8:00 AM EDT Jayde Crowe LPN No [facility] 02-10-2014 Because of a physica l, mental, or emotional condition, do you have difficulty doing errands alone such as visiting a physician's office or shopping No 02/10/2014 8:00 AM EDT Jayde Crowe LPN No [facility] Mental Status Date Assessment Result Facility 02-10-2014 Because of a physica l, mental, or emotional condition, do you have serious difficulty concentrating, remembering, or making decisions No 02/10/2014 8:00 AM EDT Jayde Crowe LPN No [facility] Clinical Notes 07-22-2020 to 03-18-2025 Jey Wright APRN.NEDRA - 03/18/2025 2:37 PM Linda Reza APRN.NEDRA - 03/18/2025 1:00 PM EDTTelephone Encounter - Christina Perdue LPN - 03/05/2025 10:19 AM EDTPatient Instructions Note Date & Type Note Facility 03-18-2025 Note HNO ID: [id number] Author: JEY WRIGHT APRN.NEDRA Service: ? Author Type: Nurse Practitioner Type: Progress Notes Filed: 03/18/2025 14:42 Note Text: I have communicated my name and active licensure. The patient's identity and physical location were verified at the time of this visit. Either the patient or their legal counter sales representative has been informed of the risks and benefits of -- and alternatives to -- treatment through a remote evaluation and consents to proceed with the evaluation remotely. Subjective The patient is a 50-year-old male presenting for evaluation of depressive and anxiety symptoms. Depression and Anxiety: - Israel Villar is struggling with moving on from 's infidelity 5 years ago. - Previously attended therapy for a year with his ; no longer in counseling. - Reports functioning well at work and being present for family, but experiences ongoing emotional struggle. - Expresses lack of confidence and trust in returning to counseling. - Previously prescribed Zoloft but did not take it. - Reports some anxiety symptoms. - Previously experienced outbursts of anger, now improved. - has difficulty with complete accountability. - Concerned about the impact of marital issues on children. - Recently stopped taking Ashwagandha and Dojia. - Interested in trying medication to help with mood stabilization. Objective There were no vitals taken for this visit. Pleasant, cooperative, denies SI 1. Irritability (R45.4) 2. Depression with anxiety (F41.8) 3. Relationship problems (Z63.9) - Chronic relationship stress due to mutual infidelity and difficulty moving past spouse's infidelity; previously attended couples therapy for one year with temporary improvement. - Ongoing depressive symptoms, anxiety, and irritability; no current outbursts. - Start Cymbalta at lowest dose, once daily; discussed as preferable to Zoloft for combined depression, anxiety, and irritability. - Advised patient to take medication at the same time each day. - Discussed that medication may help stabilize mood but will not resolve underlying relationship issues. - Encouraged individual counseling as an adjunct to medication, though patient expressed concerns about impact on spouse. - Follow-up in 6 weeks to assess response to medication. Visit was conducted via [employer] Patient Location: Patient Home or Place of Residence [facility] 03-18-2025 History of Present illness Narrative I have communicated my name and active licensure. The patient's identity and physical location were verified at the time of this visit. Either the patient or their legal counter sales representative has been informed of the risks and benefits of -- and alternatives to -- treatment through a remote evaluation and consents to proceed with the evaluation remotely. Subjective The patient is a 50-year-old male presenting for evaluation of depressive and anxiety symptoms. Depression and Anxiety: - Israel Villar is struggling with moving on from 's infidelity 5 years ago. - Previously attended therapy for a year with his ; no longer in counseling. - Reports functioning well at work and being present for family, but experiences ongoing emotional struggle. - Expresses lack of confidence and trust in returning to counseling. - Previously prescribed Zoloft but did not take it. - Reports some anxiety symptoms. - Previously experienced outbursts of anger, now improved. - has difficulty with complete accountability. - Concerned about the impact of marital issues on children. - Recently stopped taking Ashwagandha and Dojia. - Interested in trying medication to help with mood stabilization. Objective There were no vitals taken for this visit. Pleasant, cooperative, denies SI 1. Irritability (R45.4) 2. Depression with anxiety (F41.8) 3. Relationship problems (Z63.9) - Chronic relationship stress due to mutual infidelity and difficulty moving past spouse's infidelity; previously attended couples therapy for one year with temporary improvement. - Ongoing depressive symptoms, anxiety, and irritability; no current outbursts. - Start Cymbalta at lowest dose, once daily; discussed as preferable to Zoloft for combined depression, anxiety, and irritability. - Advised patient to take medication at the same time each day. - Discussed that medication may help stabilize mood but will not resolve underlying relationship issues. - Encouraged individual counseling as an adjunct to medication, though patient expressed concerns about impact on spouse. - Follow-up in 6 weeks to assess response to medication. Visit was conducted via [facility] Patient Location: Patient Home or Place of Residence documented in this encounter [facility] 03-18-2025 History of Present illness Narrative HISTORY AND PHYSICAL Israel Villar : 1975 REFERRING PHYSICIAN: No referring provider defined for this encounter. CHIEF COMPLAINT: Patient presents with: Consult HPI: Israel is a 50 year old male referred for endoscopy. Israel notes due for screening colonoscopy-hx of colon polyps (2019). Israel denies abdominal pain.. Israel denies diarrhea. Israel denies constipation. Israel denies a change in bowel habits. Israel denies melena. Israel denies bright red blood per rectum. Israel notes family history of colon issues. Mother with colon caner Israel denies heartburn. Israel denies dysphagia. Israel has undergone prior endoscopy. Last colonoscopy was 02/2020 with at [facility]. Sedation: Fentanyl 100 micrograms IV, Midazolam 5 mg IV Impression: - One 8 mm polyp in the descending colon, removed with a hot snare. Resected and retrieved. Clip was placed. CONVERTED FINAL DIAGNOSIS Ascending colon polyp, biopsy (A) - Tubular adenoma. WILLY/LAURENT/alexandra 02/17/2020 Current Outpatient Medications Medication Sig DULoxetine DR (CYMBALTA) 20 mg capsule Take 1 capsule by mouth once daily. sildenafil (VIAGRA) 100 mg tablet Take 1 tablet by mouth as needed (erectile dysfunction). Limit to only 1 tablet per 24 hour period of time sildenafil (VIAGRA) 100 mg tablet Take 1 tablet by mouth as needed (erectile dysfunction). Limit to only 1 tablet per 24 hour period of time rosuvastatin (CRESTOR) 10 mg tablet Take 1 tablet by mouth daily at bedtime. vitamin b complex capsule Take 1 capsule by mouth once daily. calcium carb-mag ox-zinc gluc 333-133-5 mg tab Take 1 tablet by mouth twice daily. krill oil 500 mg cap Take 3 capsules by mouth once daily. cholecalciferol, vitD3,/vit K2 (VITAMIN D3-VITAMIN K2) 125-90 mcg cap Take 1 capsule by mouth once daily. cyclobenzaprine (FLEXERIL) 10 mg tablet Take 1/2 to 1 full tablet three times daily as needed for back pain/spasm Ascorbic Acid (VITAMIN C) 1,000 mg tablet Take 1 tablet by mouth once daily. naproxen (NAPROSYN) 500 mg tablet Take 1 tablet by mouth twice daily with meals. peg 3350-Electrolytes (GOLYTELY) 236-22.74-6.74 -5.86 gram suspension Refer to printed prep instructions from your provider. No current facility-administered medications for this visit. ALLERGIES: Seasonal Allergies PAST MEDICAL HISTORY Diagnosis Date ED (erectile dysfunction) of non-organic origin Hyperlipemia lazy eye Low back pain Seborrheic keratoses PAST SURGICAL HISTORY Procedure Laterality Date COLONOSCOPY FLX DX W/COLLJ SPEC WHEN PFRMD 03/02/2014 Colonoscopy COLONOSCOPY FLX DX W/COLLJ SPEC WHEN PFRMD 02/16/2020 Colonoscopy HERNIA REPAIR HX age 4 and 12 2 inguinal hernia repairs PAST SURGICAL HISTORY OF 2020 Removal of Pilar cyst of scalp FAMILY HISTORY Problem Relation Age of Onset Colon Cancer Mother 44 at 44 with this. Cancer Father 68 Kidney 68 Cervical Cancer Sister abnormal pap Seizures Brother Diabetes Maternal Grandfather Cancer Maternal Grandfather Cancer Paternal Grandfather SOCIAL HISTORY[1] REVIEW OF SYMPTOMS: REVIEW OF SYSTEMS: General: The patient denies fatigue, denies weight loss, denies weight gain, denies feeling hot, and feelings of cold. Eyes: The patient denies glaucoma, denies eye injury/surgery, + glasses or contacts. Ear/Nose/Throat: The patient + allergies, denies hayfever, denies ear infections, and denies bloody noses. Cardiovascular: The patient denies chest pain, denies heart disease, denies high blood pressure, denies high cholesterol, and denies poor circulation. Respiratory: The patient denies tuberculosis, denies pneumonia, denies frequent cough, denies shortness of breath, and denies coughing up blood. Gastrointestinal: The patient denies difficulty swallowing, denies acid reflux, denies ulcers, denies jaundice/hepatitis, denies gallbladder problems, denies vomiting, denies black or tarry stools, denies hemorrhoids, denies bleeding from rectum, denies diverticulitis, denies constipation, denies diarrhea, denies loss of stool control, and denies hernias. Kidney/Bladder: The patient denies kidney stones, denies urine infections, and denies bloody urine. Skin: The patient denies a history of skin cancer, denies bleeding/changing moles, and denies a history of skin rash. Neurologic: The patient denies a history of epilepsy/convulsions, denies headaches, denies head/spinal injuries, and denies stroke/TIA. Psychiatric: The patient denies psychiatric medications, + depression, and denies voices. Endocrine: The patient denies thyroid disorders, denies diabetes, and denies hormonal problems. Hematologic: The patient denies a history of bruising, denies bleeding, and denies anemia. Infections: The patient denies a history of measles and mumps, denies rheumatic fever, and denies sexually transmitted diseases. Musculoskeletal: The patient + back pain/injury, denies back problems, denies sciatica, denies knee/foot trouble, denies arthritis, or denies gout. PHYSICAL EXAMINATION: General: The patient is 50 year old, male well nourished, well hydrated in no acute distress. The patient is oriented to time, place, and person. VITALS: Blood pressure 108/69, pulse (!) 58, temperature 36.7 C (98 F), temperature source Temporal, height 168 cm (5' 6.14), weight 74.9 kg (165 lb 3.2 oz), SpO2 99%. Body mass index is 26.55 kg/m . HEENT: Normal cephalic, ataumatic, pupils are equally round, sclera are anicteric, mucous membranes are moist, oropharynx is clear. Neck has no masses or asymmetry . Respiratory: Clear to auscultation. Cardiac: Regular rate and rhythm. Abdominal exam: Soft, nontender, with no palpable masses. No hepatosplenomegaly. No palpable hernias. Extremities: no clubbing or cyanosis LABORATORY VALUES: As Noted RADIOLOGIC STUDIES: As Noted Assessment IMPRESSION: screen for colon cancer, history of colon polyps, family history of colon cancer in mother PLAN: I have reviewed my findings with the surgeon. Will plan for lower endoscopy. We discussed the risks and benefits of the planned endoscopy in terms understandable to the patient. I have informed the patient that complications can occur including failure to complete the endoscopy and perforation. Israel had the opportunity to ask questions concerning the planned endoscopy. Israel freely consents to surgery. I plan to use Golytely bowel preparation I have explained to the patient the difference between IV conscious sedation and MAC anesthesia - and I have offered either, according to the patient's wishes. I have explained that with IV conscious sedation there is no anesthesia provider available and therefore there is a limitation of the amount of IV medications that can be given and that the patient may wake up in the middle of the procedure and/or experience pain/discomfort during the procedure. Further discussion was done and the patient was given the opportunity to ask questions and all questions were answered. Israel chooses IV conscious sedation. Israel was counseled that if there are changes in his/her medical condition, to let the office know if surgery should proceed. If there are changes in patient's medical condition from time of this encounter to the day of the procedure that preclude anesthesia, patient may have procedure cancelled for patient's safety. Diagnoses: (Z12.11) Screen for colon cancer (primary encounter diagnosis) (Z86.0100) History of colonic polyps (Z80.0) Family history of colon cancer in mother Portions of this documentation were copied and pasted from previous office visit notes in order to provide a cohesive continuity of the history. The note has been reviewed and edited and updated as necessary. Linda Granger APRN.CNP [1] Social History Tobacco Use Smoking status: Never Smokeless tobacco: Never Vaping Use Vaping status: Never Used Substance Use Topics Alcohol use: No Drug use: No documented in this encounter [facility] 03-18-2025 Note HNO ID: [id number] Author: LINDA GRANGER APRN.CNP Service: ? Author Type: Nurse Practitioner Type: Progress Notes Filed: 03/18/2025 13:42 Note Text: HISTORY AND PHYSICAL Israel Villar : 1975 REFERRING PHYSICIAN: No referring provider defined for this encounter. CHIEF COMPLAINT: Patient presents with: Consult HPI: Israel is a 50 year old male referred for endoscopy. Israel notes due for screening colonoscopy-hx of colon polyps (2019). Israel denies abdominal pain.. Israel denies diarrhea. Israel denies constipation. Israel denies a change in bowel habits. Israel denies melena. Israel denies bright red blood per rectum. Israel notes family history of colon issues. Mother with colon caner Israel denies heartburn. Israel denies dysphagia. Israel has undergone prior endoscopy. Last colonoscopy was 02/2020 with at [facility]. Sedation: Fentanyl 100 micrograms IV, Midazolam 5 mg IV Impression: - One 8 mm polyp in the descending colon, removed with a hot snare. Resected and retrieved. Clip was placed. CONVERTED FINAL DIAGNOSIS Ascending colon polyp, biopsy (A) - Tubular adenoma. KL/LAURENT/alexandra 02/17/2020 Current Outpatient Medications Medication Sig DULoxetine DR (CYMBALTA) 20 mg capsule Take 1 capsule by mouth once daily. sildenafil (VIAGRA) 100 mg tablet Take 1 tablet by mouth as needed (erectile dysfunction). Limit to only 1 tablet per 24 hour period of time sildenafil (VIAGRA) 100 mg tablet Take 1 tablet by mouth as needed (erectile dysfunction). Limit to only 1 tablet per 24 hour period of time rosuvastatin (CRESTOR) 10 mg tablet Take 1 tablet by mouth daily at bedtime. vitamin b complex capsule Take 1 capsule by mouth once daily. calcium carb-mag ox-zinc gluc 333-133-5 mg tab Take 1 tablet by mouth twice daily. krill oil 500 mg cap Take 3 capsules by mouth once daily. cholecalciferol, vitD3,/vit K2 (VITAMIN D3-VITAMIN K2) 125-90 mcg cap Take 1 capsule by mouth once daily. cyclobenzaprine (FLEXERIL) 10 mg tablet Take 1/2 to 1 full tablet three times daily as needed for back pain/spasm Ascorbic Acid (VITAMIN C) 1,000 mg tablet Take 1 tablet by mouth once daily. naproxen (NAPROSYN) 500 mg tablet Take 1 tablet by mouth twice daily with meals. peg 3350-Electrolytes (GOLYTELY) 236-22.74-6.74 -5.86 gram suspension Refer to printed prep instructions from your provider. No current facility-administered medications for this visit. ALLERGIES: Seasonal Allergies PAST MEDICAL HISTORY Diagnosis Date ED (erectile dysfunction) of non-organic origin Hyperlipemia lazy eye Low back pain Seborrheic keratoses PAST SURGICAL HISTORY Procedure Laterality Date COLONOSCOPY FLX DX W/COLLJ SPEC WHEN PFRMD 03/02/2014 Colonoscopy COLONOSCOPY FLX DX W/COLLJ SPEC WHEN PFRMD 02/16/2020 Colonoscopy HERNIA REPAIR HX age 4 and 12 2 inguinal hernia repairs PAST SURGICAL HISTORY OF 2020 Removal of Pilar cyst of scalp FAMILY HISTORY Problem Relation Age of Onset Colon Cancer Mother 44 at 44 with this. Cancer Father 68 Kidney 68 Cervical Cancer Sister abnormal pap Seizures Brother Diabetes Maternal Grandfather Cancer Maternal Grandfather Cancer Paternal Grandfather SOCIAL HISTORY[1] REVIEW OF SYMPTOMS: REVIEW OF SYSTEMS: General: The patient denies fatigue, denies weight loss, denies weight gain, denies feeling hot, and feelings of cold. Eyes: The patient denies glaucoma, denies eye injury/surgery, + glasses or contacts. Ear/Nose/Throat: The patient + allergies, denies hayfever, denies ear infections, and denies bloody noses. Cardiovascular: The patient denies chest pain, denies heart disease, denies high blood pressure, denies high cholesterol, and denies poor circulation. Respiratory: The patient denies tuberculosis, denies pneumonia, denies frequent cough, denies shortness of breath, and denies coughing up blood. Gastrointestinal: The patient denies difficulty swallowing, denies acid reflux, denies ulcers, denies jaundice/hepatitis, denies gallbladder problems, denies vomiting, denies black or tarry stools, denies hemorrhoids, denies bleeding from rectum, denies diverticulitis, denies constipation, denies diarrhea, denies loss of stool control, and denies hernias. Kidney/Bladder: The patient denies kidney stones, denies urine infections, and denies bloody urine. Skin: The patient denies a history of skin cancer, denies bleeding/changing moles, and denies a history of skin rash. Neurologic: The patient denies a history of epilepsy/convulsions, denies headaches, denies head/spinal injuries, and denies stroke/TIA. Psychiatric: The patient denies psychiatric medications, + depression, and denies voices. Endocrine: The patient denies thyroid disorders, denies diabetes, and denies hormonal problems. Hematologic: The patient denies a history of bruising, denies bleeding, and den (more content not included)... [facility] 03-05-2025 Telephone encounter Note Prescription Refill Information The patient has been identified by name and date of : Yes Caregiver verified no other encounters exist for this prescription request: Yes Caregiver confirmed with patient/requestor that no other refills are due, in the near future, with this provider at this time: Yes The last office visit in the department: 10/08/24 Does the patient have a future office visit with this provider/department: Yes Requested Prescriptions Pending Prescriptions Disp Refills sildenafil (VIAGRA) 100 mg tablet 30 tablet 1 Sig: Take 1 tablet by mouth as needed (erectile dysfunction). Limit to only 1 tablet per 24 hour period of time Christina Perdue LPN March 05, 2025 10:19 AM [facility] 03-05-2025 Miscellaneous Notes Prescription Refill Information The patient has been identified by name and date of : Yes Caregiver verified no other encounters exist for this prescription request: Yes Caregiver confirmed with patient/requestor that no other refills are due, in the near future, with this provider at this time: Yes The last office visit in the department: 10/08/24 Does the patient have a future office visit with this provider/department: Yes Requested Prescriptions Pending Prescriptions Disp Refills sildenafil (VIAGRA) 100 mg tablet 30 tablet 1 Sig: Take 1 tablet by mouth as needed (erectile dysfunction). Limit to only 1 tablet per 24 hour period of time Christina Perdue LPN March 05, 2025 10:19 AM documented in this encounter [facility] 03-04-2025 Telephone encounter Note This was just refilled in January for 90 days with 1 refill. Pt notified of such. ' [facility] 03-04-2025 Miscellaneous Notes This was just refilled in January for 90 days with 1 refill. Pt notified of such. ' documented in this encounter [facility] 01-30-2025 Telephone encounter Note Prescription Refill Information The patient has been identified by name and date of : Yes Caregiver verified no other encounters exist for this prescription request: Yes Caregiver confirmed with patient/requestor that no other refills are due, in the near future, with this provider at this time: Yes The last office visit in the department: 10/08/24 Does the patient have a future office visit with this provider/department: No Requested Prescriptions Pending Prescriptions Disp Refills rosuvastatin (CRESTOR) 10 mg tablet 90 tablet 1 Sig: Take 1 tablet by mouth daily at bedtime. Lauren Lauren LPN January 30, 2025 10:11 AM [facility] 01-30-2025 Miscellaneous Notes Prescription Refill Information The patient has been identified by name and date of : Yes Caregiver verified no other encounters exist for this prescription request: Yes Caregiver confirmed with patient/requestor that no other refills are due, in the near future, with this provider at this time: Yes The last office visit in the department: 10/08/24 Does the patient have a future office visit with this provider/department: No Requested Prescriptions Pending Prescriptions Disp Refills rosuvastatin (CRESTOR) 10 mg tablet 90 tablet 1 Sig: Take 1 tablet by mouth daily at bedtime. Lauren Lauren LPN January 30, 2025 10:11 AM documented in this encounter [facility] 10-20-2024 Telephone encounter Note Prescription Refill Information The patient has been identified by name and date of : Yes Caregiver verified no other encounters exist for this prescription request: Yes Caregiver confirmed with patient/requestor that no other refills are due, in the near future, with this provider at this time: Yes The last office visit in the department: 10/08/24 Does the patient have a future office visit with this provider/department: No Requested Prescriptions Pending Prescriptions Disp Refills sildenafil (VIAGRA) 100 mg tablet 30 tablet 1 Sig: Take 1 tablet by mouth as needed (erectile dysfunction). Limit to only 1 tablet per 24 hour period of time Brayan Ragsdale LPN October 20, 2024 10:43 AM [facility] 10-20-2024 Miscellaneous Notes Prescription Refill Information The patient has been identified by name and date of : Yes Caregiver verified no other encounters exist for this prescription request: Yes Caregiver confirmed with patient/requestor that no other refills are due, in the near future, with this provider at this time: Yes The last office visit in the department: 10/08/24 Does the patient have a future office visit with this provider/department: No Requested Prescriptions Pending Prescriptions Disp Refills sildenafil (VIAGRA) 100 mg tablet 30 tablet 1 Sig: Take 1 tablet by mouth as needed (erectile dysfunction). Limit to only 1 tablet per 24 hour period of time Brayan Ragsdale LPN October 20, 2024 10:43 AM documented in this encounter [facility] 10-08-2024 Note HNO ID: [id number] Author: JEREMIAS ETIENNE MD Service: ? Author Type: Physician Type: Progress Notes Filed: 10/08/2024 07:44 Note Text: Chief Complaint Patient presents with: Back Pain I have communicated my name and active licensure. The patient's identity and physical location were verified at the time of this visit. Either the patient or their legal counter sales representative has been informed of the risks and benefits of -- and alternatives to -- treatment through a remote evaluation and consents to proceed with the evaluation remotely. KAEL Villar is a 49 year old male who presents here today for Above Complaints. Virtual visit. Patient complaining of lower back pain which started 3-4 days ago after bending over to pickle maker something. States that since then, his pain has been worsening and he is unable to walk. States that he is crawling everywhere and when he does go to stand he feels like his legs are going to give out. Denies loss of bowel/bladder control, saddle anesthesia. Wearing back brace for pain. States he has had something like this before and pain usually lasts about 8-9 days. Past medical history, appointments, medications, allergies reviewed. Previous Medical History PAST MEDICAL HISTORY Diagnosis Date ED (erectile dysfunction) of non-organic origin Hyperlipemia lazy eye Low back pain Previous Surgical History PAST SURGICAL HISTORY Procedure Laterality Date COLONOSCOPY FLX DX W/COLLJ SPEC WHEN PFRMD 03/02/2014 Colonoscopy COLONOSCOPY FLX DX W/COLLJ SPEC WHEN PFRMD 02/16/2020 Colonoscopy HERNIA REPAIR HX age 4 and 12 2 inguinal hernia repairs Family History FAMILY HISTORY Problem Relation Age of Onset Colon Cancer Mother 44 at 44 with this. Cancer Father 68 Kidney 68 Cervical Cancer Sister abnormal pap Seizures Brother Diabetes Maternal Grandfather Cancer Maternal Grandfather Cancer Paternal Grandfather Patient Allergies ALLERGIES Allergen Reactions Seasonal Allergies Other: See Comments Sinus congestion Current Medications Current Outpatient Medications on File Prior to Visit Medication Sig sildenafil (VIAGRA) 100 mg tablet Take 1 tablet by mouth as needed (erectile dysfunction). Limit to only 1 tablet per 24 hour period of time rosuvastatin (CRESTOR) 10 mg tablet Take 1 tablet by mouth daily at bedtime. vitamin b complex capsule Take 1 capsule by mouth once daily. calcium carb-mag ox-zinc gluc 333-133-5 mg tab Take 1 tablet by mouth twice daily. krill oil 500 mg cap Take 3 capsules by mouth once daily. cholecalciferol, vitD3,/vit K2 (VITAMIN D3-VITAMIN K2) 125-90 mcg cap Take 1 capsule by mouth once daily. cyclobenzaprine (FLEXERIL) 10 mg tablet Take 1/2 to 1 full tablet three times daily as needed for back pain/spasm Ascorbic Acid (VITAMIN C) 1,000 mg tablet Take 1 tablet by mouth once daily. naproxen (NAPROSYN) 500 mg tablet Take 1 tablet by mouth twice daily with meals. No current facility-administered medications on file prior to visit. Social History Social History Tobacco Use Smoking status: Never Smokeless tobacco: Never Vaping Use Vaping status: Never Used Substance Use Topics Alcohol use: No Drug use: No Review of Symptoms REVIEW OF SYSTEMS See HPI EXAM: There were no vitals taken for this visit. General Appearance: Well appearing, alert, in no acute distress, well-hydrated, well nourished. Appears to be lying on his couch at home. Health Maintenance List Depression Screening Never done Anxiety Screening Never done HIV Screening Never done Hepatitis B Vaccine(1 of 3 - 19+ 3-dose series) Never done Influenza Vaccine(1) due on 03/09/2024 Covid-19 Vaccine(2023- season) Never done Colorectal Cancer Screening due on 02/15/2025 Diabetes Screening due on 04/14/2027 Lipid Screening due on 04/14/2029 DTaP,Tdap,Td Vaccine(2 - Td or Tdap) due on 04/13/2031 Hepatitis C Screening Completed ASSESSMENT/PLAN: 1. Acute low back pain without sciatica, unspecified back pain laterality - ICD9: 724.2, ICD10: M54.50 (primary diagnosis) Discussed with patient that he has possible symptoms of cauda equina with severe back pain and LE weakness. Advised that I cannot appropriately assess him on at virtual visit for this complaint and would have him go to the ER for emergent evaluation based on symptoms reported. Will need f/u with PCP team on discharge. Patient agreeable and will go to ER today. 2. Weakness of both lower extremities - ICD9: 729.89, ICD10: R29.898 See above. I spent a total of 13 minutes on the date of the service which included preparing to see the patient, [id number] patient care, completing clinical documentation, obtaining and/or reviewing separately obtained history, and performing a medically appropriate examination. Jeremias Etienne MD [facility] 10-08-2024 History of Present illness Narrative Chief Complaint Patient presents with: Back Pain I have communicated my name and active licensure. The patient's identity and physical location were verified at the time of this visit. Either the patient or their legal counter sales representative has been informed of the risks and benefits of -- and alternatives to -- treatment through a remote evaluation and consents to proceed with the evaluation remotely. KAEL Villar is a 49 year old male who presents here today for Above Complaints. Virtual visit. Patient complaining of lower back pain which started 3-4 days ago after bending over to pickle maker something. States that since then, his pain has been worsening and he is unable to walk. States that he is crawling everywhere and when he does go to stand he feels like his legs are going to give out. Denies loss of bowel/bladder control, saddle anesthesia. Wearing back brace for pain. States he has had something like this before and pain usually lasts about 8-9 days. Past medical history, appointments, medications, allergies reviewed. Previous Medical History PAST MEDICAL HISTORY Diagnosis Date ED (erectile dysfunction) of non-organic origin Hyperlipemia lazy eye Low back pain Previous Surgical History PAST SURGICAL HISTORY Procedure Laterality Date COLONOSCOPY FLX DX W/COLLJ SPEC WHEN PFRMD 03/02/2014 Colonoscopy COLONOSCOPY FLX DX W/COLLJ SPEC WHEN PFRMD 02/16/2020 Colonoscopy HERNIA REPAIR HX age 4 and 12 2 inguinal hernia repairs Family History FAMILY HISTORY Problem Relation Age of Onset Colon Cancer Mother 44 at 44 with this. Cancer Father 68 Kidney 68 Cervical Cancer Sister abnormal pap Seizures Brother Diabetes Maternal Grandfather Cancer Maternal Grandfather Cancer Paternal Grandfather Patient Allergies ALLERGIES Allergen Reactions Seasonal Allergies Other: See Comments Sinus congestion Current Medications Current Outpatient Medications on File Prior to Visit Medication Sig sildenafil (VIAGRA) 100 mg tablet Take 1 tablet by mouth as needed (erectile dysfunction). Limit to only 1 tablet per 24 hour period of time rosuvastatin (CRESTOR) 10 mg tablet Take 1 tablet by mouth daily at bedtime. vitamin b complex capsule Take 1 capsule by mouth once daily. calcium carb-mag ox-zinc gluc 333-133-5 mg tab Take 1 tablet by mouth twice daily. krill oil 500 mg cap Take 3 capsules by mouth once daily. cholecalciferol, vitD3,/vit K2 (VITAMIN D3-VITAMIN K2) 125-90 mcg cap Take 1 capsule by mouth once daily. cyclobenzaprine (FLEXERIL) 10 mg tablet Take 1/2 to 1 full tablet three times daily as needed for back pain/spasm Ascorbic Acid (VITAMIN C) 1,000 mg tablet Take 1 tablet by mouth once daily. naproxen (NAPROSYN) 500 mg tablet Take 1 tablet by mouth twice daily with meals. No current facility-administered medications on file prior to visit. Social History Social History Tobacco Use Smoking status: Never Smokeless tobacco: Never Vaping Use Vaping status: Never Used Substance Use Topics Alcohol use: No Drug use: No Review of Symptoms REVIEW OF SYSTEMS See HPI EXAM: There were no vitals taken for this visit. General Appearance: Well appearing, alert, in no acute distress, well-hydrated, well nourished. Appears to be lying on his couch at home. Health Maintenance List Depression Screening Never done Anxiety Screening Never done HIV Screening Never done Hepatitis B Vaccine(1 of 3 - 19+ 3-dose series) Never done Influenza Vaccine(1) due on 03/09/2024 Covid-19 Vaccine(2023- season) Never done Colorectal Cancer Screening due on 02/15/2025 Diabetes Screening due on 04/14/2027 Lipid Screening due on 04/14/2029 DTaP,Tdap,Td Vaccine(2 - Td or Tdap) due on 04/13/2031 Hepatitis C Screening Completed ASSESSMENT/PLAN: 1. Acute low back pain without sciatica, unspecified back pain laterality - ICD9: 724.2, ICD10: M54.50 (primary diagnosis) Discussed with patient that he has possible symptoms of cauda equina with severe back pain and LE weakness. Advised that I cannot appropriately assess him on at virtual visit for this complaint and would have him go to the ER for emergent evaluation based on symptoms reported. Will need f/u with PCP team on discharge. Patient agreeable and will go to ER today. 2. Weakness of both lower extremities - ICD9: 729.89, ICD10: R29.898 See above. I spent a total of 13 minutes on the date of the service which included preparing to see the patient, [id number] patient care, completing clinical documentation, obtaining and/or reviewing separately obtained history, and performing a medically appropriate examination. Jeremias Etienne MD documented in this encounter [facility] 08-08-2024 Telephone encounter Note See refill encounter [facility] 08-08-2024 Miscellaneous Notes See refill encounter documented in this encounter [facility] 08-08-2024 Telephone encounter Note Images from the original note were not included. Israel Villartr [facility] My Chart Rx Pool I am unable to renew my prescription for sildenafil 100 mg tablet and have it sent to the [facility] pharmacy [facility] 08-08-2024 Miscellaneous Notes Images from the original note were not included. Israel Villar [facility] My Chart Rx Pool I am unable to renew my prescription for sildenafil 100 mg tablet and have it sent to the [facility] pharmacy documented in this encounter [facility] 06-30-2024 Telephone encounter Note Prescription Refill Information The patient has been identified by name and date of : Yes Caregiver verified no other encounters exist for this prescription request: Yes Caregiver confirmed with patient/requestor that no other refills are due, in the near future, with this provider at this time: No The last office visit in the department: 03/26/24 Does the patient have a future office visit with this provider/department: No Requested Prescriptions Pending Prescriptions Disp Refills rosuvastatin (CRESTOR) 10 mg tablet 90 tablet 1 Sig: Take 1 tablet by mouth daily at bedtime. Minnie Ruiz MA June 30, 2024 9:10 AM [facility] 06-30-2024 Miscellaneous Notes Prescription Refill Information The patient has been identified by name and date of : Yes Caregiver verified no other encounters exist for this prescription request: Yes Caregiver confirmed with patient/requestor that no other refills are due, in the near future, with this provider at this time: No The last office visit in the department: 03/26/24 Does the patient have a future office visit with this provider/department: No Requested Prescriptions Pending Prescriptions Disp Refills rosuvastatin (CRESTOR) 10 mg tablet 90 tablet 1 Sig: Take 1 tablet by mouth daily at bedtime. Minnie Ruiz MA June 30, 2024 9:10 AM documented in this encounter [facility] 06-30-2024 Telephone encounter Note See refill request June 30, 2024 [facility] 06-30-2024 Miscellaneous Notes See refill request June 30, 2024 documented in this encounter [facility] 05-30-2024 Telephone encounter Note The patient has been identified by name and date of : Yes Caregiver verified no other encounters exist for this prescription request: Yes Caregiver confirmed with patient/requestor that no other refills are due, in the near future, with this provider at this time: Yes The last office visit in the department: 03/26/2024 Does the patient have a future office visit with this provider/department: No Visit date not found Requested Prescriptions Pending Prescriptions Disp Refills sildenafil (VIAGRA) 100 mg tablet 30 tablet 1 Sig: Take 1 tablet by mouth as needed (erectile dysfunction). Limit to only 1 tablet per 24 hour period of time Pat Cox LPN May 30, 2024 7:50 AM [facility] 05-30-2024 Miscellaneous Notes The patient has been identified by name and date of : Yes Caregiver verified no other encounters exist for this prescription request: Yes Caregiver confirmed with patient/requestor that no other refills are due, in the near future, with this provider at this time: Yes The last office visit in the department: 03/26/2024 Does the patient have a future office visit with this provider/department: No Visit date not found Requested Prescriptions Pending Prescriptions Disp Refills sildenafil (VIAGRA) 100 mg tablet 30 tablet 1 Sig: Take 1 tablet by mouth as needed (erectile dysfunction). Limit to only 1 tablet per 24 hour period of time Pat Cox LPN May 30, 2024 7:50 AM documented in this encounter [facility] 03-26-2024 Note HNO ID: [id number] Author: NESTOR JUÁREZ, DO Service: ? Author Type: Physician Type: Progress Notes Filed: 03/26/2024 14:40 Note Text: CC: Israel Villar is a 49 year old male who presents to the office for physical HPI: Overall he is doing well He is working on trying to maintain a healthy balanced diet. Needs to be weight lifting and exercising more routinely that what he is currently doing. Some fatigue, worse than in years past. Less motivation to lift etc. PAST MEDICAL HISTORY Diagnosis Date ED (erectile dysfunction) of non-organic origin Hyperlipemia lazy eye Low back pain PAST SURGICAL HISTORY Procedure Laterality Date COLONOSCOPY FLX DX W/COLLJ SPEC WHEN PFRMD 03/02/2014 Colonoscopy COLONOSCOPY FLX DX W/COLLJ SPEC WHEN PFRMD 02/16/2020 Colonoscopy HERNIA REPAIR HX age 4 and 12 2 inguinal hernia repairs Social History: Social History Tobacco Use Smoking status: Never Smokeless tobacco: Never Vaping Use Vaping status: Never Used Substance Use Topics Alcohol use: No Drug use: No FAMILY HISTORY Problem Relation Age of Onset Colon Cancer Mother 44 at 44 with this. Cancer Father 68 Kidney 68 Cervical Cancer Sister abnormal pap Seizures Brother Diabetes Maternal Grandfather Cancer Maternal Grandfather Cancer Paternal Grandfather Current Outpatient prescriptions: sildenafil (VIAGRA) 100 mg tablet Take 1 tablet by mouth as needed (erectile dysfunction). Limit to only 1 tablet per 24 hour period of time vitamin b complex capsule Take 1 capsule by mouth once daily. rosuvastatin (CRESTOR) 10 mg tablet Take 1 tablet by mouth daily at bedtime. calcium carb-mag ox-zinc gluc 333-133-5 mg tab Take 1 tablet by mouth twice daily. krill oil 500 mg cap Take 3 capsules by mouth once daily. cholecalciferol, vitD3,/vit K2 (VITAMIN D3-VITAMIN K2) 125-90 mcg cap Take 1 capsule by mouth once daily. cyclobenzaprine (FLEXERIL) 10 mg tablet Take 1/2 to 1 full tablet three times daily as needed for back pain/spasm Ascorbic Acid (VITAMIN C) 1,000 mg tablet Take 1 tablet by mouth once daily. naproxen (NAPROSYN) 500 mg tablet Take 1 tablet by mouth twice daily with meals. Allergies: ALLERGIES Allergen Reactions Seasonal Allergies Other: See Comments Sinus congestion ROS: See HPI PE: 03/26/24 1407 BP: 100/70 Pulse: 80 Temp: 36.6 ?C (97.8 ?F) TempSrc: Left Tympanic Weight: 73.8 kg (162 lb 11.2 oz) Height: 168 cm (5' 6.14) Gen: AANDO, NAD, non-toxic appearing, Pleasant, cooperative HEENT: NT/AC, PERRLA, EOMs intact b/l, nares clear and patent b/l, pharynx without erythema, exudate or lesions. MMM, Uvula midline. EACs without erythema or debris. TMs pearly avitia with intact landmarks b/l. Neck: supple, No cervical LAD, no thyromegaly, no carotid bruits CV: RRR, normal S1 and S2, no murmurs, no gallops, no rubs, Pulses 2+ and symmetric in UE and LE b/l Lungs: normal respiratory effort, CTA b/l, no wheezing or rhonchi or rales Abd: soft, NT, ND, +BS, no hepatosplenomegaly MS: FROM all 4 extremities Neuro: CN II-XII intact b/l, strength 5/5 b/l UE and LE, DTRs 2/4 UE and LE, sensation intact. Skin: warm, dry, intact, wart on left hand 3rd dorsal finger, scattered seborrheic keratoses No edema, normal pulses ASSESSMENT/PLAN: 1. Well adult exam - ICD9: V70.0, ICD10: Z00.00 (primary diagnosis) - Counseled on healthy diet and regular exercise - HEMOGLOBIN A1C - MAGNESIUM 2. Common wart - ICD9: 078.19, ICD10: B07.8 Treated x 1 with cryotherapy at request of patient, he tolerated the procedure well, no complications. 3. Dyslipidemia - ICD9: 272.4, ICD10: E78.5 - Control undetermined, due for labs - Counseled on healthy diet and regular exercise Nestor Juárez DO To ER if develops chest pain, shortness of breath, or severe worsening of symptoms. Discussed risks, benefits, alternatives, and potential side effects of medications. Patient expressed understanding and agreed with the plan. Nestor Juárez DO [address] [place] [address] [facility] 03-26-2024 History of Present illness Narrative CC: Israel Villar is a 49 year old male who presents to the office for physical HPI: Overall he is doing well He is working on trying to maintain a healthy balanced diet. Needs to be weight lifting and exercising more routinely that what he is currently doing. Some fatigue, worse than in years past. Less motivation to lift etc. PAST MEDICAL HISTORY Diagnosis Date ED (erectile dysfunction) of non-organic origin Hyperlipemia lazy eye Low back pain PAST SURGICAL HISTORY Procedure Laterality Date COLONOSCOPY FLX DX W/COLLJ SPEC WHEN PFRMD 03/02/2014 Colonoscopy COLONOSCOPY FLX DX W/COLLJ SPEC WHEN PFRMD 02/16/2020 Colonoscopy HERNIA REPAIR HX age 4 and 12 2 inguinal hernia repairs Social History: Social History Tobacco Use Smoking status: Never Smokeless tobacco: Never Vaping Use Vaping status: Never Used Substance Use Topics Alcohol use: No Drug use: No FAMILY HISTORY Problem Relation Age of Onset Colon Cancer Mother 44 at 44 with this. Cancer Father 68 Kidney 68 Cervical Cancer Sister abnormal pap Seizures Brother Diabetes Maternal Grandfather Cancer Maternal Grandfather Cancer Paternal Grandfather Current Outpatient prescriptions: sildenafil (VIAGRA) 100 mg tablet Take 1 tablet by mouth as needed (erectile dysfunction). Limit to only 1 tablet per 24 hour period of time vitamin b complex capsule Take 1 capsule by mouth once daily. rosuvastatin (CRESTOR) 10 mg tablet Take 1 tablet by mouth daily at bedtime. calcium carb-mag ox-zinc gluc 333-133-5 mg tab Take 1 tablet by mouth twice daily. krill oil 500 mg cap Take 3 capsules by mouth once daily. cholecalciferol, vitD3,/vit K2 (VITAMIN D3-VITAMIN K2) 125-90 mcg cap Take 1 capsule by mouth once daily. cyclobenzaprine (FLEXERIL) 10 mg tablet Take 1/2 to 1 full tablet three times daily as needed for back pain/spasm Ascorbic Acid (VITAMIN C) 1,000 mg tablet Take 1 tablet by mouth once daily. naproxen (NAPROSYN) 500 mg tablet Take 1 tablet by mouth twice daily with meals. Allergies: ALLERGIES Allergen Reactions Seasonal Allergies Other: See Comments Sinus congestion ROS: See HPI PE: 03/26/24 1407 BP: 100/70 Pulse: 80 Temp: 36.6 C (97.8 F) TempSrc: Left Tympanic Weight: 73.8 kg (162 lb 11.2 oz) Height: 168 cm (5' 6.14) Gen: A&O, NAD, non-toxic appearing, Pleasant, cooperative HEENT: NT/AC, PERRLA, EOMs intact b/l, nares clear and patent b/l, pharynx without erythema, exudate or lesions. MMM, Uvula midline. EACs without erythema or debris. TMs pearly avitia with intact landmarks b/l. Neck: supple, No cervical LAD, no thyromegaly, no carotid bruits CV: RRR, normal S1 and S2, no murmurs, no gallops, no rubs, Pulses 2+ and symmetric in UE and LE b/l Lungs: normal respiratory effort, CTA b/l, no wheezing or rhonchi or rales Abd: soft, NT, ND, +BS, no hepatosplenomegaly MS: FROM all 4 extremities Neuro: CN II-XII intact b/l, strength 5/5 b/l UE and LE, DTRs 2/4 UE and LE, sensation intact. Skin: warm, dry, intact, wart on left hand 3rd dorsal finger, scattered seborrheic keratoses No edema, normal pulses ASSESSMENT/PLAN: 1. Well adult exam - ICD9: V70.0, ICD10: Z00.00 (primary diagnosis) - Counseled on healthy diet and regular exercise - HEMOGLOBIN A1C - MAGNESIUM 2. Common wart - ICD9: 078.19, ICD10: B07.8 Treated x 1 with cryotherapy at request of patient, he tolerated the procedure well, no complications. 3. Dyslipidemia - ICD9: 272.4, ICD10: E78.5 - Control undetermined, due for labs - Counseled on healthy diet and regular exercise Nestor Juárez DO To ER if develops chest pain, shortness of breath, or severe worsening of symptoms. Discussed risks, benefits, alternatives, and potential side effects of medications. Patient expressed understanding and agreed with the plan. Nestor Juárez DO [address] [place] [address] documented in this encounter [facility] 03-24-2024 Telephone encounter Note Prescription Refill Information The patient has been identified by name and date of : Yes Caregiver verified no other encounters exist for this prescription request: Yes Caregiver confirmed with patient/requestor that no other refills are due, in the near future, with this provider at this time: Yes The last office visit in the department: 01/23/24 Does the patient have a future office visit with this provider/department: Yes 03/26/24 Requested Prescriptions Pending Prescriptions Disp Refills sildenafil (VIAGRA) 100 mg tablet 30 tablet 1 Sig: Take 1 tablet by mouth as needed (erectile dysfunction). Limit to only 1 tablet per 24 hour period of time Dalia Lujan LPN March 24, 2024 1:28 PM [facility] 03-24-2024 Miscellaneous Notes Prescription Refill Information The patient has been identified by name and date of : Yes Caregiver verified no other encounters exist for this prescription request: Yes Caregiver confirmed with patient/requestor that no other refills are due, in the near future, with this provider at this time: Yes The last office visit in the department: 01/23/24 Does the patient have a future office visit with this provider/department: Yes 03/26/24 Requested Prescriptions Pending Prescriptions Disp Refills sildenafil (VIAGRA) 100 mg tablet 30 tablet 1 Sig: Take 1 tablet by mouth as needed (erectile dysfunction). Limit to only 1 tablet per 24 hour period of time Dalia Lujan LPN March 24, 2024 1:28 PM documented in this encounter [facility] 01-23-2024 History of Present illness Narrative Chief Complaint Patient presents with: spots on hands and arms getting daker and biggr HPI Israel N Jian is a 49 year old male who presents here today for Above Complaints. Israel is an established patient of Dr. Emanuel DO. He is a new patient to me today. Concerns today.. Pt asking about spots on bilateral forearms. Just wanted to keep an eye on these due to getting darker and slightly bigger since being out in the sun a lot. No raised areas or roughness. No tenderness, redness or warmth. Hx of AK with removal by freezing them off. No other concerns. Past medical history, appointments, medications, allergies reviewed. Previous Medical History PAST MEDICAL HISTORY Diagnosis Date ED (erectile dysfunction) of non-organic origin Hyperlipemia lazy eye Low back pain Previous Surgical History PAST SURGICAL HISTORY Procedure Laterality Date COLONOSCOPY FLX DX W/COLLJ SPEC WHEN PFRMD 03/02/2014 Colonoscopy COLONOSCOPY FLX DX W/COLLJ SPEC WHEN PFRMD 02/16/2020 Colonoscopy HERNIA REPAIR HX age 4 and 12 2 inguinal hernia repairs Family History FAMILY HISTORY Problem Relation Age of Onset Colon Cancer Mother 44 at 44 with this. Cancer Father 68 Kidney 68 Cervical Cancer Sister abnormal pap Seizures Brother Diabetes Maternal Grandfather Cancer Maternal Grandfather Cancer Paternal Grandfather Patient Allergies ALLERGIES Allergen Reactions Seasonal Allergies Other: See Comments Sinus congestion Current Medications Current Outpatient Medications on File Prior to Visit Medication Sig sildenafil (VIAGRA) 100 mg tablet Take 1 tablet by mouth as needed (erectile dysfunction). Limit to only 1 tablet per 24 hour period of time vitamin b complex capsule Take 1 capsule by mouth once daily. rosuvastatin (CRESTOR) 10 mg tablet Take 1 tablet by mouth daily at bedtime. calcium carb-mag ox-zinc gluc 333-133-5 mg tab Take 1 tablet by mouth twice daily. krill oil 500 mg cap Take 3 capsules by mouth once daily. cholecalciferol, vitD3,/vit K2 (VITAMIN D3-VITAMIN K2) 125-90 mcg cap Take 1 capsule by mouth once daily. cyclobenzaprine (FLEXERIL) 10 mg tablet Take 1/2 to 1 full tablet three times daily as needed for back pain/spasm Ascorbic Acid (VITAMIN C) 1,000 mg tablet Take 1 tablet by mouth once daily. naproxen (NAPROSYN) 500 mg tablet Take 1 tablet by mouth twice daily with meals. No current facility-administered medications on file prior to visit. Social History Social History Tobacco Use Smoking status: Never Smokeless tobacco: Never Vaping Use Vaping Use: Never used Substance Use Topics Alcohol use: No Drug use: No REVIEW OF SYSTEMS: as above Reviewed relevant PMHx, PSHx, Social Hx, current medications and allergies. Review of Symptoms REVIEW OF SYSTEMS See HPI. EXAM: BP 100/78 (BP Site: Left Arm, BP Position: Sitting, BP Cuff Size: Regular Adult) Pulse 66 Resp 16 Wt 73.1 kg (161 lb 3.2 oz) SpO2 97% BMI 24.72 kg/m General Appearance: Well appearing, alert, in no acute distress, well-hydrated, well nourished.. Skin: Skin color, texture, turgor normal, no suspicious rashes or lesions, Positives: flat, small, oval-shaped, dry, dark pigmented patches on the skin of forearms. Health Maintenance List HIV Screening Never done Hepatitis B Vaccine(1 of 3 - 19+ 3-dose series) Never done Behavioral Health Screening Never done Covid-19 Vaccine( season) due on 06/18/2024 Influenza Vaccine(1) due on 03/09/2024 Colorectal Cancer Screening due on 02/15/2025 Diabetes Screening due on 06/26/2026 Lipid Screening due on 06/26/2028 DTaP,Tdap,Td Vaccine(2 - Td or Tdap) due on 04/13/2031 Hepatitis C Screening Completed ASSESSMENT/PLAN: 1. Seborrheic keratoses - ICD9: 702.19, ICD10: L82.1 (primary diagnosis) No concerning lesions at this time. Will continue to monitor. Follow-up in 3 months for routine physical and will reassess. Discussed importance of SPF and limited sun exposure. 2. Screening for prostate cancer - ICD9: V76.44, ICD10: Z12.5 Labs prior to upcoming physical. - PSA/PROSTATE SPECIFIC ANTIGEN SCREENING 3. Dyslipidemia - ICD9: 272.4, ICD10: E78.5 - Control undetermined, due for labs Labs prior to upcoming physical. - LIPID PANEL BASIC 4. Well adult exam - ICD9: V70.0, ICD10: Z00.00 Labs prior to upcoming physical. - COMPREHENSIVE METABOLIC PANEL - COMPLETE BLOOD COUNT AND DIFFERENTIAL 5. Fatigue, unspecified type - ICD9: 780.79, ICD10: R53.83 Labs prior to upcoming physical. - VITAMIN D 25 HYDROXY - VITAMIN B12 - TESTOSTERONE, FREE AND TOTAL - THYROID STIMULATING HORMONE RTO in 3 months, sooner if needed. Prescription instructions reviewed with patient as applicable. Potential red flag symptoms discussed with the patient. Reviewed appropriate action plan to take if red flag symptoms occur. Patient agreeable to treatment plan. Margaret Nicholas APRN.[employer] [address] [place] [address] documented in this encounter [facility] 01-22-2024 Telephone encounter Note Patient sent in (2) messages to be scheduled. PSS scheduled patient for 01/24/2024 at 9:00 am. Patient was sent the link and then Patient scheduled himself for 01/23/2024 at 7:[address] Ledezma. Patient then cancelled the appointment with Keerthi on 01/24/2024. Annabelle Singh MA [facility] 01-22-2024 Miscellaneous Notes Patient sent in (2) messages to be scheduled. PSS scheduled patient for 01/24/2024 at 9:00 am. Patient was sent the link and then Patient scheduled himself for 01/23/2024 at 7:[address] Ledezma. Patient then cancelled the appointment with Keerthi on 01/24/2024. Annabelle Singh MA Sent pt link to schedule appt. Last office visit-- 06/18/2023 Madina Sol MA documented in this encounter [facility] 01-22-2024 Telephone encounter Note Sent pt link to schedule appt. Last office visit-- 06/18/2023 Madina Sol MA [facility] 01-16-2024 Telephone encounter Note Prescription Refill Information The patient has been identified by name and date of : Yes Caregiver verified no other encounters exist for this prescription request: Yes Caregiver confirmed with patient/requestor that no other refills are due, in the near future, with this provider at this time: Yes The last office visit in the department: 06/18/2023 Does the patient have a future office visit with this provider/department: No Requested Prescriptions Pending Prescriptions Disp Refills sildenafil (VIAGRA) 100 mg tablet 30 tablet 1 Sig: Take 1 tablet by mouth as needed (erectile dysfunction). Limit to only 1 tablet per 24 hour period of time Shantel Beaulieu January 16, 2024 3:08 PM [facility] 01-16-2024 Miscellaneous Notes Prescription Refill Information The patient has been identified by name and date of : Yes Caregiver verified no other encounters exist for this prescription request: Yes Caregiver confirmed with patient/requestor that no other refills are due, in the near future, with this provider at this time: Yes The last office visit in the department: 06/18/2023 Does the patient have a future office visit with this provider/department: No Requested Prescriptions Pending Prescriptions Disp Refills sildenafil (VIAGRA) 100 mg tablet 30 tablet 1 Sig: Take 1 tablet by mouth as needed (erectile dysfunction). Limit to only 1 tablet per 24 hour period of time Shantel Beaulieu January 16, 2024 3:08 PM documented in this encounter [facility] 11-20-2023 Telephone encounter Note Patient has been identified by name and date of : Patient phones for refill(s): Requested Prescriptions Pending Prescriptions Disp Refills rosuvastatin (CRESTOR) 10 mg tablet 90 tablet 1 Sig: Take 1 tablet by mouth daily at bedtime. Date of last office visit in primary care: 06/18/2023 Date of next office visit in primary care: Visit date not found Please advise. Thank you. Radha Torrez LPN. [facility] 11-20-2023 Telephone encounter Note Patient has been identified by name and date of : Patient phones for refill(s): Requested Prescriptions Pending Prescriptions Disp Refills vitamin b complex capsule 100 capsule 11 Sig: Take 1 capsule by mouth once daily. Date of last office visit in primary care: 06/18/2023 Date of next office visit in primary care: 11/20/2023 Please advise. Thank you. Radha Torrez LPN. [facility] 11-20-2023 Miscellaneous Notes Patient has been identified by name and date of : Patient phones for refill(s): Requested Prescriptions Pending Prescriptions Disp Refills rosuvastatin (CRESTOR) 10 mg tablet 90 tablet 1 Sig: Take 1 tablet by mouth daily at bedtime. Date of last office visit in primary care: 06/18/2023 Date of next office visit in primary care: Visit date not found Please advise. Thank you. Radha Torrez LPN. documented in this encounter [facility] 11-20-2023 Miscellaneous Notes Patient has been identified by name and date of : Patient phones for refill(s): Requested Prescriptions Pending Prescriptions Disp Refills vitamin b complex capsule 100 capsule 11 Sig: Take 1 capsule by mouth once daily. Date of last office visit in primary care: 06/18/2023 Date of next office visit in primary care: 11/20/2023 Please advise. Thank you. Radha Torrez LPN. documented in this encounter [facility] 10-31-2023 Telephone encounter Note Patient has been identified by name and date of : Yes, Provider Dr. Juárez Date 10/31/23 Time 9:23 Patient phones for refill(s): Requested Prescriptions Pending Prescriptions Disp Refills sildenafil (VIAGRA) 100 mg tablet 30 tablet 1 Sig: Take 1 tablet by mouth as needed (erectile dysfunction). Limit to only 1 tablet per 24 hour period of time Date of last office visit in primary care: 06/18/2023 Date of next office visit in primary care: Visit date not found Please advise. Thank you. Lauren Lauren LPN. [facility] 10-31-2023 Miscellaneous Notes Patient has been identified by name and date of : Yes, Provider Dr. Juárez Date 10/31/23 Time 9:23 Patient phones for refill(s): Requested Prescriptions Pending Prescriptions Disp Refills sildenafil (VIAGRA) 100 mg tablet 30 tablet 1 Sig: Take 1 tablet by mouth as needed (erectile dysfunction). Limit to only 1 tablet per 24 hour period of time Date of last office visit in primary care: 06/18/2023 Date of next office visit in primary care: Visit date not found Please advise. Thank you. Lauren Lauren LPN. documented in this encounter [facility] 08-23-2023 Miscellaneous Notes NOLBERTO-06/18/23 Labs-06/26/23 NOV-none Dalia Lujan LPN documented in this encounter [facility] 06-18-2023 History of Present illness Narrative CC: Israel Villar is a 48 year old male who presents to the office for physical. HPI: Occasional neck pain, older brother and his sister recently diagnosed with significant DJD and DDD cervical spine. He is concerned that he may have the same issue since has this in his lumbar spine. Occasional tight muscles in neck and aching. No injuries ERECTILE DYSFUNCTION, stable, use of Viagra with benefit. Willing to have labs rechecked Chronic ongoing fatigue, years and years of symptoms. HPL, interested in recheck of labs. Tries to diet control. PAST MEDICAL HISTORY Diagnosis Date ED (erectile dysfunction) of non-organic origin Hyperlipemia lazy eye Low back pain PAST SURGICAL HISTORY Procedure Laterality Date COLONOSCOPY FLX DX W/COLLJ SPEC WHEN PFRMD 03/02/2014 Colonoscopy COLONOSCOPY FLX DX W/COLLJ SPEC WHEN PFRMD 02/16/2020 Colonoscopy HERNIA REPAIR HX age 4 and 12 2 inguinal hernia repairs Social History: Social History Tobacco Use Smoking status: Never Smokeless tobacco: Never Vaping Use Vaping Use: Never used Substance Use Topics Alcohol use: No Drug use: No FAMILY HISTORY Problem Relation Age of Onset Colon Cancer Mother 44 at 44 with this. Cancer Father 68 Kidney 68 Cervical Cancer Sister abnormal pap Seizures Brother Diabetes Maternal Grandfather Cancer Maternal Grandfather Cancer Paternal Grandfather Current Outpatient prescriptions: rosuvastatin (CRESTOR) 10 mg tablet Take 1 tablet by mouth daily at bedtime. sildenafil (VIAGRA) 100 mg tablet Take 1 tablet by mouth as needed (erectile dysfunction). Limit to only 1 tablet per 24 hour period of time calcium carb-mag ox-zinc gluc 333-133-5 mg tab Take 1 tablet by mouth twice daily. cholecalciferol, vitD3,/vit K2 (VITAMIN D3-VITAMIN K2) 125-90 mcg cap Take 1 capsule by mouth once daily. cyclobenzaprine (FLEXERIL) 10 mg tablet Take 1/2 to 1 full tablet three times daily as needed for back pain/spasm vitamin b complex capsule Take 1 capsule by mouth once daily. Ascorbic Acid (VITAMIN C) 1,000 mg tablet Take 1 tablet by mouth once daily. krill oil 500 mg cap Take 3 capsules by mouth once daily. naproxen (NAPROSYN) 500 mg tablet Take 1 tablet by mouth twice daily with meals. Allergies: ALLERGIES Allergen Reactions Seasonal Allergies Other: See Comments Sinus congestion ROS: See HPI PE: 06/18/23 1208 BP: 100/60 Pulse: 64 Resp: 16 Temp: 36.1 C (97 F) TempSrc: Left Tympanic Weight: 78 kg (172 lb) Height: 172 cm (5' 7.72) Gen: A&O, NAD, non-toxic appearing, Pleasant, cooperative HEENT: NT/AC, PERRLA, EOMs intact b/l, nares clear and patent b/l, pharynx without erythema, exudate or lesions. Uvula midline. MMM, EACs without erythema or debris. TMs pearly avitia with intact landmarks b/l. Neck: supple, No cervical LAD, no thyromegaly, no carotid bruits CV: RRR, normal S1 and S2, no murmurs, no gallops, no rubs, Pulses 2+ and symmetric in UE and LE b/l Lungs: normal respiratory effort, CTA b/l, no wheezing or rhonchi or rales Abd: soft, overweight, NT, ND, +BS, no hepatosplenomegaly MS: FROM all 4 extremities Neuro: CN II-XII intact b/l, strength 5/5 b/l UE and LE, DTRs 2/4 UE and LE, sensation intact. Skin: warm, dry, intact, seborrheic keratoses mid low back, actinic keratosis x 1 on right distal forearm dorsal ASSESSMENT/PLAN: 1. Well adult exam - ICD9: V70.0, ICD10: Z00.00 (primary diagnosis) - Counseled on healthy diet and regular exercise - COMP METABOLIC PANEL - CBC + DIFF - LIPID PANEL BASIC - HGB A1C - TSH BLD - T4 FREE/FREE THYROX - T3 FREE BLD - VITAMIN B12 BLOOD - VITAMIN D 25 HYDROXY - TESTOSTERONE, FREE AND TOTAL 2. Neck pain - ICD9: 723.1, ICD10: M54.2 Xray as ordered, labs as ordered, significant fam hx of spinal stenosis and DJD/DDD - XR CERV OTHER 4V AP/LAT/OBL - C-REACTIVE PROTEIN (CRP) 3. Fatigue, unspecified type - ICD9: 780.79, ICD10: R53.83 Labs as ordered, chronic - COMP METABOLIC PANEL - CBC + DIFF - TSH BLD - T4 FREE/FREE THYROX - T3 FREE BLD - VITAMIN B12 BLOOD - VITAMIN D 25 HYDROXY - TESTOSTERONE, FREE AND TOTAL 4. Screening for prostate cancer - ICD9: V76.44, ICD10: Z12.5 - Counseled on healthy diet and regular exercise - PSA/PROSTSPECAG SCRN 5. Incomplete emptying of bladder - ICD9: 788.21, ICD10: R33.9 - labs and UA as ordered, long standing - PSA/PROSTSPECAG SCRN - URINALYSIS, WITH MICROSCOPIC 6. Actinic keratosis - ICD9: 702.0, ICD10: L57.0 Treated x 1 on right forearm without complications, with cryotherapy, tolerated well 7. Seborrheic keratoses - ICD9: 702.19, ICD10: L82.1 D/w him that this is benign Nestor Juárez DO To ER if develops chest pain, shortness of breath, or severe worsening of symptoms. Discussed risks, benefits, alternatives, and potential side effects of medications. Patient expressed understanding and agreed with the plan. Nestor Juárez DO [address] [place] [address] documented in this encounter [facility] 05-04-2023 Miscellaneous Notes Patient has been identified by name and date of : Yes Requested Prescriptions Pending Prescriptions Disp Refills rosuvastatin (CRESTOR) 10 mg tablet 90 tablet 1 Sig: Take 1 tablet by mouth daily at bedtime. NOLBERTO:08/07/22 NOV:06/18/23 RX INSTRUCTIONS: Patient aware RX will be sent to pharmacy. No need to notify patient. Kalpana Colin documented in this encounter [facility] 04-30-2023 Miscellaneous Notes Patient phones requesting refills as follows: Requested Prescriptions Pending Prescriptions Disp Refills sildenafil (VIAGRA) 100 mg tablet 30 tablet 1 Sig: Take 1 tablet by mouth as needed (erectile dysfunction). Limit to only 1 tablet per 24 hour period of time NOLBERTO-08/07/22 Labs-08/07/22 NOV-12/11/23 Please review and advise. Dalia Lujan LPN documented in this encounter [facility] 03-05-2023 Miscellaneous Notes Nolberto--08/07/22 Nov--nothing scheduled Last refill--12/15/22 60 with 11 refills Last labs--04/05/22 documented in this encounter [facility] 08-31-2022 Miscellaneous Notes Nolberto--07/11/21 Nov--nothing scheduled Last refill--08/01/22 30 with 1 refill Last labs--04/05/22 documented in this encounter [facility] 08-09-2022 History of Present illness Narrative Radiology Service Progress Note PATIENT NAME: Israel Villar DATE OF SERVICE: August 09, 2022 TIME: 1:29 PM PATIENT IDENTITY VERIFICATION COMPLETED USING TWO (2) IDENTIFIERS: Name and Date of confirmed by patient verbally. FALL SCREENING: Has the patient had 2 falls in the last year or 1 fall with injury or currently using an Ambulatory Assistive Device (Walker, Cane, Wheelchair, Crutches, etc.)? No PATIENT GENDER DATA: Male PATIENT RELEVANT IMPLANT DATA REVIEWED: Not Applicable RADIOLOGY DEPARTMENT: Ultrasound PERIPHERAL IV DATA: Not applicable SIGNED BY: Keeley Moran RDMS August 09, 2022 1:29 PM documented in this encounter [facility] 08-09-2022 History of Present illness Narrative Radiology Service Progress Note PATIENT NAME: Israel Villar DATE OF SERVICE: August 09, 2022 TIME: 12:16 PM PATIENT IDENTITY VERIFICATION COMPLETED USING TWO (2) IDENTIFIERS: Name and Date of confirmed by patient verbally. FALL SCREENING: Has the patient had 2 falls in the last year or 1 fall with injury or currently using an Ambulatory Assistive Device (Walker, Cane, Wheelchair, Crutches, etc.)? No PATIENT GENDER DATA: Male PATIENT RELEVANT IMPLANT DATA REVIEWED: Not Applicable RADIOLOGY DEPARTMENT: General X-ray: Exam(s) Completed: Spine X-Ray(s): Lumbar AP / LAT / L5-S1 Pelvis X-Ray: Pelvis with Hip Right PERIPHERAL IV DATA: Not applicable SIGNED BY: RT Dane(R) August 09, 2022 12:16 PM documented in this encounter [facility] 08-07-2022 History of Present illness Narrative CC: Israel Villar is a 47 year old male who presents to the office for back pain HPI: Low back pain, present the last few weeks, states that the pain is in his area of the Right low back pain radiating into right groin and hip anteriorly, feels deep in the pelvis, rotating back and forth. Doesn't remember anything that he did to cause the symptoms but does admit to heavy lifting regularly at his home gym. Does also admit to some burning sensation after intercourse when he urinates but denies any hematuria or flank pain or fevers or chills. No bowel changes, gets symptoms into buttock and mild right posterior thigh Elevated LFTs, mild RUQ Abdominal discomfort, comes and goes x months. No vomiting or nausea, no fevers or chills. PAST MEDICAL HISTORY Diagnosis Date ED (erectile dysfunction) of non-organic origin Hyperlipemia lazy eye Low back pain PAST SURGICAL HISTORY Procedure Laterality Date COLONOSCOPY FLX DX W/COLLJ SPEC WHEN PFRMD 03/02/2014 Colonoscopy COLONOSCOPY FLX DX W/COLLJ SPEC WHEN PFRMD 02/16/2020 Colonoscopy HERNIA REPAIR HX age 4 and 12 2 inguinal hernia repairs Social History: Social History Tobacco Use Smoking status: Never Smokeless tobacco: Never Vaping Use Vaping Use: Never used Substance Use Topics Alcohol use: No Drug use: No FAMILY HISTORY Problem Relation Age of Onset Colon Cancer Mother 44 at 44 with this. Cancer Father 68 Kidney 68 Diabetes Maternal Grandfather Cancer Maternal Grandfather Cancer Paternal Grandfather Cervical Cancer Sister abnormal pap Current Outpatient prescriptions: sildenafil (VIAGRA) 100 mg tablet Take 1 tablet by mouth as needed (erectile dysfunction). Limit to only 1 tablet per 24 hour period of time cyclobenzaprine (FLEXERIL) 10 mg tablet Take 1/2 to 1 full tablet three times daily as needed for back pain/spasm rosuvastatin (CRESTOR) 10 mg tablet Take 1 tablet by mouth daily at bedtime. cholecalciferol, vitD3,/vit K2 (VITAMIN D3-VITAMIN K2) 125-90 mcg cap Take 1 capsule by mouth once daily. vitamin b complex capsule Take 1 capsule by mouth once daily. Ascorbic Acid (VITAMIN C) 1,000 mg tablet Take 1 tablet by mouth once daily. calcium carb-mag ox-zinc gluc 333-133-5 mg tab Take 1 tablet by mouth twice daily. krill oil 500 mg cap Take 3 capsules by mouth once daily. naproxen (NAPROSYN) 500 mg tablet Take 1 tablet by mouth twice daily with meals. Allergies: ALLERGIES Allergen Reactions Seasonal Allergies Other: See Comments Sinus congestion ROS: See HPI PE: 08/07/22 1028 BP: 100/60 Pulse: 64 Resp: 16 Temp: 37.1 C (98.8 F) TempSrc: Right Tympanic Weight: 79.8 kg (176 lb) Gen: A&O, NAD, non-toxic appearing, Pleasant, cooperative HEENT: NT/AC, PERRLA, EOMs intact b/l, nares clear and patent b/l, pharynx without erythema, exudate or lesions. Uvula midline. EACs without erythema or debris. TMs pearly avitia with intact landmarks b/l. Neck: supple, No cervical LAD, no thyromegaly, no carotid bruits CV: RRR, normal S1S2, no murmurs, no gallops, no rubs, Pulses 2+ and symmetric in UE and LE b/l Lungs: normal respiratory effort, CTA b/l, no wheezing or rhonchi or rales Abd: soft, NT, ND, +BS, no hepatosplenomegaly MS: reduced ROM lumbar spine with decreased flexion and extension due to discomfort, no spinal TTP Neuro: CN II-XII intact b/l, strength 5/5 b/l UE and LE, DTRs 2/4 UE and LE, sensation intact. Skin: warm, dry, intact, No rashes or lesions on exposed skin. No edema, normal pulses ASSESSMENT/PLAN: 1. Right hip pain - ICD9: 719.45, ICD10: M25.551 (primary diagnosis) Xrays as ordered, UA as ordered due to mild urinary intermittent symptoms, no signs of kidney stone with symptoms otherwise. Supportive care with heating pad and ice use intermittently and NSAID as needed. - URINALYSIS, WITH MICROSCOPIC - XR LUMBAR GENERAL 3V AP/LAT/L5-S1 - XR HIP GENERAL 3V PELV/AP/LAT RIGHT 2. Acute right-sided low back pain with right-sided sciatica - ICD9: 724.2, 724.3, ICD10: M54.41 Xrays as ordered, UA as ordered due to mild urinary intermittent symptoms, no signs of kidney stone with symptoms otherwise. Supportive care with heating pad and ice use intermittently and NSAID as needed. - URINALYSIS, WITH MICROSCOPIC - XR LUMBAR GENERAL 3V AP/LAT/L5-S1 - XR HIP GENERAL 3V PELV/AP/LAT RIGHT 3. Elevated LFTs - ICD9: 790.6, ICD10: R79.89 Recheck RUQ US - US ABD RT UPPER QUADRANT 4. RUQ abdominal pain - ICD9: 789.01, ICD10: R10.11 Recheck RUQ US - US ABD RT UPPER QUADRANT Nestor Juárez DO To ER if develops chest pain, shortness of breath, or severe worsening of symptoms. Discussed risks, benefits, alternatives, and potential side effects of medications. Patient expressed understanding and agreed with the plan. Nestor Juárez DO [address] [place] [address] documented in this encounter [facility] 08-02-2022 Miscellaneous Notes See message from pt. Pt asking for lab order to be placed for upcoming appt on Sunday with PCP to address burning soreness with erection. Please advise. Update pt if you want him to complete prior to visit or wait til visit. Liliana Geronimo Ma documented in this encounter [facility] 08-01-2022 Miscellaneous Notes Patient has been identified by name and date of : Yes, Provider Dr. Juárez Date 08/01/22 Time 12:16 pm Patient phones for refill(s): Requested Prescriptions Pending Prescriptions Disp Refills sildenafil (VIAGRA) 100 mg tablet 30 tablet 1 Sig: Take 1 tablet by mouth as needed (erectile dysfunction). Limit to only 1 tablet per 24 hour period of time Date of last office visit in primary care: 07/28/22 next apt 08/07/22 Last 2 Encounter Wt Readings: Date: Wt: 07/28/2022 79.9 kg (176 lb 3.2 oz) 03/28/2022 76.2 kg (168 lb) Previous labs/tests for medication: Not applicable Thank you. Pat Cox LPN documented in this encounter [facility] 07-28-2022 Instructions Jey Wright APRN.NEDRA - 07/28/2022 8:02 AM EST Use moist heat (hot water bottle, rice sock) at least 4 times daily for 20 minutes at a time. Hold of on significant activity or strenuous activity for the next 5 days. Use the Flexeril 1/2-1 tablet every 3 hours as needed for back pain/spasm. Stretch. Hot baths with Epsom salts. Let us know if no improvement by the middle of next week. documented in this encounter [facility] 07-28-2022 History of Present illness Narrative Chief Complaint Patient presents with: Back Pain: Lower back radiates into right hip x 1 week HPI Israel Villar is a 47 year old male who presents here today for Above Complaints.. Today: This happens every year or so, but is lasting longer than typically-usually 3 days, is 9-10 days now. Works out every day, lifts heavy 3x per week. Middle lower back hurt for a few days. 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 Did spread down to his right buttock but this seems to have resolved. Ice and heat-temporarily. Stretching makes it tolerable. If sitting and stationary is when it hurts. Past medical history, appointments, medications, allergies reviewed. Previous Medical History PAST MEDICAL HISTORY Diagnosis Date ED (erectile dysfunction) of non-organic origin Hyperlipemia lazy eye Low back pain Previous Surgical History PAST SURGICAL HISTORY Procedure Laterality Date COLONOSCOPY FLX DX W/COLLJ SPEC WHEN PFRMD 03/02/2014 Colonoscopy COLONOSCOPY FLX DX W/COLLJ SPEC WHEN PFRMD 02/16/2020 Colonoscopy HERNIA REPAIR HX age 4 and 12 2 inguinal hernia repairs Family History FAMILY HISTORY Problem Relation Age of Onset Colon Cancer Mother 44 at 44 with this. Cancer Father 68 Kidney 68 Diabetes Maternal Grandfather Cancer Maternal Grandfather Cancer Paternal Grandfather Cervical Cancer Sister abnormal pap Patient Allergies ALLERGIES Allergen Reactions Seasonal Allergies Other: See Comments Sinus congestion Current Medications Current Outpatient Medications on File Prior to Visit Medication Sig sildenafil (VIAGRA) 100 mg tablet Take 1 tablet by mouth as needed (erectile dysfunction). Limit to only 1 tablet per 24 hour period of time rosuvastatin (CRESTOR) 10 mg tablet Take 1 tablet by mouth daily at bedtime. cholecalciferol, vitD3,/vit K2 (VITAMIN D3-VITAMIN K2) 125-90 mcg cap Take 1 capsule by mouth once daily. vitamin b complex capsule Take 1 capsule by mouth once daily. Ascorbic Acid (VITAMIN C) 1,000 mg tablet Take 1 tablet by mouth once daily. calcium carb-mag ox-zinc gluc 333-133-5 mg tab Take 1 tablet by mouth twice daily. krill oil 500 mg cap Take 3 capsules by mouth once daily. naproxen (NAPROSYN) 500 mg tablet Take 1 tablet by mouth twice daily with meals. No current facility-administered medications on file prior to visit. Social History Social History Tobacco Use Smoking status: Never Smokeless tobacco: Never Vaping Use Vaping Use: Never used Substance Use Topics Alcohol use: No Drug use: No Review of Symptoms REVIEW OF SYSTEMS See HPI, otherwise negative EXAM: BP 124/82 (BP Site: Left Arm, BP Position: Sitting, BP Cuff Size: Regular Adult) Pulse 71 Resp 16 Wt 79.9 kg (176 lb 3.2 oz) SpO2 95% BMI 27.98 kg/m General Appearance: Well appearing, alert, in no acute distress, well-hydrated, well nourished.. Back:motor and sensory appear to be normal. Slightly decreased general back ROM, lumbar spine and to bilateral sides tender to palpation Lungs: Lungs clear to auscultation. No wheezing, rhonchi, rales.. Heart: RRR without murmur, gallop, or rubs. No ectopy. Health Maintenance List HEPATITIS B(1 of 3 - 3-dose series) Never done HIV SCREENING Never done DEPRESSION ASSESSMENT Never done INFLUENZA(1) due on 01/05/2023 COVID-19 VACCINE(1) due on 03/28/2023 COLORECTAL CANCER SCREENING due on 02/15/2025 DIABETES SCREEN due on 04/05/2025 LIPID SCREEN due on 03/23/2027 DTAP,TDAP,TD(2 - Td or Tdap) due on 04/13/2031 HEPATITIS C SCREENING Completed Data reviewed Previous records, office notes ASSESSMENT/PLAN: 1. Acute midline low back pain with right-sided sciatica - ICD9: 724.2, 724.3, ICD10: M54.41 Mechanical low back pain - Ice for localized tenderness - Warm moist heat for 20 min three times a day - Muscle relaxant- see orders - Follow up in 1-2 weeks or sooner if symptoms persist or worsen Declines Toradol injection or steroid Hot baths with Epsom salts. Stretching. Hold for at least 5 days on any type of strenuous or significant activity to rest back. - CYCLOBENZAPRINE 10 MG TABLET Jey Wright APRN.NEDRA documented in this encounter [facility] 04-24-2022 Miscellaneous Notes Images from the original note were not included. message change to TE per provider's request. Pended medications. Pharmacy verified. documented in this encounter [facility] 04-24-2022 Miscellaneous Notes PLEASE SEE TE 04/24/22. documented in this encounter [facility] 04-19-2022 Miscellaneous Notes Nolberto--03/28/22 Nov--not scheduled Last refill--03/28/22 30 with 0 refills Last labs--04/05/22 documented in this encounter [facility] 02-09-2022 Miscellaneous Notes Patient last visit with PCP 03/08/2021 Follow up appointment scheduled none Danna Chahal Ma documented in this encounter [facility] 12-08-2021 Miscellaneous Notes Patient phones requesting refills as follows: Pending Prescriptions Disp Refills SILDENAFIL 100 MG TABLET 30 tablet 1 Sig: Take 1 tablet by mouth as needed (erectile dysfunction). Limit to only 1 tablet per 24 hour period of time VICENTE: No NOLBERTO-09/02/21 Labs-09/02/21 NOV-none med filled 10/26/21 Please review and advise. Dalia Lujan LPN documented in this encounter [facility] 10-25-2021 Miscellaneous Notes Patient has been identified by name and date of : Yes Patient phones for refill(s): Pending Prescriptions Disp Refills SILDENAFIL 100 MG TABLET 30 tablet 1 Sig: Take 1 tablet by mouth as needed (erectile dysfunction). Limit to only 1 tablet per 24 hour period of time VICENTE: No Date of last office visit in primary care: OV on 03/08/2021 No appointment scheduled Last 2 Encounter Wt Readings: Date: Wt: 03/08/2021 73.5 kg (162 lb) 06/07/2020 70.8 kg (156 lb) Please advise. Thank you. TEE Arnold documented in this encounter [facility] 09-12-2021 Miscellaneous Notes VM left with pt that rx sent to pharmacy The following approved medication requests have been transmitted electronically. Signed Prescriptions Disp Refills rosuvastatin (CRESTOR) 10 mg tablet 90 tablet 1 Sig: Take 1 tablet by mouth daily at bedtime. Authorizing Provider: NESTOR JUÁREZ Ma The following approved medication requests have been transmitted electronically. Signed Prescriptions Disp Refills rosuvastatin (CRESTOR) 10 mg tablet 90 tablet 1 Sig: Take 1 tablet by mouth daily at bedtime. Authorizing Provider: NESTOR JUÁREZ DO Pt notified and verbalized understanding. Pt reports he has been taking T-hero supplement for testosterone. Please send Crestor 10mg to [facility] in [place]. Madina Landers Ma Please inform patient that his testosterone levels are at 495 in a normal range but slightly lower than his previous levels. Liver enzymes are normal except for slight elevated AST at 44. Cholesterol total and LDL remains slightly elevated but still better than levels 1 year ago. LDL is at 147, would like this <100. Would he like to consider starting low dose cholesterol medication crestor 10 mg a day? Needs to follow a low cholesterol diet. Can also consider seeing Drive Thru Order Taker. Nestor Juárez DO documented in this encounter [facility] 07-22-2020 History of Past i llness Narrative Problem Noted Date Resolved Date Pilar cyst 07/22/2020 07/22/2020 documented as of this encounter (statuses as of 10/21/2021) [facility] History of Past illness Narrative* Problem Noted Date Resolved Date Pilar cyst 07/22/2020 07/22/2020 documented as of this encounter (statuses as of 10/26/2021) [facility] History of Past illness Narrative* Problem Noted Date Resolved Date Pilar cyst 07/22/2020 07/22/2020 documented as of this encounter (statuses as of 12/08/2021) [facility] History of Past illness Narrative* Problem Noted Date Resolved Date Pilar cyst 07/22/2020 07/22/2020 documented as of this encounter (statuses as of 02/09/2022) [facility] History of Past illness Narrative* Problem Noted Date Resolved Date Pilar cyst 07/22/2020 07/22/2020 documented as of this encounter (statuses as of 04/19/2022) [facility] of Past illness Narrative* Problem Noted Date Resolved Date Pilar cyst 07/22/2020 07/22/2020 documented as of this encounter (statuses as of 04/24/2022) [facility] of Past illness Narrative* Problem Noted Date Resolved Date Pilar cyst 07/22/2020 07/22/2020 documented as of this encounter (statuses as of 04/24/2022) [facility] History of Past illness Narrative* Problem Noted Date Resolved Date Pilar cyst 07/22/2020 07/22/2020 documented as of this encounter (statuses as of 07/28/2022) [facility] History of Past illness Narrative* Problem Noted Date Resolved Date Pilar cyst 07/22/2020 07/22/2020 documented as of this encounter (statuses as of 08/01/2022) [facility] History of Past illness Narrative* Problem Noted Date Resolved Date Pilar cyst 07/22/2020 07/22/2020 documented as of this encounter (statuses as of 08/02/2022) [address]14-2021 History of Past illness Narrative* Problem Noted Date Resolved Date Pilar cyst 07/22/2020 07/22/2020 documented as of this encounter (statuses as of 08/08/2022) [address]-2021 History of Past illness Narrative* Problem Noted Date Resolved Date Pilar cyst 07/22/2020 07/22/2020 documented as of this encounter (statuses as of 08/31/2022) [address]-2021 History of Past illness Narrative* Problem Noted Date Diagnosed Date Resolved Date Pilar cyst 07/22/2020 07/22/2020 documented as of this encounter (statuses as of 03/06/2023) [address]-2021 History of Past illness Narrative* Problem Noted Date Diagnosed Date Resolved Date Pilar cyst 07/22/2020 07/22/2020 documented as of this encounter (statuses as of 05/01/2023) [address]14-2021 History of Past illness Narrative* Problem Noted Date Diagnosed Date Resolved Date Pilar cyst 07/22/2020 07/22/2020 documented as of this encounter (statuses as of 05/04/2023) [address]14-2021 History of Past illness Narrative* Problem Noted Date Diagnosed Date Resolved Date Pilar cyst 07/22/2020 07/22/2020 documented as of this encounter (statuses as of 05/14/2023) [address]-2021 History of Past illness Narrative* Problem Noted Date Diagnosed Date Resolved Date Pilar cyst 07/22/2020 07/22/2020 documented as of this encounter (statuses as of 05/14/2023) [address]14-2021 History of Past illness Narrative* Problem Noted Date Diagnosed Date Resolved Date Pilar cyst 07/22/2020 07/22/2020 documented as of this encounter (statuses as of 06/19/2023) [address]-2021 History of Past illness Narrative* Problem Noted Date Diagnosed Date Resolved Date Pilar cyst 07/22/2020 07/22/2020 documented as of this encounter (statuses as of 08/23/2023) 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 [facility] Diagnosis ED (erectile 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 [facility] Diagnosis ED (erectile 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 [facility] Diagnosis ED (erectile 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 Dyslipidemia Other and unspecified hyperlipidemia [facility] Diagnosis Acute midline low back pain with right-sided sciatica- Primary [facility] Diagnosis ED (erectile 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 [facility] Diagnosis ED (erectile dysfunction) of organic origin- Primary Impotence of organic origin [facility] Diagnosis Right hip pain- Primary Pain in joint, pelvic region and thigh Acute right-sided low back pain with right-sided sciatica Elevated LFTs Other abnormal blood chemistry RUQ abdominal pain Abdominal pain, right upper quadrant [facility] Diagnosis ED (erectile 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 [facility] Diagnosis ED (erectile 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 [facility] Diagnosis ED (erectile 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 [facility] Diagnosis Right hip pain Pain in joint, pelvic region and thigh Acute right-sided low back pain with right-sided sciatica [facility] Diagnosis Elevated LFTs Other abnormal blood chemistry RUQ abdominal pain Abdominal pain, right upper quadrant [facility] Diagnosis Well adult exam- Primary Routine general medical examination at a health care facility Neck pain Cervicalgia Fatigue, unspecified type Screening for prostate cancer Special screening for malignant neoplasm of prostate Incomplete emptying of bladder Incomplete bladder emptying Actinic keratosis Seborrheic keratoses Other seborrheic keratosis [facility] Diagnosis ED (erectile 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 [facility] in this 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 for referral (narrative)* Diagnostic Procedure Only (Routine) - Authorized Specialty Diagnoses / Procedures Referred By Konrad mederos Referred To Contact US IMAGING Diagnoses Elevated LFTs RUQ abdominal pain Procedures US ABD RT UPPER QUADRANT US ABDOMINAL REAL TIME W/IMAGE LIMITED Nestor Juárez DO [address] [place] [address] Us Imaging Referral ID Status Reason Start Date Expiration Date Visits Requested Visits Authorized [id number] Authorized Auto-Generat ed Referral 08/07/2022 09/06/2023 1 1 * Diagnostic Procedure Only (Routine) - Pending Review Specialty Diagnoses / Procedures Referred By Contac t Referred To Contact XR IMAGING Diagnoses Right hip pain Acute right-sided low back pain with right-sided sciatica Procedures XR HIP GENERAL 3V PELV/AP/LAT RIGHT RADEX HIP UNILATERAL WITH PELVIS 2-3 VIEWS Nestor Juárez DO [address] [place] [address] Xr Imaging Referral ID Status Reason Start Date Expiration Date Visits Requested Visits Authorized [id number] Pending Review Auto-Generat ed Referral 08/07/2022 09/06/2023 1 1 * Diagnostic Procedure Only (Routine) - Pending Review Specialty Diagnoses / Procedures Referred By Contac t Referred To Contact XR IMAGING Diagnoses Right hip pain Acute right-sided low back pain with right-sided sciatica Procedures XR LUMBAR GENERAL 3V AP/LAT/L5-S1 RADEX SPINE LUMBOSACRAL 2/3 VIEWS Nestor Juárez DO [address] [place] [address] Xr Imaging Referral ID Status Reason Start Date Expiration Date Visits Requested Visits Authorized [id number] Pending Review Auto-Generat ed Referral 08/07/2022 09/06/2023 1 1 [facility] Diagnostic Procedure Only (Routine) - Closed Specialty Diagnoses / Procedures Referred By Contac t Referred To Contact XR IMAGING Diagnoses Right hip pain Acute right-sided low back pain with right-sided sciatica Procedures XR HIP GENERAL 3V PELV/AP/LAT RIGHT RADEX HIP UNILATERAL WITH PELVIS 2-3 VIEWS Nestor Juárez DO [address] [place] [address] [place] [address] Referral ID Status Reason Start Date Expiration Date V isits Requested Visits Authorized [id number] Closed Auto-Generate d Referral 08/07/2022 09/06/2023 1 1 * Diagnostic Procedure Only (Routine) - Closed Specialty Diagnoses / Procedures Referred By Contac t Referred To Contact XR IMAGING Diagnoses Right hip pain Acute right-sided low back pain with right-sided sciatica Procedures XR LUMBAR GENERAL 3V AP/LAT/L5-S1 RADEX SPINE LUMBOSACRAL 2/3 VIEWS Netsor Juárez DO [address] [place] [address] [place] [address] Referral ID Status Reason Start Date Expiration Date V isits Requested Visits Authorized [id number] Closed Auto-Generate d Referral 08/07/2022 09/06/2023 1 1 [facility] for referral (narrative)* Diagnostic Procedure Only (Routine) - Closed Specialty Diagnoses / Procedures Referred By Contac t Referred To Contact US IMAGING Diagnoses Elevated LFTs RUQ abdominal pain Procedures US ABD RT UPPER QUADRANT US ABDOMINAL REAL TIME W/IMAGE LIMITED Nestor Juárez DO [address] [place] [address] [place] [address] Referral ID Status Reason Start Date Expiration Date V isits Requested Visits Authorized [id number] Closed Auto-Generate d Referral 08/07/2022 09/06/2023 1 1 [facility] for referral (narrative)* Diagnostic Procedure Only (Routine) - Pending Review Specialty Diagnoses / Procedures Referred By Contac t Referred To Contact XR IMAGING Diagnoses Neck pain Procedures XR CERV OTHER 4V AP/LAT/OBL RADEX SPINE CERVICAL 4 OR 5 VIEWS Nestor Juárez, DO [address] [place] [address] [place] [address] Referral ID Status Reason Start Date Expiration Date Visits Requested Visits Authorized [id number] Pending Review Auto-Generat ed Referral 3 07/17/2024 1 1 [facility] for visit Narrative* Diagnostic Procedure Only (Routine) - Closed Specialty Diagnoses / Procedures Referred By Contac t Referred To Contact XR IMAGING Diagnoses Right hip pain Acute right-sided low back pain with right-sided sciatica Procedures XR HIP GENERAL 3V PELV/AP/LAT RIGHT RADEX HIP UNILATERAL WITH PELVIS 2-3 VIEWS Nestor Juárez, DO [address] [facility] [place] [address] [place] [address] Referral ID Status Reason Start Date Expiration Date V isits Requested Visits Authorized [id number] Closed Auto-Generate d Referral 08/07/2022 09/06/2023 1 1 [facility] Summary Purpose Family History No Family History Records FoundNo Family History Records Found Advance Directives No Advanced Directives Records FoundDocuments on File Type Date Recorded 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 Advance Directive(s) 07/22/2020 10:59 AM Advance Directive(s) 02/16/2020 8:54 AM Additional Source Comments (unrecognized sect ion and content) No Status Records FoundNo Status Records Found INFORMATION SOURCE (unrecogn ized section and content) DATE CREATED AUTHOR 01/10/2018 [facility] DATE CREATED AUTHOR AUTHOR'S ORGANIZ ATION 03/19/2025 [facility] Source Comments (unrecognize d section and content) In the event this informatio n is protected by the Federal Confidentiality of Alcohol and Drug Abuse Patient Records regulations: The Federal rules restrict any use of the information to criminally investigate or prosecute any alcohol or drug abuse patient.[facility] the event this information is protected by the Federal Confidentiality of Alcohol and Drug Abuse Patient Records regulations: The Federal rules restrict any use of the information to criminally investigate or prosecute any alcohol or drug abuse patient.[facility] the event this information is protected by the Federal Confidentiality of Alcohol and Drug Abuse Patient Records regulations: The Federal rules restrict any use of the information to criminally investigate or prosecute any alcohol or drug abuse patient.[facility] the event this information is protected by the Federal Confidentiality of Alcohol and Drug Abuse Patient Records regulations: The Federal rules restrict any use of the information to criminally investigate or prosecute any alcohol or drug abuse patient.[facility] the event this information is protected by the Federal Confidentiality of Alcohol and Drug Abuse Patient Records regulations: The Federal rules restrict any use of the information to criminally investigate or prosecute any alcohol or drug abuse patient.[facility] the event this information is protected by the Federal Confidentiality of Alcohol and Drug Abuse Patient Records regulations: The Federal rules restrict any use of the information to criminally investigate or prosecute any alcohol or drug abuse patient.[facility] the event this information is protected by the Federal Confidentiality of Alcohol and Drug Abuse Patient Records regulations: The Federal rules restrict any use of the information to criminally investigate or prosecute any alcohol or drug abuse patient.[facility] the event this information is protected by the Federal Confidentiality of Alcohol and Drug Abuse Patient Records regulations: The Federal rules restrict any use of the information to criminally investigate or prosecute any alcohol or drug abuse patient.[facility] the event this information is protected by the Federal Confidentiality of Alcohol and Drug Abuse Patient Records regulations: The Federal rules restrict any use of the information to criminally investigate or prosecute any alcohol or drug abuse patient.[facility] the event this information is protected by the Federal Confidentiality of Alcohol and Drug Abuse Patient Records regulations: The Federal rules restrict any use of the information to criminally investigate or prosecute any alcohol or drug abuse patient.[facility] the event this information is protected by the Federal Confidentiality of Alcohol and Drug Abuse Patient Records regulations: The Federal rules restrict any use of the information to criminally investigate or prosecute any alcohol or drug abuse patient.[facility] the event this information is protected by the Federal Confidentiality of Alcohol and Drug Abuse Patient Records regulations: The Federal rules restrict any use of the information to criminally investigate or prosecute any alcohol or drug abuse patient.[facility] HospitalIn the event this information is protected by the Federal Confidentiality of Alcohol and Drug Abuse Patient Records regulations: The Federal rules restrict any use of the information to criminally investigate or prosecute any alcohol or drug abuse patient.[facility] HospitalIn the event this information is protected by the Federal Confidentiality of Alcohol and Drug Abuse Patient Records regulations: The Federal rules restrict any use of the information to criminally investigate or prosecute any alcohol or drug abuse patient.[facility] HospitalIn the event this information is protected by the Federal Confidentiality of Alcohol and Drug Abuse Patient Records regulations: The Federal rules restrict any use of the information to criminally investigate or prosecute any alcohol or drug abuse patient.[facility] HospitalIn the event this information is protected by the Federal Confidentiality of Alcohol and Drug Abuse Patient Records regulations: The Federal rules restrict any use of the information to criminally investigate or prosecute any alcohol or drug abuse patient.[facility] HospitalIn the event this information is protected by the Federal Confidentiality of Alcohol and Drug Abuse Patient Records regulations: The Federal rules restrict any use of the information to criminally investigate or prosecute any alcohol or drug abuse patient.[facility] HospitalIn the event this information is protected by the Federal Confidentiality of Alcohol and Drug Abuse Patient Records regulations: The Federal rules restrict any use of the information to criminally investigate or prosecute any alcohol or drug abuse patient.[facility] HospitalIn the event this information is protected by the Federal Confidentiality of Alcohol and Drug Abuse Patient Records regulations: The Federal rules restrict any use of the information to criminally investigate or prosecute any alcohol or drug abuse patient.[facility] HospitalIn the event this information is protected by the Federal Confidentiality of Alcohol and Drug Abuse Patient Records regulations: The Federal rules restrict any use of the information to criminally investigate or prosecute any alcohol or drug abuse patient.[facility] HospitalIn the event this information is protected by the Federal Confidentiality of Alcohol and Drug Abuse Patient Records regulations: The Federal rules restrict any use of the information to criminally investigate or prosecute any alcohol or drug abuse patient.[facility] HospitalIn the event this information is protected by the Federal Confidentiality of Alcohol and Drug Abuse Patient Records regulations: The Federal rules restrict any use of the information to criminally investigate or prosecute any alcohol or drug abuse patient.[facility] HospitalIn the event this information is protected by the Federal Confidentiality of Alcohol and Drug Abuse Patient Records regulations: The Federal rules restrict any use of the information to criminally investigate or prosecute any alcohol or drug abuse patient.[facility] HospitalIn the event this information is protected by the Federal Confidentiality of Alcohol and Drug Abuse Patient Records regulations: The Federal rules restrict any use of the information to criminally investigate or prosecute any alcohol or drug abuse patient.[facility] HospitalIn the event this information is protected by the Federal Confidentiality of Alcohol and Drug Abuse Patient Records regulations: The Federal rules restrict any use of the information to criminally investigate or prosecute any alcohol or drug abuse patient.[facility] HospitalIn the event this information is protected by the Federal Confidentiality of Alcohol and Drug Abuse Patient Records regulations: The Federal rules restrict any use of the information to criminally investigate or prosecute any alcohol or drug abuse patient.[facility] HospitalIn the event this information is protected by the Federal Confidentiality of Alcohol and Drug Abuse Patient Records regulations: The Federal rules restrict any use of the information to criminally investigate or prosecute any alcohol or drug abuse patient.[facility] HospitalIn the event this information is protected by the Federal Confidentiality of Alcohol and Drug Abuse Patient Records regulations: The Federal rules restrict any use of the information to criminally investigate or prosecute any alcohol or drug abuse patient.[facility] HospitalIn the event this information is protected by the Federal Confidentiality of Alcohol and Drug Abuse Patient Records regulations: The Federal rules restrict any use of the information to criminally investigate or prosecute any alcohol or drug abuse patient.[facility] HospitalIn the event this information is protected by the Federal Confidentiality of Alcohol and Drug Abuse Patient Records regulations: The Federal rules restrict any use of the information to criminally investigate or prosecute any alcohol or drug abuse patient.[facility] HospitalIn the event this information is protected by the Federal Confidentiality of Alcohol and Drug Abuse Patient Records regulations: The Federal rules restrict any use of the information to criminally investigate or prosecute any alcohol or drug abuse patient.[facility] HospitalIn the event this information is protected by the Federal Confidentiality of Alcohol and Drug Abuse Patient Records regulations: The Federal rules restrict any use of the information to criminally investigate or prosecute any alcohol or drug abuse patient.[facility] HospitalIn the event this information is protected by the Federal Confidentiality of Alcohol and Drug Abuse Patient Records regulations: The Federal rules restrict any use of the information to criminally investigate or prosecute any alcohol or drug abuse patient.[facility] HospitalIn the event this information is protected by the Federal Confidentiality of Alcohol and Drug Abuse Patient Records regulations: The Federal rules restrict any use of the information to criminally investigate or prosecute any alcohol or drug abuse patient.[facility] HospitalIn the event this information is protected by the Federal Confidentiality of Alcohol and Drug Abuse Patient Records regulations: The Federal rules restrict any use of the information to criminally investigate or prosecute any alcohol or drug abuse patient.[facility] HospitalIn the event this information is protected by the Federal Confidentiality of Alcohol and Drug Abuse Patient Records regulations: The Federal rules restrict any use of the information to criminally investigate or prosecute any alcohol or drug abuse patient.[facility] HospitalIn the event this information is protected by the Federal Confidentiality of Alcohol and Drug Abuse Patient Records regulations: The Federal rules restrict any use of the information to criminally investigate or prosecute any alcohol or drug abuse patient.[facility] HospitalIn the event this information is protected by the Federal Confidentiality of Alcohol and Drug Abuse Patient Records regulations: The Federal rules restrict any use of the information to criminally investigate or prosecute any alcohol or drug abuse patient.[facility] HospitalIn the event this information is protected by the Federal Confidentiality of Alcohol and Drug Abuse Patient Records regulations: The Federal rules restrict any use of the information to criminally investigate or prosecute any alcohol or drug abuse patient.[facility] HospitalIn the event this information is protected by the Federal Confidentiality of Alcohol and Drug Abuse Patient Records regulations: The Federal rules restrict any use of the information to criminally investigate or prosecute any alcohol or drug abuse patient.[facility] HospitalIn the event this information is protected by the Federal Confidentiality of Alcohol and Drug Abuse Patient Records regulations: The Federal rules restrict any use of the information to criminally investigate or prosecute any alcohol or drug abuse patient.[facility] Reason for Visit (unrecogniz ed section and content) Reason Comments Results Reason Onset Date Comments Refill Request 10/25/2021 Reason Onset Date Comments Refill Request 12/07/2021 Reason Onset Date Comments Refill Request 02/09/2022 Reason Onset Date Comments Refill Request 04/19/2022 Reason Onset Date Comments Refill Request 04/24/2022 Transfer meds fr [facility] Reason Comments Back Pain Lower back radiates into right hip x 1 week Reason Onset Date Comments Refill Request 08/01/2022 Reason Comments Low Back Pain radiating to the rig ht hip x 5 days Reason Onset Date Comments Refill Request 08/31/2022 Reason Onset Date Comments Refill Request 03/04/2023 Reason Onset Date Comments Refill Request 04/30/2023 Reason Onset Date Comments Refill Request 05/03/2023 Reason Comments Radiology US Specialty Diagnoses / Procedures Referred By Konrad mederos Referred To Contact US IMAGING Diagnoses Elevated LFTs RUQ abdominal pain Procedures US ABD RT UPPER QUADRANT US ABDOMINAL REAL TIME W/IMAGE LIMITED Nestor Juárez, DO [address] [place] [address] [facility] [place] [id number] Referral ID Status Reason Start Date Expiration Date V isits Requested Visits Authorized [id number] Closed Auto-Generate d Referral 08/07/2022 09/06/2023 1 1 Reason Comments Yearly Exam Reason Onset Date Comments Refill Request 08/23/2023 Reason Onset Date Comments Refill Request 10/31/2023 Reason Onset Date Comments Refill Request 11/20/2023 Reason Onset Date Comments Refill Request 01/16/2024 Reason Comments spots on hands and arms getting daker an d biggr Reason Onset Date Comments Refill Request 03/24/2024 Reason Comments Yearly Exam Reason Onset Date Comments Refill Request 05/29/2024 Reason Onset Date Comments Refill Request 06/30/2024 Reason Onset Date Comments Refill Request 08/08/2024 Reason Comments Back Pain Reason Onset Date Comments Refill Request 10/19/2024 Reason Onset Date Comments Refill Request 12/30/2024 Reason Onset Date Comments Refill Request 01/29/2025 Reason Onset Date Comments Refill Request 03/04/2025 Reason Onset Date Comments Refill Request 03/05/2025 Reason Comments Consult Reason Comments Depression Care Teams (unrecognized sec tion and content) Double Back Operator Relationship Specialty Start Date End Date Nestor Juárez, DO [address] [place] [address] PCP - General Family Practice 11/25/13 Double Back Operator Relationship Specialty Start Date End Date Nestor Juárez, DO [address] [place] [address] PCP - General Family Practice 11/25/13 Double Back Operator Relationship Specialty Start Date End Date Nestor Juárez, DO [address] [place] [address] PCP - General Family Medicine 11/25/13 Double Back Operator Relationship Specialty Start Date End Date Nestor Juárez, DO [address] [place] [address] PCP - General Family Medicine 11/25/13 Double Back Operator Relationship Specialty Start Date End Date Nestor Juárez, DO [address] [place] [address] PCP - General Family Medicine 11/25/13 Double Back Operator Relationship Specialty Start Date End Date Nestor Juárez, DO [address] [place] [address] PCP - General Family Medicine 11/25/13 Double Back Operator Relationship Specialty Start Date End Date Nestor Juárez, DO [address] [place] [address] PCP - General Family Medicine 11/25/13 Double Back Operator Relationship Specialty Start Date End Date Nestor Juárez DO [address] [place] [address] PCP - General Family Medicine 11/25/13 Double Back Operator Relationship Specialty Start Date End Date Nestor Juárez DO [address] [place] [address] PCP - General Family Medicine 11/25/13 Double Back Operator Relationship Specialty Start Date End Date Nestor Juárez, [address] [place] [address] PCP - General Family Medicine 11/25/13 Double Back Operator Relationship Specialty Start Date End Date Nestor Juárez DO [address] [place] [address] PCP - General Family Medicine 11/25/13 Double Back Operator Relationship Specialty Start Date End Date Nestor Juárez DO [address] [place] [address] PCP - General Family Medicine 11/25/13 Double Back Operator Relationship Specialty Start Date End Date Nestor Juárez DO [address] [place] [address] PCP - General Family Medicine 11/25/13 Double Back Operator Relationship Specialty Start Date End Date Nestor Juárez DO [address] [place] [address] PCP - General Family Medicine 11/25/13 Double Back Operator Relationship Specialty Start Date End Date Nestor Juárez DO [address] [place] [address] PCP - General Family Medicine 11/25/13 Double Back Operator Relationship Specialty Start Date End Date Nestor Juárez DO [address] [place] [address] PCP - General Family Medicine 11/25/13 Double Back Operator Relationship Specialty Start Date End Date Nestor Juárez DO [address] [place] [address] PCP - General Family Medicine 11/25/13 Double Back Operator Relationship Specialty Start Date End Date Nestor Juárez DO [address] [place] [address] PCP - General Family Medicine 11/25/13 Double Back Operator Relationship Specialty Start Date End Date Nestor Juárez DO [address] [place] [address] PCP - General Family Medicine 11/25/13 Double Back Operator Relationship Specialty Start Date End Date Nestor Juárez DO [address] [place] [address] PCP - General Family Medicine 11/25/13 Double Back Operator Relationship Specialty Start Date End Date Nestor Juárez DO [address] [place] [address] PCP - General Family Medicine 11/25/13 Double Back Operator Relationship Specialty Start Date End Date Nestor Juárez DO [address] [place] [address] PCP - General Family Medicine 11/25/13 Margaret Tdod APRN.DOG POUND ATTENDANT [address] [place] [address] Library Clerical Assistant Family [facility] 06/15/24 Jey Wright, VOCATIONAL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 [address] [facility] [place] [address] [facility] 06/15/24 Double Back Operator Relationship Specialty Start Date End Date Nestor Juárez DO [address] [facility] [place] [address] PCP - General Family Medicine 11/25/13 Margaret Todd, VOCATIONAL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 [address] [place] [address] [facility] 06/15/24 Jey Wright, VOCATIONAL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 [address] [place] [address] [facility] 06/15/24 Double Back Operator Relationship Specialty Start Date End Date Nestor Juárez DO [address] [facility] [place] [place] [address] PCP - General Family Medicine 11/25/13 Margaret Todd, VOCATIONAL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 [address] [facility] [place] [address] [facility] 06/15/24 Jey Wright, VOCATIONAL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 [address] [place] [address] [facility] 06/15/24 Double Back Operator Relationship Specialty Start Date End Date Nestor Juárez DO [address] [place] [address] PCP - General Family Medicine 11/25/13 Jey Wright, VOCATIONAL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 [address] [facility] [place] [place] [address] Library Clerical [facility] 06/15/24 Double Back Operator Relationship Specialty Start Date End Date Nestor Juárez DO [address] [facility] [place] [place] [address] PCP - General Family Medicine 11/25/13 KyleJey, VOCATIONAL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 [address] [place] [address] [facility] 06/15/24 Chika Gallegos, VOCATIONAL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 [address] [place] [address] [facility] 12/22/24 Double Back Operator Relationship Specialty Start Date End Date Nestor Juárez DO [address] [place] [address] PCP - General Family Medicine 11/25/13 Jey Wright, VOCATIONAL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 [address] [place] [address] [facility] 06/15/24 Chika Gallegos, VOCATIONAL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 [address] [place] [address] [facility] 12/22/24 Double Back Operator Relationship Specialty Start Date End Date Nestor Juárez DO [address] [facility] [place] [place] [address] PCP - General Family Medicine 11/25/13 Jey Wright, VOCATIONAL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 [address] [facility] [place] [place] [address] Library Clerical [facility]High[facility] 06/15/24 Chika Gallegos, VOCATIONAL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 [address] [place] [address] Library Clerical [facility]High[facility] 12/22/24 Double Back Operator Relationship Specialty Start Date End Date Nestor Juárez DO [address] [place] [address] PCP - General Family Medicine 11/25/13 Jey Wright, VOCATIONAL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 [address] [place] [address] [facility] 06/15/24 Chika Gallegos, VOCATIONAL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 [address] [place] [address] [facility] 12/22/24 Double Back Operator Relationship Specialty Start Date End Date Nestor Juárez DO [address] [place] [address] PCP - General Family Medicine 11/25/13 KyleJey, VOCATIONAL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 [address] [place] [address] [facility] 06/15/24 Chika Gallegos, VOCATIONAL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 [address] [place] [address] [facility] 12/22/24 FOR RECORDS PERTAINING TO PATIENTS WHO ARE OR HAVE BEEN ENROLLED IN A CHEMICAL DEPENDENCY/SUBSTANCEABUSE PROGRAM, SOME INFORMATION MAY BE OMITTED. This clinical summary was aggregated from multiple sources. Caution should be exercised in using it in the provision of clinical care. This summary normalizes information from multiple sources, and as a consequence, information in this document may materially change the coding, format and clinical context of patient data. In addition, data may be omitted in some cases. CLINICAL DECISIONS SHOULD BE BASED ON THE PRIMARY CLINICAL RECORDS. [facility] provides no warranty or guarantee of the accuracy or completeness of information in this document.
[2025-04-11 16:31] VITALS: BP 101/64; BP 144/83; PULSE 85; PULSE 89; RESP 16; TEMP 36.6; O2SAT 100; O2SAT 99
== END 2025-04-11 16:39 | disposition home or self-care (01) ==
LOC: ED 16:03
PROVIDERS: Emergency Provider Emergency Medicine; PCP Student in an Organized Health Care Education/Training Program; Visit Provider Emergency Medicine
DX: S22.31XA Fracture of one rib, right side, initial encounter for closed fracture (principal); R10.9 Unspecified abdominal pain; W50.1XXA Accidental kick by another person, initial encounter
CPT/HCPCS: 71046; 96374; 96375; 99283; A4216; J2405